=== PATIENT | male | born 1960 | race Caucasian/White ===

== ENCOUNTER 2020-05-07 10:00 | Day surgery (SDC) | payer OTHER, SELFPAY ==
[2020-05-06 12:41] VITALS: BMI 30.6
--- NOTE | 2020-05-06 13:34 | HO.ANESPROP2 ---
Documented by User: Nicole Espinoza 05/06/20 13:35 HPI - Anesthesia Eval Consult details Narrative: 60yo M for Upper Endoscopy [facility] Past Medical History Medical History (Updated 05/06/20 @ 12:35 by Moi Mike) Allergic rhinitis Anxiety BPH (benign prostatic hyperplasia) Chronic abdominal pain Chronic back pain Congenital cystic kidney disease Constipation Dyslipidemia GERD (gastroesophageal reflux disease) HTN (hypertension) Internal hemorrhoids with complication Metabolic syndrome DUNIA (obstructive sleep apnea) Overweight Surgical History Surgical History (Updated 05/06/20 @ 12:35 by Moi Mike) H/O abdominal surgery H/O colonoscopy H/O hemorrhoidectomy H/O hernia repair History of esophagogastroduodenoscopy (EGD) Social History Social History Smoking Status: Never smoker Second Hand Smoke Exposure: No Use of substances other than those prescribed or required for medical reasons: No Advance Directives: No Advance Directives Information Provided: No Advance Directives on File: No Meds Allergies Allergy/AdvReac Type Severity Reaction Status Date / Time No Known Allergies Allergy Unverified 02/21/20 16:08 Home Medications Medication Instructions Recorded Confirmed Type clonazepam 2 mg PO TID 05/06/20 05/06/20 History lisinopril 1 tab PO DAILY 05/06/20 05/06/20 History loratadine 10 mg PO DAILY 05/06/20 05/06/20 History metoprolol succinate 1 tab PO DAILY 05/06/20 05/06/20 History sildenafil [Viagra] 1 tab PO DAILY 05/06/20 05/06/20 History simethicone 125 mg PO QID 05/06/20 05/06/20 History tamsulosin 1 cap PO DAILY 05/06/20 05/06/20 History Exam Exam Date and Time: May 06, 2020 1334 Height,Weight and Vital Signs: Height 5 ft 6.75 in Weight 87.997 kg Pertinent Lab Results Pertinent Lab Results: Laboratory Tests 01/13/20 03/05/20 11:46 11:46 WBC 5.6 Hgb 17.5 Hct 51.3 Plt Count 169 Sodium 139 Potassium 3.9 Chloride 104 BUN 12 Creatinine 1.11 Assessment and Plan Assessment Anesthesia Assessment: Chart Reviewed Documented by User: Antonietta Lacey 05/07/20 10:31 PMF Past Medical History Medical History (Updated 05/06/20 @ 12:35 by Moi Mike) Allergic rhinitis Anxiety BPH (benign prostatic hyperplasia) Chronic abdominal pain Chronic back pain Congenital cystic kidney disease Constipation Dyslipidemia GERD (gastroesophageal reflux disease) HTN (hypertension) Internal hemorrhoids with complication Metabolic syndrome DUNIA (obstructive sleep apnea) Overweight Surgical History Surgical History (Updated 05/06/20 @ 12:35 by Moi Mike) H/O abdominal surgery H/O colonoscopy H/O hemorrhoidectomy H/O hernia repair History of esophagogastroduodenoscopy (EGD) Social History Social History Smoking Status: Never smoker Second Hand Smoke Exposure: No Use of substances other than those prescribed or required for medical reasons: No Advance Directives: No Advance Directives Information Provided: No Advance Directives on File: No Meds Allergies Allergy/AdvReac Type Severity Reaction Status Date / Time No Known Allergies Allergy Unverified 02/21/20 16:08 Home Medications Medication Instructions Recorded Confirmed Type clonazepam 2 mg PO TID 05/06/20 05/06/20 History lisinopril 1 tab PO DAILY 05/06/20 05/06/20 History loratadine 10 mg PO DAILY 05/06/20 05/06/20 History metoprolol succinate 1 tab PO DAILY 05/06/20 05/06/20 History sildenafil [Viagra] 1 tab PO DAILY 05/06/20 05/06/20 History simethicone 125 mg PO QID 05/06/20 05/06/20 History tamsulosin 1 cap PO DAILY 05/06/20 05/06/20 History Exam Airway Mallampati Class: III TM Dist: >3cm Neck ROM: Full Partial: Upper Heart: Rrr Lungs: CTa BL Assessment and Plan Assessment Anesthesia Assessment: Anesthesia Plan Discussed and Chart Reviewed Final Anesthetic Review NPO: Yes ASA Class: III Final Preanesthetic Review: Meds/Allgs Chart Reviewed and Consent Obtained/Reviewed Patient Risk: Intermediate Procedure Risk: Intermediate Anesthetic Plan Anesthetic Plan: MAC: Disposition: Standard PACU
[2020-05-07 10:22] VITALS: BP 152/92; PULSE 75; RESP 16; TEMP 36.2; O2SAT 96
[2020-05-07] MEDS: Lactated Ringers 1,000 ML 100 ML IVCONT (11:02)
--- NOTE | 2020-05-07 11:35 | P.HPSUR_ITS ---
Pre-Procedural Eval Section B Chief Complaint: Bloating,Upper Abdominal Pain Relevant Family History (Specify if Yes): No Relevant Social History: None Present Medications: see Short Stay Collaborative assessment Medical History: Significant History (Allergic rhinitis Anxiety BPH (benign prostatic hyperplasia) Chronic abdominal pain Chronic back pain Congenital cystic kidney disease Constipation Dyslipidemia GERD (gastroesophageal reflux disease) HTN (hypertension), Internal hemorrhoids, Metabolic syndrome, DUNIA ) History of Previous Operations: Relevant previous surgery/procedure and date(s) (H/O abdominal surgery H/O colonoscopy H/O hemorrhoidectomy H/O hernia repair) Allergies: Allergies Allergy/AdvReac Type Severity Reaction Status Date / Time No Known Allergies Allergy Unverified 02/21/20 16:08 Review of Systems Sugical H&P ROS: Negative: Constitution, Cardiovascular, Respiratory, Neurological, Psychiatric, Hem-Onc, Allergic/Immunologic, Gastrointestinal, Genitourinary, Musculoskeletal, Integumentary, Endocrine and Eyes/Ears/Nose/Throat Exam Surgical H&P Exam: Normal: HEENT, Normal: Heart, Normal: Lungs, Normal: Extre mities, Normal: Abdomen, Normal: Skin and Normal: Neurological Plan Diagnosis/Plan: Unchanged Patient has been examined and remains a candidate for the planned procedure
--- NOTE | 2020-05-07 11:37 | PM.OP ---
Brief Operative Note Date of Service: 05/07/20 Pre-op diagnosis: abdo pain Post-op diagnosis: same Procedure: see op note Surgeon: Tony Shea MD Anesthesia: MAC Estimated blood loss (mL): 0 Condition: stable Disposition: PACU
--- NOTE | 2020-05-07 11:37 | W.PM.OPN ---
Operative Note Operative Note Date of Service: 05/07/20 Narrative: Procedure Description: EGD FLEXIBLE TRANSORAL UPPER GASTROINTESTINAL ENDOSCOPY UPPER ENDOSCOPY Consent: Indications for the procedure and potential complications of bleeding, perforation, reaction to medications and missed diagnosis were discussed with the patient and informed consent was obtained. Instrument: Olympus GIF H 190 J mid size upper endoscope Monitoring: Vital signs and clinical assessment, continuous EKG monitoring, Pulse oximetry, Carbon Dioxide monitoring and blood pressure monitoring were done throughout the procedure. Procedure: The patient was placed in the left lateral decubitis position and pre-procedure medications were administered and a bite block was placed. The endoscope was inserted into the mouth and advanced under direct vision to the third part of duodenum. A careful inspection was made as the upper endoscope was withdrawn including a retroflexed examination of the proximal stomach; Findings and interventions are described below. Findings: Larynx:normal Esophagus: GE junction at 35 cm, diaphragm hiatus at 37 cm, no varices or esophagitis. Possible short segment Barretts, bx taken from GEJ Stomach: Patchy gastric erythema. Biopsies were obtained. Grade 3 flap valve on retroflexed examination of the cardia with lax LES, which would predispose to GERD Duodenum: Normal bulb and descending duodenum, bx taken Intervention: Biopsies as noted above Impression/Findings: gastritis hiatal hernia possible barretts lax LES PLAN: optimize PPI reflux precautions if sx persist then may benefit from fundoplication and hernia repair
[2020-05-07 12:05] VITALS: BP 119/92; PULSE 75; RESP 16; TEMP 36.1; O2SAT 97
[2020-05-07 12:20] VITALS: BP 128/92; PULSE 74; RESP 16; O2SAT 95
[2020-05-07 12:35] VITALS: BP 137/88; PULSE 73; RESP 16; TEMP 36.1; O2SAT 97
== END 2020-05-07 13:19 | disposition home or self-care (01) ==
PROVIDERS: PCP Family Medicine; Visit Provider Internal Medicine Gastroenterology
PROC: 0DJ08ZZ Inspection of Upper Intestinal Tract, Via Natural or Artificial Opening Endoscopic (ICD-10-PCS; CPT 43235; principal; 2020-05-07 10:10)
DX: K29.50 Unspecified chronic gastritis without bleeding (principal); K44.9 Diaphragmatic hernia without obstruction or gangrene; K21.9 Gastro-esophageal reflux disease without esophagitis; J30.9 Allergic rhinitis, unspecified; G47.33 Obstructive sleep apnea (adult) (pediatric); Z79.899 Other long term (current) drug therapy
CPT/HCPCS: 43239; 88305; 88342

== ENCOUNTER 2020-05-23 11:42 | Outpatient (REF) | payer OTHER, SELFPAY | END 2020-05-23 11:43 | disposition home or self-care (01) | LOC: HO.LAB 11:42 | PROVIDERS: PCP Family Medicine; Visit Provider Internal Medicine | DX: Z20.828 Contact with and (suspected) exposure to other viral communicable diseases (principal) | CPT/HCPCS: C9803; U0003 ==

== ENCOUNTER → 2020-07-29 11:13 | Outpatient (BNVA) | payer OTHER, SELFPAY | PROVIDERS: PCP Family Medicine; Visit Provider Internal Medicine Gastroenterology | DX: M79.18 Myalgia, other site (principal) | CPT/HCPCS: 99212 ==

== ENCOUNTER → 2020-08-18 13:33 | Outpatient (BNVA) | payer OTHER, SELFPAY | PROVIDERS: PCP Family Medicine; Visit Provider Nurse Practitioner Family | DX: R19.8 Other specified symptoms and signs involving the digestive system and abdomen (principal) | CPT/HCPCS: 99212 ==

== ENCOUNTER → 2020-09-05 07:25 | Outpatient (REF) | payer OTHER, SELFPAY ==
--- NOTE | ~2020-09-05 | NM_ITS ---
EXAMINATION: NM RADIONUCLIDE SOLID FOOD GASTRIC EMPTYING 4-HOUR STUDY CLINICAL INFORMATION: Early satiety COMPARISON: None TECHNIQUE: A standard meal consisting of 4 oz of Egg Beaters brand tagged with 0.93 microcuries Tc-99m Sulfur Colloid, 8 oz water and 1 slices of toast with jelly was administered orally to the patient. Images were obtained using a dual head gamma camera in the anterior and posterior projections over of the stomach immediately post ingestion and at hourly intervals up to 4 hours post ingestion. The anterior and posterior counts at each time interval were averaged using the geometric mean and expressed as percentage of the immediate post ingestion counts. FINDINGS: There is good visualization of activity in the stomach immediately post ingestion. As the study progresses, there is good clearance of activity from the stomach and visualization of progressively increasing small bowel activity. By the end of the study, there is almost no retention noted in the stomach. Retention in the stomach at each time interval was: 1 hour 29% (normal 37%-90%) 2 hours 2%% (normal 30%-60%) 3 hours 2%% 4 hours 0% (normal 0%-10%) NM/MN gastric emptying study IMPRESSION: Normal 4-hour solid food gastric emptying study.
== END ==
LOC: HO.NUCMED 07:25
PROVIDERS: PCP Family Medicine; Visit Provider Internal Medicine Gastroenterology
DX: R68.81 Early satiety (principal)
CPT/HCPCS: 78264; A9541

== ENCOUNTER 2020-10-10 10:40 | Emergency (ER) | payer OTHER, SELFPAY ==
--- NOTE | ~2020-10-10 | CT_ITS ---
EXAMINATION: CT ABDOMEN AND PELVIS WITH CONTRAST CLINICAL INFORMATION: Abdominal distention x5 days. COMPARISON: CT abdomen and pelvis with IV contrast 01/13/2020 TECHNIQUE: Multidetector volumetric images were obtained from the superior aspect of the liver through the pubic symphysis following administration 85 mL of Omnipaque 350 intravenous contrast. Sagittal and coronal reformatted images were obtained on the technologist's workstation. Oral contrast: No This CT examination was performed using dose optimization techniques as appropriate, variously including the following: *Automated exposure control *Adjustment of mA and/or kV according to patient size (this includes techniques or standardized protocols for targeted exams where dose is matched to indication/reason for exam; i.e. extremities or head) *Use of iterative reconstruction technique DLP: 731 mGy-cm FINDINGS: LUNG BASES: The visualized lung bases are unremarkable. LIVER, GALLBLADDER, AND BILIARY TREE: The liver is normal in size, shape, and attenuation. No focal hepatic lesion or biliary ductal dilatation is present. The gallbladder is unremarkable with no evidence of radiopaque gallstones, gallbladder wall thickening, or obvious pericholecystic inflammatory changes. PANCREAS: Unremarkable. SPLEEN: Unremarkable. ADRENAL GLANDS: Unremarkable. KIDNEYS AND URETERS: The kidneys are normal in size, shape, and attenuation. No hydronephrosis, hydroureter, or calculi seen. No perinephric stranding. There is a hypodense cyst in the upper pole measuring 3.7 x 3.5 cm. BLADDER: Bladder is nondistended. There is no bladder wall thickening. GASTROINTESTINAL TRACT: There is scattered stool and gas seen in the colon without any significant distention. The small bowel loops are normal caliber. Appendix is normal caliber. There is no free air or free fluid. ABDOMINAL WALL: No significant hernia is appreciated. LYMPH NODES: Normal. VASCULAR: Unremarkable. PELVIC VISCERA: Unremarkable. OSSEOUS STRUCTURES: There is mild ventral spondylosis lumbar spine. No fracture or lytic process seen. CT/CT abdomen pelvis w con IMPRESSION: Moderate prostate enlargement with dystrophic calcification central gland. There is no bowel obstruction, distention. There is no free fluid. Simple cyst upper pole left kidney.
[2020-10-10 10:52] VITALS: BP 131/87; PULSE 78; RESP 18; TEMP 36.9; O2SAT 96; BMI 33.3
[2020-10-10 11:32] LABS: MANUAL DIFF FLAG NO
[2020-10-10 11:39] LABS: INTERNATIONAL NORM RATIO 1.1 (0.9-1.1); Prothrombin Time 13.5 SEC (10.8-13.0)
[2020-10-10 11:45] LABS: Basophils Percent Auto 0.2 % (0-2); Eosinophils Absolute Auto 0.1 X10*3/uL (0.0-0.4); Eosinophils Percent Auto 2.4 % (0-4); Hematocrit 49.8 % (42-52); Hemoglobin 16.9 g/dl (14.0-18.0); Imm Gran Abs Auto 0.01 X10*3/uL (0.00-0.03); Imm Gran Pct Auto 0.2 % (0.0-0.4); Lymphocytes Percent Auto 34.2 % (20-40); Mean Corpuscular HGB Conc 33.9 g/dl (31.0-36.0); Mean Corpuscular Volume 91.4 fL (80-98); Mean Platelet Volume 12.2 fL (9.4-12.4); Monocytes Absolute Auto 0.6 X10*3/uL (0.1-1.2); Monocytes Percent Auto 10.3 % (2-11); Neutrophils Absolute Auto 3.1 X10*3/uL (2.0-8.3); Neutrophils Percent Auto 52.7 % (45-73); Platelet Count 154 X10*3/uL (160-400); Red Blood Count 5.45 X10*6/uL (4.60-5.80); Red Cell Distribution Width 12.2 % (11.0-16.0); White Blood Count 5.8 X10*3/uL (4.8-10.8)
[2020-10-10 11:46] VITALS: BP 116/83; PULSE 68; RESP 14; TEMP 37; O2SAT 98
[2020-10-10 12:01] LABS: Glucose Urine UA NEG (NEG); Leukocyte Esterase Urine NEG (NEG); Nitrite Urine NEG (NEG); Specific Gravity - Urine 1.025 (1.005-1.025); Urine Blood TRACE (NEG); Urine Ketones NEG (NEG); Urine Protein NEG (NEG-TRACE)
[2020-10-10 12:03] LABS: Appearance Urine CLEAR; Color Urine YELLOW; Ethanol < 10 mg/dL
[2020-10-10 12:05] LABS: Alanine Aminotransferase 30 U/L (0-40); Albumin Level 4.1 g/dL (3.5-5.0); Alkaline Phosphatase 68 U/L (39-117); Anion Gap 11 (12-20); Aspartate Amino Transferase 23 U/L (5-37); Blood Urea Nitrogen 12 mg/dL (9-16); Carbon Dioxide 26 mmol/L (22-29); Chloride 107 mmol/L (96-108); Creatinine Clr Calc Pharmacy 79.2; Estimated Glomerular Filt Rate > 60; Glucose Random 83 mg/dL (60-115); Lipase 17 U/L (8-78); Magnesium 2.3 mg/dL (1.6-2.6); Sodium 140 mmol/L (135-145); Total Protein 7.1 g/dL (6.5-8.0)
[2020-10-10 12:10] LABS: Mucus Urine 1+ /LPF; RBC Urine 0-2 /HPF (0); Squamous Epithelial Cell Urine TRACE /LPF; WBC Urine 0 /HPF (0-4)
[2020-10-10] MEDS: iohexoL 350 MG/ML 100 ML INFUS..BTL IV (13:27)
--- NOTE | 2020-10-10 13:38 | ED_ITS ---
HPI - Abdominal Pain General Chief Complaint: Abdominal Pain Stated Complaint: BLOTTING ABD PAIN Time Seen by Provider: 10/10/20 10:48 Source: patient Mode of arrival: ambulatory Limitations: language barrier ([place]-speaking) History of Present Illness HPI narrative: 60-year-old male with a past medical history of chronic abdominal pain/fullness in the right upper quadrant where he had an excision of an old lipoma, congenital cystic kidney disease, GERD, BPH, constipation, hemorrhoids, overweight, hypertension, dyslipidemia and anxiety disorder being followed by pesticide control inspector Dr. Shea upper quadrant pain/fullness recently had an endoscope by Dr. Moreau on 05/2018 with biopsy diagnosis of gastritis negative H pylori and colonoscopy on 07/2017 at [facility] by Dr. Hercules which did not show anything significant presenting to the ED with complaints of acute on chronic worsening right upper quadrant abdominal pain/fullness over the past 5 days. Denies any dizziness, headaches, fevers, neck pain/stiffness, nausea/vomiting, chest pain, shortness of breath, dyspnea on exertion, orth opnea, palpitations, radiation of the abdominal pain to the back, hematuria, dysuria, black or bloody stools or any other symptoms complaints or concerns at this time. MD elicited complaint: abdominal pain Pertinent past history: gastritis Onset (ago): day(s) (Five days worse today) Pain Consistency: constant Location: RUQ Severity: moderate Quality: aching and fullness Radiation: none Migration to: no migration Exacerbating factors: nothing Relieving factors: nothing Associated symptoms: denies other symptoms Related Data Home Medications Medication Instructions Recorded Confirmed clonazepam 2 mg PO TID 05/06/20 05/06/20 lisinopril 1 tab PO DAILY 05/06/20 05/06/20 loratadine 10 mg PO DAILY 05/06/20 05/06/20 metoprolol succinate 1 tab PO DAILY 05/06/20 05/06/20 sildenafil [Viagra] 1 tab PO DAILY 05/06/20 05/06/20 simethicone 125 mg PO QID 05/06/20 05/06/20 tamsulosin 1 cap PO DAILY 05/06/20 05/06/20 Previous Rx's Medication Instructions Recorded pantoprazole 40 mg PO BID #60 tab 05/07/20 capsaicin 0.025 % topical cream 1 appl TOPICAL BID #60 g 07/29/20 nortriptyline 10 mg capsule 10 mg PO BEDTIME #30 cap 09/11/20 Allergies Allergy/AdvReac Type Severity Reaction Status Date / Time No Known Allergies Allergy Verified 08/18/20 13:48 Review of Systems Review of Systems Constitutional : No Weight loss, No Fever, No Chills, No Night Sweats, No Fatigue, NoMalaise ENT/Mouth: No ear pain, No sore throat, No Difficulty swallowing Cardiovascular : No Chest Pain, No SOB, No Dyspnea on Exertion, No Orthopnea, NoEdema, No Palpitations Respiratory : No Cough, No Sputum, No Wheezing, No Dyspnea Gastrointestinal : Positive abdominal pain/fullness/distension sensation No Dell sea, No Vomiting, No Diarrhea, No blood streaked emesis, No coffee-ground emesis, No gross hematemesis, No blood streak stool, No gross hematochezia, No Melena Genitourinary : No irregular bleeding, No Dysuria, No Urinary Frequency, No Hematuria,No Urinary Incontinence, No Urgency, No Flank Pain Musculoskeletal : No joint pain, No Myalgias, No Joint Swelling Skin : No Skin Lesions, No rash Neuro : No Weakness, No Numbness, No Paresthesias, No Loss of Consciousness, NoDizziness, No Headache Psych : No Social Issues, Heme/Lymph: No Bruising, No Bleeding,No Lymphadenopathy Endocrine : No Polyuria, No Polydipsia, No Temperature Intolerance Yes all other systems are reviewed and are negative Physical Exam Vital Signs: Vital Signs: Last Vital Signs Temp 98.6 F 10/10/20 11:46 Pulse 68 10/10/20 11:46 Resp 14 10/10/20 11:46 BP 116/83 10/10/20 11:46 Pulse Ox 98 10/10/20 11:46 Body Mass Index 33.3 vital signs have been reviewed as normal and appeared to be correct. Blood pressure normal. Heart rate normal. Respiration rate normal. Temperature normal. Oxygen saturation normal. Appearance: Alert. Oriented X3. No acute distress. Head: Normal external exam. Normocephalic. Eyes: PERRLA. EOMI. Conjunctiva and sclera normal. Eyelids normal. ENT: Pharynx normal. Uvula midline. Moist mucous membranes. No trismus noted. No drooling noted. No muffled voice noted. Neck: Normal inspection. Neck supple. FROM. No adenopathy. No meningeal signs. CVS: Normal heart rate and rhythm. Heart sound normal. No murmurs noted. Pulses normal throughout. Respiratory: No respiratory distress. Painless inspiration. Breath sounds normal. No wheezes/rales/rhonchi noted. Chest nontender. No accessory muscle usage noted or decreased air movement noted. Abdomen: Soft and mild tenderness to palpation to right upper quadrant. Nondistended. No guarding. No rigidity. Bowel sounds normal in all 4 quadrants. No distention noted. No organomegaly noted. No visible injury noted. No r ebound tenderness. Negative Rovsing sign. Negative obturator's sign. Negative psoas sign. Negative Benton sign. Back: No CVA tenderness. Full range of motion noted. Skin: Skin warm and dry. Normal skin color. Normal skin turgor. No rashes/lesions/lacerations noted. Extremities: Extremities exhibit normal range of motion. Extremities nontender. Neuro: Oriented X 3. No motor deficit. No sensory deficit. Reflexes normal. Normal steady gait. Course Course Course Narrative: 14:30pm - labs obtained and all within normal limits. UA within normal limits no evidence of UTI. ETOH level negative. CT scan of abdomen and pelvis revealed chronic changes no acute processes noted. Therefore will DC home with symptomatic treatment instructions to follow-up with pesticide control inspector. Sharon ent understands agrees with this plan. MDM - Abdominal Pain MDM Narrative Medical decision making narrative: 11am - 60-year-old male with a past medical history of chronic abdominal pain/fullness in the right upper quadrant where he had an excision of an old lipoma, congenital cystic kidney disease, GERD, BPH, constipation, hemorrhoids, overweight, hypertension, dyslipidemia and anxiety disorder being followed by pesticide control inspector Dr. Shea upper quadrant pain/fullness recently had an endoscope by Dr. Moreau on 05/2018 with biopsy diagnosis of gastritis negative H pylori and colonoscopy on 07/2017 at [facility] by Dr. Hercules which did not show anything significant presenting to the ED with complaints of acute on chronic worsening right upper quadrant abdominal pain/fullness over the past 5 days. - Plan: Labs, CT scan of abdomen pelvis, UA. Then re-evaluate. Medical Records Attestation: I reviewed the patient's medical records. Lab Data Attestation: I reviewed the patient's lab results. Result diagrams: 10/10/20 11:25 10/10/20 11:25 Labs: Lab Results 10/10/20 10/10/20 10/10/20 Range/Units 11:25 11:25 11:25 WBC 5.8 (4.8-10.8) X10*3/uL RBC 5.45 (4.60-5.80) X10*6/uL Hgb 16.9 (14.0-18.0) g/dl Hct 49.8 (42-52) % MCV 91.4 (80-98) fL MCH 31.0 (27.0-33.0) pg MCHC 33.9 (31.0-36.0) g/dl RDW 12.2 (11.0-16.0) % Plt Count 154 L (160-400) X10*3/uL MPV 12.2 (9.4-12.4) fL Immature Gran % (Auto) 0.2 (0.0-0.4) % Neut % (Auto) 52.7 (45-73) % Lymph % (Auto) 34.2 (20-40) % Mineral % (Auto) 10.3 (2-11) % Eos % (Auto) 2.4 (0-4) % Baso % (Auto) 0.2 (0-2) % Lymph # (Auto) 2.0 (1.2-4.9) X10*3/uL Mineral # (Auto) 0.6 (0.1-1.2) X10*3/uL Eos # (Auto) 0.1 (0.0-0.4) X10*3/uL Baso # (Auto) 0.0 (0.0-0.2) X10*3/uL Abs Immat Gran (auto) 0.01 (0.00-0.03) X10*3/uL Absolute Neuts (auto) 3.1 (2.0-8.3) X10*3/uL Absolute Nucleated RBC 0.000 (0.0-0.012) X10*3/uL Nucleated RBC % (auto) 0.0 (0.0-0.2) /100WBC Hold Purple Top SEE NOTE PT 13.5 H (10.8-13.0) SEC INR 1.1 (0.9-1.1) Sodium (135-145) mmol/L Potassium (3.3-5.1) mmol/L Chloride (96-108) mmol/L Carbon Dioxide (22-29) mmol/L Anion Gap (12-20) BUN (9-16) mg/dL Creatinine (0.5-1.4) mg/dL Estim Creat Clear Calc Estimated GFR Random Glucose (60-115) mg/dL Calcium (8.4-10.2) mg/dL Magnesium (1.6-2.6) mg/dL Total Bilirubin (0.0-1.0) mg/dL AST (5-37) U/L ALT (0-40) U/L Alkaline Phosphatase (39-117) U/L Total Protein (6.5-8.0) g/dL Albumin (3.5-5.0) g/dL Lipase (8-78) U/L Urine Color Urine Appearance Urine pH (5.0-8.0) Ur Specific Sod (1.005-1.025) Urine Protein (NEG-TRACE) MG/DL Urine Glucose (UA) (NEG) MG/DL Urine Ketones (NEG) MG/DL Urine Blood (NEG) Urine Nitrite (NEG) Ur Leukocyte Esterase (NEG) Urine RBC (0) /HPF Urine WBC (0-4) /HPF Ur Squamous Epith Cells /LPF Urine Bacteria /LPF Urine Mucus /LPF Ethyl Alcohol mg/dL 10/10/20 10/10/20 10/10/20 Range/Units 11:25 11:25 11:25 WBC (4.8-10.8) X10*3/uL RBC (4.60-5.80) X10*6/uL Hgb (14.0-18.0) g/dl Hct (42-52) % MCV (80-98) fL MCH (27.0-33.0) pg MCHC (31.0-36.0) g/dl RDW (11.0-16.0) % Plt Count (160-400) X10*3/uL MPV (9.4-12.4) fL Immature Gran % (Auto) (0.0-0.4) % Neut % (Auto) (45-73) % Lymph % (Auto) (20-40) % Mineral % (Auto) (2-11) % Eos % (Auto) (0-4) % Baso % (Auto) (0-2) % Lymph # (Auto) (1.2-4.9) X10*3/uL Mineral # (Auto) (0.1-1.2) X10*3/uL Eos # (Auto) (0.0-0.4) X10*3/uL Baso # (Auto) (0.0-0.2) X10*3/uL Abs Immat Gran (auto) (0.00-0.03) X10*3/uL Absolute Neuts (auto) (2.0-8.3) X10*3/uL Absolute Nucleated RBC (0.0-0.012) X10*3/uL Nucleated RBC % (auto) (0.0-0.2) /100WBC Hold Purple Top PT (10.8-13.0) SEC INR (0.9-1.1) Sodium 140 (135-145) mmol/L Potassium 4.0 (3.3-5.1) mmol/L Chloride 107 (96-108) mmol/L Carbon Dioxide 26 (22-29) mmol/L Anion Gap 11 L (12-20) BUN 12 (9-16) mg/dL Creatinine 1.04 (0.5-1.4) mg/dL Estim Creat Clear Calc 79.2 Estimated GFR > 60 Random Glucose 83 (60-115) mg/dL Calcium 9.0 (8.4-10.2) mg/dL Magnesium 2.3 (1.6-2.6) mg/dL Total Bilirubin 1.0 (0.0-1.0) mg/dL AST 23 (5-37) U/L ALT 30 (0-40) U/L Alkaline Phosphatase 68 (39-117) U/L Total Protein 7.1 (6.5-8.0) g/dL Albumin 4.1 (3.5-5.0) g/dL Lipase 17 (8-78) U/L Urine Color YELLOW Urine Appearance CLEAR Urine pH 6.0 (5.0-8.0) Ur Specific Sod 1.025 (1.005-1.025) Urine Protein NEG (NEG-TRACE) MG/DL Urine Glucose (UA) NEG (NEG) MG/DL Urine Ketones NEG (NEG) MG/DL Urine Blood TRACE (NEG) Urine Nitrite NEG (NEG) Ur Leukocyte Esterase NEG (NEG) Urine RBC 0-2 (0) /HPF Urine WBC 0 (0-4) /HPF Ur Squamous Epith Cells TRACE /LPF Urine Bacteria NONE /LPF Urine Mucus 1+ /LPF Ethyl Alcohol < 10 mg/dL Imaging Data CT scan of abdomen and pelvis with IV contrast: Attestation: I personally reviewed and interpreted this imaging study as follows: Radiologist's impression: FINDINGS: LUNG BASES: The visualized lung bases are unremarkable. LIVER, GALLBLADDER, AND BILIARY TREE: The liver is normal in size, shape, and attenuation. No focal hepatic lesion or biliary ductal dilatation is present. The gallbladder is unremarkable with no evidence of radiopaque gallstones, gallbladder wall thickening, or obvious pericholecystic inflammatory changes. PANCREAS: Unremarkable. SPLEEN: Unremarkable. ADRENAL GLANDS: Unremarkable. KIDNEYS AND URETERS: The kidneys are normal in size, shape, and attenuation. No hydronephrosis, hydroureter, or calculi seen. No perinephric stranding. There is a hypodense cyst in the upper pole measuring 3.7 x 3.5 cm. BLADDER: Bladder is nondistended. There is no bladder wall thickening. GASTROINTESTINAL TRACT: There is scattered stool and gas seen in the colon without any significant distention. The small bowel loops are normal caliber. Appendix is normal caliber. There is no free air or free fluid. ABDOMINAL WALL: No significant hernia is appreciated. LYMPH NODES: Normal. VASCULAR: Unremarkable. PELVIC VISCERA: Unremarkable. OSSEOUS STRUCTURES: There is mild ventral spondylosis lumbar spine. No fracture or lytic process seen. CT/CT abdomen pelvis w con IMPRESSION: Moderate prostate enlargement with dystrophic calcification central gland. There is no bowel obstruction, distention. There is no free fluid. Simple cyst upper pole left kidney. Critical Care Time Critical Care Time Critical Care Time: Yes Total Critical Care Time: 60 Attestation: I personally attest to this time spent taking care of the patient Discharge Plan Discharge Clinical Impression: Abdominal pain, Abdominal distension, Enlarged prostate, Kidney cysts Patient Disposition: Home, Self-Care Instructions: Abdominal Pain (ED), Kidney Cyst (ED) Prescriptions: No Action nortriptyline 10 mg capsule 10 mg PO BEDTIME Qty: 30 RF: 1 sildenafil [Viagra] 50 mg tablet 1 tab PO DAILY RF: 0 lisinopril 20 mg tablet 1 tab PO DAILY RF: 0 metoprolol succinate 100 mg tablet extended release 24 hr 1 tab PO DAILY RF: 0 tamsulosin 0.4 mg capsule 1 cap PO DAILY RF: 0 clonazepam 2 mg Tablet 2 mg PO TID RF: 0 simethicone 125 mg tablet,chewable 125 mg PO QID RF: 0 loratadine 10 mg Tablet 10 mg PO DAILY RF: 0 pantoprazole 40 mg tablet,delayed release (DR/EC) 40 mg PO BID Qty: 60 RF: 4 capsaicin 0.025 % cream 1 appl topical BID Qty: 60 RF: 1 Referrals: Tony Shea MD [Physician] - 2 days Guerline Mckeon MD [Primary Care Provider] - 2 days Print Language: [place] [facility] Past Medical History Attestation statement: The following information was validated with the patient. Medical History Allergic rhinitis Anxiety BPH (benign prostatic hyperplasia) Chronic abdominal pain Chronic back pain Congenital cystic kidney disease Constipation Dyslipidemia GERD (gastroesophageal reflux disease) HTN (hypertension) Internal hemorrhoids with complication Metabolic syndrome DUNIA (obstructive sleep apnea) Overweight Surgical History H/O abdominal surgery H/O colonoscopy H/O hemorrhoidectomy H/O hernia repair History of esophagogastroduodenoscopy (EGD) Social History Social History Household Members: None Alcohol intake: never Smoking Status: Never smoker Second Hand Smoke Exposure: No Use of substances other than those prescribed or required for medical reasons: No Advance Directives: No Advance Directives Information Provided: No Current occupational status: unemployed
[2020-10-10 14:50] VITALS: BP 148/101; PULSE 72; RESP 16; TEMP 37.2; O2SAT 96
== END 2020-10-10 15:15 | disposition home or self-care (01) ==
PROVIDERS: Physician Assistant Medical; Emergency Provider Emergency Medicine; PCP Family Medicine
DX: R10.11 Right upper quadrant pain (principal); R14.0 Abdominal distension (gaseous); N40.0 Benign prostatic hyperplasia without lower urinary tract symptoms; N28.1 Cyst of kidney, acquired; I10 Essential (primary) hypertension; E78.5 Hyperlipidemia, unspecified
CPT/HCPCS: 36415; 74177; 80053; 80320; 81001; 81003; 83690; 83735; 85025; 85610; 99284; 99291; Q9967

== ENCOUNTER → 2020-10-17 08:50 | Outpatient (BNVA) | payer OTHER, SELFPAY | PROVIDERS: PCP Family Medicine; Visit Provider Internal Medicine Gastroenterology | DX: K59.00 Constipation, unspecified (principal) | CPT/HCPCS: 99212 ==

== ENCOUNTER → 2020-11-24 14:16 | Outpatient (BNVA) | payer OTHER, SELFPAY | PROVIDERS: PCP Family Medicine; Referring Provider Family Medicine; Visit Provider Surgery | DX: L76.82 Other postprocedural complications of skin and subcutaneous tissue (principal); K64.9 Unspecified hemorrhoids | CPT/HCPCS: 46600; 99212 ==

== ENCOUNTER 2020-12-15 12:52 | Outpatient (REF) | payer OTHER, SELFPAY ==
--- NOTE | ~2020-12-15 | US_ITS ---
EXAMINATION: US ABDOMEN LIMITED CLINICAL INFORMATION: Other postprocedural complications of skin. History of previous hernia repair. COMPARISON: CT abdomen pelvis 10/10/2020. Ultrasound abdomen 01/13/2020. TECHNIQUE: Real-time imaging of the right abdominal wall FINDINGS: No hernia is appreciated by ultrasound. No solid or cystic soft tissue mass or fluid collection is seen. US/US abdomen limited IMPRESSION: No abnormality seen by ultrasound.
== END 2020-12-15 12:53 | disposition home or self-care (01) ==
LOC: HO.US 12:52
PROVIDERS: Visit Provider Surgery
DX: L76.82 Other postprocedural complications of skin and subcutaneous tissue (principal)
CPT/HCPCS: 76705

== ENCOUNTER → 2020-12-17 11:04 | Outpatient (BNVA) | payer OTHER, SELFPAY | PROVIDERS: PCP Family Medicine; Referring Provider Family Medicine; Visit Provider Surgery | DX: L76.82 Other postprocedural complications of skin and subcutaneous tissue (principal) | CPT/HCPCS: 99212 ==

== ENCOUNTER → 2021-05-11 09:05 | Outpatient (BNVA) | payer OTHER, SELFPAY | PROVIDERS: PCP Family Medicine; Referring Provider Family Medicine; Visit Provider Internal Medicine Gastroenterology | DX: K21.9 Gastro-esophageal reflux disease without esophagitis (principal) | CPT/HCPCS: Q3014 ==

== ENCOUNTER 2021-05-11 09:54 | Outpatient (REF) | payer OTHER, SELFPAY | END 2021-05-11 09:55 | disposition home or self-care (01) | LOC: HO.LAB 09:54 | PROVIDERS: PCP Family Medicine; Visit Provider Internal Medicine | DX: Z20.822 Contact with and (suspected) exposure to COVID-19 (principal) | CPT/HCPCS: C9803; U0003; U0005 ==

== ENCOUNTER 2021-09-10 16:15 | Emergency (ER) | payer OTHER, SELFPAY ==
[2021-09-10 16:43] VITALS: BP 151/103; PULSE 125; RESP 18; TEMP 36.9; O2SAT 98; BMI 31.6
--- NOTE | 2021-09-10 19:16 | ED_ITS ---
HPI - General Adult General Chief complaint: Anxiety Stated complaint: unable to sleep Time Seen by Provider: 09/10/21 19:03 Source: patient Mode of arrival: ambulatory Limitations: no limitations History of Present Illness HPI narrative: Patient history of anxiety Klonopin 2 mg twice daily which she has been taking also supposed to be on Seroquel which she is not taking as he does not like the medicine side effects. Comes to the ER as he is not able to sleep for last 10 days very anxious unable to focus requesting to stay in the hospital as was in the past when he had similar episode here to stay in the hospital. Patient denied any hallucination or delusion patient lives alone no suicidal ideation or significant depression Related Data Home Medications Medication Instructions Recorded Confirmed clonazepam 1 mg tablet 1 tab PO BID 09/10/21 09/10/21 lisinopril 20 mg tablet 1 tab PO DAILY 09/10/21 09/10/21 metoprolol succinate 100 mg 1 tab PO DAILY 09/10/21 09/10/21 tablet,extended release 24 hr nortriptyline 10 mg capsule 1 cap PO BEDTIME 09/10/21 09/10/21 omeprazole 40 mg capsule,delayed 1 cap PO DAILY 09/10/21 09/10/21 release oxybutynin chloride 5 mg tablet 1 tab PO BEDTIME 09/10/21 09/10/21 pravastatin 40 mg tablet 1 tab PO BEDTIME 09/10/21 09/10/21 quetiapine 100 mg tablet 1 tab PO BEDTIME 09/10/21 09/10/21 Allergies Allergy/AdvReac Type Severity Reaction Status Date / Time No Known Allergies Allergy Verified 05/11/21 09:12 Review of Systems Review of Systems: Yes all other systems are reviewed and are negative [facility] Past Medical History Medical History Allergic rhinitis Anxiety BPH (benign prostatic hyperplasia) Chronic abdominal pain Chronic back pain Congenital cystic kidney disease Constipation Dyslipidemia GERD (gastroesophageal reflux disease) Hemorrhoids HTN (hypertension) Incisional pain Internal hemorrhoids with complication Metabolic syndrome DUNIA (obstructive sleep apnea) Overweight Surgical History H/O abdominal surgery H/O colonoscopy H/O hemorrhoidectomy H/O hernia repair History of esophagogastroduodenoscopy (EGD) Social History Social History Household Members: None Alcohol intake: never Patient Tobacco Use Status: Never used Tobacco Smoked in Last 30 Days: No Second Hand Smoke Exposure: No Use of substances other than those prescribed or required for medical reasons: No Advance Directives: No Advance Directives Information Provided: No Current occupational status: unemployed Physical Exam ED Vital Signs: Vital Signs - 24 hr 09/10/21 16:43 09/10/21 21:18 Temperature 98.5 F Pulse Rate 125 H 109 H Respiratory Rate 18 14 Blood Pressure 151/103 H 140/92 H Pulse Oximetry 98 97 BMI result Body Mass Index 31.6 Appearance: Alert. Oriented X3. No acute distress. Very anxious Eyes: PERRLA, No Nystagmus ENT: Pharynx normal. Oral Mucosa moist Neck: Normal inspection. Neck supple. CVS: Normal heart rate and rhythm. Pulses normal. Respiratory: No respiratory distress. Equal air entry bilateral, no wheezing/rales/rhonchi Abdomen: Soft and nontender. Bowel sounds are present, no mass palpable, no CVA tenderness Skin: Skin warm and dry. Normal skin color. Normal skin turgor. Extremities: No lower extremity edema. No calf tenderness psych: Very anxious no suicidal ideation or depression judgment fair no hallucination/ delusion Neuro: Oriented X 3. No motor deficit. No sensory deficit.No cerebellar signs , cranial nerves II-XII intact Medical Decision Making MDM Narrative Medical decision making narrative: Patient's increased anxiety lab workup stable except for mild UTI will pr escribe him Ceftin 500 mg twice daily for 7 days patient is medically cleared for crisis evaluation Lab Data Lab results reviewed: Yes I reviewed the patient's lab results. Result diagrams: 09/10/21 23:15 09/10/21 23:15 Labs: Lab Results 09/10/21 09/10/21 09/10/21 Range/Units 23:15 23:15 23:15 WBC 12.9 H (4.8-10.8) X10*3/uL RBC 5.43 (4.60-5.80) X10*6/uL Hgb 17.0 (14.0-18.0) g/dl Hct 51.1 (42.0-52.0) % MCV 94.1 (80.0-98.0) fL MCH 31.3 (27.0-33.0) pg MCHC 33.3 (31.0-36.0) g/dl RDW 12.0 (11.0-16.0) % Plt Count 202 (160-400) X10*3/uL MPV 11.7 (9.4-12.4) fL Immature Gran % (Auto) 0.3 (0.0-0.4) % Neut % (Auto) 77.9 H (45-73) % Lymph % (Auto) 14.9 L (20-40) % [place] % (Auto) 6.4 (2-11) % Eos % (Auto) 0.3 (0-4) % Baso % (Auto) 0.2 (0-2) % Lymph # (Auto) 1.9 (1.2-4.9) X10*3/uL [place] # (Auto) 0.8 (0.1-1.2) X10*3/uL Eos # (Auto) 0.0 (0.0-0.4) X10*3/uL Baso # (Auto) 0.0 (0.0-0.2) X10*3/uL Abs Immat Gran (auto) 0.04 H (0.00-0.03) X10*3/uL Absolute Neuts (auto) 10.0 H (2.0-8.3) x10*3/uL Absolute Nucleated RBC 0.000 (0.0-0.012) X10*3/uL Nucleated RBC % (auto) 0.0 (0.0-0.2) /100WBC Sodium 141 (135-145) mmol/L Potassium 3.8 (3.3-5.1) mmol/L Chloride 106 (96-108) mmol/L Carbon Dioxide 24 (22-29) mmol/L Anion Gap 15 (12-20) BUN 17 H (9-16) mg/dL Creatinine 1.07 (0.5-1.4) mg/dL Estim Creat Clear Calc 74.2 Estimated GFR > 60 Random Glucose 145 H D (60-115) mg/dL Calcium 9.3 (8.4-10.2) mg/dL Total Bilirubin 1.1 H (0.0-1.0) mg/dL AST 54 H (5-37) U/L ALT 59 H (0-40) U/L Alkaline Phosphatase 73 (39-117) U/L Total Protein 7.4 (6.5-8.0) g/dL Albumin 3.9 (3.5-5.0) g/dL TSH (0.32-4.0) uIU/mL Urine Color Urine Appearance Urine pH (5.0-8.0) Ur Specific [place] (1.005-1.025) Urine Protein (NEG-TRACE) MG/DL Urine Glucose (UA) (NEG) MG/DL Urine Ketones (NEG) MG/DL Urine Blood (NEG) Urine Nitrite (NEG) Ur Leukocyte Esterase (NEG) Urine RBC (0) /HPF Urine WBC (0-4) /HPF Ur Squamous Epith Cells /LPF Urine Bacteria /LPF Urine Opiates Screen (Not Detect) Urine Fentanyl Screen (Not Detect) Ur Barbiturates Screen (Not Detect) Ur Phencyclidine Scrn (Not Detect) Ur Amphetamines Screen (Not Detect) U Benzodiazepines Scrn (Not Detect) Urine Cocaine Screen (Not Detect) U Marijuana (THC) Screen (Not Detect) Ethyl Alcohol mg/dL COVID-19 (CEE) Negative (Negative) COVID-19 Clin Com See Note 09/10/21 09/10/21 09/10/21 Range/Units 23:15 23:15 23:15 WBC (4.8-10.8) X10*3/uL RBC (4.60-5.80) X10*6/uL Hgb (14.0-18.0) g/dl Hct (42.0-52.0) % MCV (80.0-98.0) fL MCH (27.0-33.0) pg MCHC (31.0-36.0) g/dl RDW (11.0-16.0) % Plt Count (160-400) X10*3/uL MPV (9.4-12.4) fL Immature Gran % (Auto) (0.0-0.4) % Neut % (Auto) (45-73) % Lymph % (Auto) (20-40) % [place] % (Auto) (2-11) % Eos % (Auto) (0-4) % Baso % (Auto) (0-2) % Lymph # (Auto) (1.2-4.9) X10*3/uL [place] # (Auto) (0.1-1.2) X10*3/uL Eos # (Auto) (0.0-0.4) X10*3/uL Baso # (Auto) (0.0-0.2) X10*3/uL Abs Immat Gran (auto) (0.00-0.03) X10*3/uL Absolute Neuts (auto) (2.0-8.3) x10*3/uL Absolute Nucleated RBC (0.0-0.012) X10*3/uL Nucleated RBC % (auto) (0.0-0.2) /100WBC Sodium (135-145) mmol/L Potassium (3.3-5.1) mmol/L Chloride (96-108) mmol/L Carbon Dioxide (22-29) mmol/L Anion Gap (12-20) BUN (9-16) mg/dL Creatinine (0.5-1.4) mg/dL Estim Creat Clear Calc Estimated GFR Random Glucose (60-115) mg/dL Calcium (8.4-10.2) mg/dL Total Bilirubin (0.0-1.0) mg/dL AST (5-37) U/L ALT (0-40) U/L Alkaline Phosphatase (39-117) U/L Total Protein (6.5-8.0) g/dL Albumin (3.5-5.0) g/dL TSH 3.35 (0.32-4.0) uIU/mL Urine Color YELLOW Urine Appearance CLOUDY Urine pH 5.5 (5.0-8.0) Ur Specific [place] >= 1.030 H (1.005-1.025) Urine Protein 2+ H (NEG-TRACE) MG/DL Urine Glucose (UA) NEG (NEG) MG/DL Urine Ketones 5 (NEG) MG/DL Urine Blood 3+ H (NEG) Urine Nitrite NEG (NEG) Ur Leukocyte Esterase 2+ H (NEG) Urine RBC 5-9 H (0) /HPF Urine WBC 15-29 H (0-4) /HPF Ur Squamous Epith Cells TRACE /LPF Urine Bacteria 1+ /LPF Urine Opiates Screen Not Detected (Not Detect) Urine Fentanyl Screen Not Detected (Not Detect) Ur Barbiturates Screen Not Detected (Not Detect) Ur Phencyclidine Scrn Not Detected (Not Detect) Ur Amphetamines Screen Not Detected (Not Detect) U Benzodiazepines Scrn POSITIVE H (Not Detect) Urine Cocaine Screen Not Detected (Not Detect) U Marijuana (THC) Screen Not Detected (Not Detect) Ethyl Alcohol mg/dL COVID-19 (CEE) (Negative) COVID-19 Clin Com 09/10/21 Range/Units 23:15 WBC (4.8-10.8) X10*3/uL RBC (4.60-5.80) X10*6/uL Hgb (14.0-18.0) g/dl Hct (42.0-52.0) % MCV (80.0-98.0) fL MCH (27.0-33.0) pg MCHC (31.0-36.0) g/dl RDW (11.0-16.0) % Plt Count (160-400) X10*3/uL MPV (9.4-12.4) fL Immature Gran % (Auto) (0.0-0.4) % Neut % (Auto) (45-73) % Lymph % (Auto) (20-40) % [place] % (Auto) (2-11) % Eos % (Auto) (0-4) % Baso % (Auto) (0-2) % Lymph # (Auto) (1.2-4.9) X10*3/uL [place] # (Auto) (0.1-1.2) X10*3/uL Eos # (Auto) (0.0-0.4) X10*3/uL Baso # (Auto) (0.0-0.2) X10*3/uL Abs Immat Gran (auto) (0.00-0.03) X10*3/uL Absolute Neuts (auto) (2.0-8.3) x10*3/uL Absolute Nucleated RBC (0.0-0.012) X10*3/uL Nucleated RBC % (auto) (0.0-0.2) /100WBC Sodium (135-145) mmol/L Potassium (3.3-5.1) mmol/L Chloride (96-108) mmol/L Carbon Dioxide (22-29) mmol/L Anion Gap (12-20) BUN (9-16) mg/dL Creatinine (0.5-1.4) mg/dL Estim Creat Clear Calc Estimated GFR Random Glucose (60-115) mg/dL Calcium (8.4-10.2) mg/dL Total Bilirubin (0.0-1.0) mg/dL AST (5-37) U/L ALT (0-40) U/L Alkaline Phosphatase (39-117) U/L Total Protein (6.5-8.0) g/dL Albumin (3.5-5.0) g/dL TSH (0.32-4.0) uIU/mL Urine Color Urine Appearance Urine pH (5.0-8.0) Ur Specific [place] (1.005-1.025) Urine Protein (NEG-TRACE) MG/DL Urine Glucose (UA) (NEG) MG/DL Urine Ketones (NEG) MG/DL Urine Blood (NEG) Urine Nitrite (NEG) Ur Leukocyte Esterase (NEG) Urine RBC (0) /HPF Urine WBC (0-4) /HPF Ur Squamous Epith Cells /LPF Urine Bacteria /LPF Urine Opiates Screen (Not Detect) Urine Fentanyl Screen (Not Detect) Ur Barbiturates Screen (Not Detect) Ur Phencyclidine Scrn (Not Detect) Ur Amphetamines Screen (Not Detect) U Benzodiazepines Scrn (Not Detect) Urine Cocaine Screen (Not Detect) U Marijuana (THC) Screen (Not Detect) Ethyl Alcohol < 10 mg/dL COVID-19 (CEE) (Negative) COVID-19 Clin Com Discharge Plan Discharge Clinical Impression: Anxiety, UTI (urinary tract infection) Patient Disposition: Still a Patient Prescriptions: No Action metoprolol succinate 100 mg tablet extended release 24 hr 1 tab PO DAILY 0RF lisinopril 20 mg tablet 1 tab PO DAILY 0RF quetiapine 100 mg tablet 1 tab PO BEDTIME 0RF clonazepam 1 mg tablet 1 tab PO BID 0RF pravastatin 40 mg tablet 1 tab PO BEDTIME 0RF omeprazole 40 mg capsule,delayed release(DR/EC) 1 cap PO DAILY 0RF nortriptyline 10 mg capsule 1 cap PO BEDTIME 0RF oxybutynin chloride 5 mg tablet 1 tab PO BEDTIME 0RF
[2021-09-10] MEDS: clonazePAM 1 MG TABLET PO (20:13)
[2021-09-10 21:18] VITALS: BP 140/92; PULSE 109; RESP 14; O2SAT 97
--- NOTE | 2021-09-10 22:54 | MHC.CARE ---
CARE Team meets with pt. He is profoundly anxious and states that he has had minimal sleep in the past 10 days. He reports multiple panic attacks, and decreased apatite. He reports that in 2002 he had a similar experience and was hospitalized here at [facility] [place]. He feels he needs to be admitted to psychiatry. CARE Team recommends that pt remain in the ED for full crisis assessment.
[2021-09-10 23:25] LABS: Appearance Urine CLOUDY; Color Urine YELLOW; Glucose Urine UA NEG (NEG); Leukocyte Esterase Urine 2+ (NEG); MANUAL DIFF FLAG NO; Nitrite Urine NEG (NEG); PH 5.5 (5.0-8.0); Specific Gravity - Urine >= 1.030 (1.005-1.025); Urine Blood 3+ (NEG); Urine Ketones 5 MG/DL (NEG); Urine Protein 2+ MG/DL (NEG-TRACE)
[2021-09-10 23:28] LABS: Basophils Percent Auto 0.2 % (0-2); Eosinophils Percent Auto 0.3 % (0-4); Hematocrit 51.1 % (42.0-52.0); Imm Gran Abs Auto 0.04 X10*3/uL (0.00-0.03); Imm Gran Pct Auto 0.3 % (0.0-0.4); Lymphocytes Absolute Auto 1.9 X10*3/uL (1.2-4.9); Lymphocytes Percent Auto 14.9 % (20-40); Mean Corpuscular HGB Conc 33.3 g/dl (31.0-36.0); Mean Corpuscular Hemoglobin 31.3 pg (27.0-33.0); Mean Corpuscular Volume 94.1 fL (80.0-98.0); Mean Platelet Volume 11.7 fL (9.4-12.4); Monocytes Absolute Auto 0.8 X10*3/uL (0.1-1.2); Monocytes Percent Auto 6.4 % (2-11); Neutrophils Percent Auto 77.9 % (45-73); Platelet Count 202 X10*3/uL (160-400); Red Blood Count 5.43 X10*6/uL (4.60-5.80); White Blood Count 12.9 X10*3/uL (4.8-10.8)
[2021-09-10 23:36] LABS: Bacteria Urine 1+ /LPF; Squamous Epithelial Cell Urine TRACE /LPF
[2021-09-10 23:47] LABS: Ethanol < 10 mg/dL
[2021-09-10 23:52] LABS: Amphetamine Screen Urine Not Detected (Not Detect); Barbiturates, Urine Not Detected (Not Detect); Benzodiazepines Screen Urine POSITIVE (Not Detect); COVID-19 Test Negative (Negative); Cannabinoid Screen Urine Not Detected (Not Detect); Cocaine Screen Urine Not Detected (Not Detect); Fentanyl, urine Not Detected (Not Detect); Opiate Screen Urine Not Detected (Not Detect); Phencyclidine Screen Urine Not Detected (Not Detect)
[2021-09-10 23:57] LABS: Alanine Aminotransferase 59 U/L (0-40); Albumin Level 3.9 g/dL (3.5-5.0); Alkaline Phosphatase 73 U/L (39-117); Anion Gap 15 (12-20); Aspartate Amino Transferase 54 U/L (5-37); Bilirubin Total 1.1 mg/dL (0.0-1.0); Blood Urea Nitrogen 17 mg/dL (9-16); Calcium 9.3 mg/dL (8.4-10.2); Carbon Dioxide 24 mmol/L (22-29); Chloride 106 mmol/L (96-108); Creatinine Clr Calc Pharmacy 74.2; Estimated Glomerular Filt Rate > 60; Glucose Random 145 mg/dL (60-115); Potassium 3.8 mmol/L (3.3-5.1); Sodium 141 mmol/L (135-145); Total Protein 7.4 g/dL (6.5-8.0)
[2021-09-11 00:08] LABS: TSH reflex Free T4 3.35 uIU/mL (0.32-4.0)
[2021-09-11] MEDS: clonazePAM 1 MG TABLET PO ×2 (01:22→08:22)
[2021-09-11] MEDS: HaloperidoL 5 MG TABLET PO (01:23)
[2021-09-11 04:31] VITALS: BP 130/92; PULSE 84; RESP 17; TEMP 37.2; O2SAT 96
--- NOTE | 2021-09-11 06:48 | PC.NURSE ---
Patient had hard time falling sleep, Klonopin 1 mg PO and Haldol mg PO administered with positive effect, patient slept rest of the night uninterrupted, N referral completed/confirmed/pending evaluation in the morning, behavior pleasant and non concerning, will continue to [id number].
--- NOTE | 2021-09-11 07:15 | PC.NURSE ---
patient appears to remain asleep at present respirations are even and unlabored patient appears in no distress
[2021-09-11 08:14] VITALS: BP 138/88; PULSE 85; RESP 18; O2SAT 96
[2021-09-11] MEDS: Omeprazole 40 MG CAPSULE.DR PO (08:22)
[2021-09-11] MEDS: lisinopriL 20 MG TABLET PO (08:22)
[2021-09-11] MEDS: Metoprolol Succinate ER 100 MG TAB.ER.24H PO (08:22)
== END 2021-09-11 14:38 | disposition home or self-care (01) ==
PROVIDERS: Emergency Provider Internal Medicine; PCP Family Medicine
DX: F41.9 Anxiety disorder, unspecified (principal); N39.0 Urinary tract infection, site not specified; Z20.822 Contact with and (suspected) exposure to COVID-19; I10 Essential (primary) hypertension; E78.5 Hyperlipidemia, unspecified; Z79.899 Other long term (current) drug therapy; Z79.02 Long term (current) use of antithrombotics/antiplatelets
CPT/HCPCS: 36415; 80053; 80307; 81001; 82077; 84443; 85025; 87635; 99284

== ENCOUNTER 2021-12-17 07:16 | Day surgery (SDC) | payer OTHER, SELFPAY ==
--- NOTE | 2021-12-16 09:05 | P.CONAN_ITS ---
Documented by User: Nicole Espinoza NP 12/16/21 09:06 HPI - Anesthesia Eval Consult details Narrative: 61yo M for Upper Endoscopy and Colonoscopy [facility] Active Problems Active Problems: All Active Problems (Updated 09/12/21 @ 00:02 by Wm Perez) Hemorrhoids (Acute) Incisional pain (Acute) Overweight (Acute) DUNIA (obstructive sleep apnea) (Acute) Metabolic syndrome (Acute) Internal hemorrhoids with complication (Acute) HTN (hypertension) (Acute) GERD (gastroesophageal reflux disease) (Acute) Anxiety (Acute) Constipation (Acute) Dyslipidemia (Acute) Congenital cystic kidney disease (Acute) Chronic abdominal pain (Acute) BPH (benign prostatic hyperplasia) (Acute) Abdominal fullness in right upper quadrant (Acute) Myofascial pain (Acute) Past Medical History Medical History Allergic rhinitis Anxiety BPH (benign prostatic hyperplasia) Chronic abdominal pain Chronic back pain Congenital cystic kidney disease Constipation Dyslipidemia GERD (gastroesophageal reflux disease) Hemorrhoids HTN (hypertension) Incisional pain Internal hemorrhoids with complication Metabolic syndrome DUNIA (obstructive sleep apnea) Overweight Surgical History Surgical History H/O abdominal surgery H/O colonoscopy H/O hemorrhoidectomy H/O hernia repair History of esophagogastroduodenoscopy (EGD) Social History Social History Household Members: None Alcohol intake: never Patient Tobacco Use Status: Never used Tobacco Second Hand Smoke Exposure: No Use of substances other than those prescribed or required for medical reasons: No Are you DNR?: No Advance Directives: No Advance Directives Information Provided: Yes Current occupational status: unemployed Meds Allergies Allergy/AdvReac Type Severity Reaction Status Date / Time No Known Allergies Allergy Verified 05/11/21 09:12 Home Medications Medication Instructions Recorded Confirmed Last Taken Type clonazepam 1 mg tablet 1 tab PO BID 09/10/21 09/10/21 Unknown History lisinopril 20 mg tablet 1 tab PO DAILY 09/10/21 09/10/21 12/17/21 07:00 History metoprolol succinate 100 mg 1 tab PO DAILY 09/10/21 09/10/21 Unknown History tablet,extended release 24 hr nortriptyline 10 mg capsule 1 cap PO BEDTIME 09/10/21 09/10/21 Unknown History omeprazole 40 mg capsule,delayed 1 cap PO DAILY 09/10/21 09/10/21 Unknown History release oxybutynin chloride 5 mg tablet 1 tab PO BEDTIME 09/10/21 09/10/21 Unknown History pravastatin 40 mg tablet 1 tab PO BEDTIME 09/10/21 09/10/21 Unknown History quetiapine 100 mg tablet 1 tab PO BEDTIME 09/10/21 09/10/21 Unknown History Exam Exam Date and Time: December 16, [id number] Pertinent Lab Results Pertinent Lab Results: Laboratory Tests 09/10/21 09/10/21 23:15 23:15 WBC 12.9 H Hgb 17.0 Hct 51.1 Plt Count 202 Sodium 141 Potassium 3.8 Chloride 106 Carbon Dioxide 24 BUN 17 H Creatinine 1.07 Assessment and Plan Assessment Anesthesia Assessment: Chart Reviewed Documented by User: Ivett Marrero MD 12/17/21 08:55 PMFSH Past Medical History Medical History Allergic rhinitis Anxiety BPH (benign prostatic hyperplasia) Chronic abdominal pain Chronic back pain Congenital cystic kidney disease Constipation Dyslipidemia GERD (gastroesophageal reflux disease) Hemorrhoids HTN (hypertension) Incisional pain Internal hemorrhoids with complication Metabolic syndrome DUNIA (obstructive sleep apnea) Overweight Functional capacity: independent ambulation Family History Family history of problems with anesthesia: No Surgical History Surgical History H/O abdominal surgery H/O colonoscopy H/O hemorrhoidectomy H/O hernia repair History of esophagogastroduodenoscopy (EGD) History of Problems with Anesthesia: No Social History Social History Household Members: None Alcohol intake: never Patient Tobacco Use Status: Never used Tobacco Second Hand Smoke Exposure: No Use of substances other than those prescribed or required for medical reasons: No Are you DNR?: No Advance Directives: No Advance Directives Information Provided: Yes Current occupational status: unemployed Meds Allergies Allergy/AdvReac Type Severity Reaction Status Date / Time No Known Allergies Allergy Verified 05/11/21 09:12 Home Medications Medication Instructions Recorded Confirmed Last Taken Type clonazepam 1 mg tablet 1 tab PO BID 09/10/21 09/10/21 Unknown History lisinopril 20 mg tablet 1 tab PO DAILY 09/10/21 09/10/21 12/17/21 07:00 History metoprolol succinate 100 mg 1 tab PO DAILY 09/10/21 09/10/21 Unknown History tablet,extended release 24 hr nortriptyline 10 mg capsule 1 cap PO BEDTIME 09/10/21 09/10/21 Unknown History omeprazole 40 mg capsule,delayed 1 cap PO DAILY 09/10/21 09/10/21 Unknown History release oxybutynin chloride 5 mg tablet 1 tab PO BEDTIME 09/10/21 09/10/21 Unknown History pravastatin 40 mg tablet 1 tab PO BEDTIME 09/10/21 09/10/21 Unknown History quetiapine 100 mg tablet 1 tab PO BEDTIME 09/10/21 09/10/21 Unknown History Exam Airway Mallampati Class: III TM Dist: >3cm Neck ROM: Full Heart: RRR Lungs: CTA Assessment and Plan Final Anesthetic Review Family History of Problems with Anesthesia: No History of Problems with Anesthesia: No NPO: Yes ASA Class: II Final Preanesthetic Review: No Changes in Pt Med Stat, Meds/Allgs Chart Reviewed, Consent Obtained/Reviewed and Anes Risks/Benef Reviewed Patient Risk: Low Procedure Risk: Low Anesthetic Plan Anesthetic Plan: MAC: Disposition: Standard PACU
[2021-12-17] MEDS: Lactated Ringers 1,000 ML 100 ML IVCONT (07:47)
[2021-12-17 07:52] VITALS: BMI 31.6
[2021-12-17 07:57] VITALS: BP 120/88; PULSE 74; RESP 16; TEMP 35.9; O2SAT 98
--- NOTE | 2021-12-17 08:30 | MHC.SHP ---
Pre-Procedural Eval Section A Date of Service: 12/17/21 Section B Chief Complaint: Constipation,hx of barretts and abdominal pain Relevant Family History (Specify if Yes): No Relevant Social History: None Present Medications: see Short Stay Collaborative assessment Medical History: Significant History (Allergic rhinitis Anxiety BPH (benign prostatic hyperplasia) Chronic abdominal pain Chronic back pain Congenital cystic kidney disease Constipation Dyslipidemia GERD (gastroesophageal reflux disease) Hemorrhoids HTN (hypertension) Incisional pain Internal hemorrhoids with complication Metabolic synd) History of Previous Operations: Relevant previous surgery/procedure and date(s) (H/O abdominal surgery H/O colonoscopy H/O hemorrhoidectomy H/O hernia repair History of esophagogastroduodenoscopy (EGD)) Allergies: Allergies Allergy/AdvReac Type Severity Reaction Status Date / Time No Known Allergies Allergy Verified 05/11/21 09:12 Review of Systems Sugical H&P ROS: Negative: Constitution, Cardiovascular, Respiratory, Neurological, Psychiatric, Hem-Onc, Allergic/Immunologic, Gastrointestinal, Genitourinary, Musculoskeletal, Integumentary, Endocrine and Eyes/Ears/Nose/Throat Exam Surgical H&P Exam: Normal: HEENT, Normal: Heart, Normal: Lungs, Normal: Extremities, Normal: Abdomen, Normal: Skin and Normal: Neurological Plan Diagnosis/Plan: Unchanged I have reviewed the history and physical and performed a pertinent physical examination on my patient. No changes have occurred unless specified. EGD also being done due to hx of abdominal pain and barretts
--- NOTE | 2021-12-17 09:00 | W.PM.OPN ---
Operative Note Operative Note Date of Service: 12/17/21 Narrative: Operative Information Procedure Description: EGD, Colonoscopy Indication: abdominal pain, constipation, hx of barretts Anesthesia: MAC FLEXIBLE TRANSORAL UPPER GASTROINTESTINAL ENDOSCOPY AND COLONOSCOPY PROCEDURE NOTE UPPER ENDOSCOPY Consent: Indications for the procedure and potential complications of bleeding, perforation, reaction to medications and missed diagnosis were discussed with the patient and informed consent was obtained. Instrument: Olympus GIF H 190 J mid size upper endoscope Monitoring: Vital signs and clinical assessment, continuous EKG monitoring, Pulse oximetry, Carbon Dioxide monitoring and blood pressure monitoring were done throughout the procedure. Procedure: The patient was placed in the left lateral decubitis position and pre-procedure medications were administered and a bite block was placed. The endoscope was inserted into the mouth and advanced under direct vision to the third part of duodenum. A careful inspection was made as the upper endoscope was withdrawn including a retroflexed examination of the proximal stomach; Findings and interventions are described below. Findings: Larynx:normal Esophagus: GE junction at 35 cm, diaphragm hiatus at 37 cm, consistent with 2 xm sliding hiatal hernia, irregular Z line, bx taken Stomach: Streaky erythematous mucosa. Biopsies were obtained. Grade 3 flap valve on retroflexed examination of the cardia. The pyloric outlet was tight and scope was gently nudged into the duodenum. This was dilated to 20 mm with no tears seen. There was small mount of retained food noted consistent with gastroparesis. Duodenum: Normal bulb and descending duodenum, bx taken Intervention: Biopsies as noted above COLONOSCOPY Instrument: Olympus variable stiffness adult scope 190L Colonoscopy Monitoring: Vital signs and clinical assessment, continuous EKG monitoring, Pulse oximetry, Carbon Dioxide monitoring and blood pressure monitoring were done throughout the procedure. Colon withdrawal time was 10 minutes. Procedure: The patient was placed in the left lateral decubitis position and pre-procedure medications were administered. After a digital rectal examination of the ano-rectum, the video colonoscope was inserted into the rectum and advanced through the colon to the cecum/TI. The colonoscope was slowly withdrawn in a retrograde panoramic fashion and the colon mucosa was carefully examined including a retroflexed view of the rectum. Findings and interventions are described below. Procedure Difficulty:moderate Findings: Terminal Ileum-normal, bx taken Random colon bx taken Cecum: nodular appearance to mucosa Ascending Colon: nodularity, 4-5 mm sessile polyp removed with forceps Transverse Colon -normal Descending Colon:normal Sigmoid Colon: mild to mdoerate sized diverticulosis Rectum: Retroflexion with medium sized internal hemorrhoids, grade I Anorectum - normal Colon preparation: [place] Bowel Preparation Scale Right colon; 2 Transverse colon: 3 Left colon; 3 (0 = Unprepared colon segment with mucosa not seen due to solid stool that cannot be cleared. 1 = Portion of mucosa of the colon segment seen, but other areas of the colon segment not well seen due to staining, residual stool and/or opaque liquid. 2 = Minor amount of residual staining, small fragments of stool and/or opaque liquid, but mucosa of colon segment seen well. 3 = Entire mucosa of colon segment seen well with no residual staining, small fragments of stool or opaque liquid) Impression and Post Procedure Diagnosis: Endoscopy Findings: hiatal hernia lax LES gastritis tight pyloric outlet irregular z line Colonoscopy Findings: polyp internal hemorrhoids diverticular disease Plan: Await Pathology results Repeat Colonoscopy in 5 years if adenomatous polyp, 10 yrs if benign or earlier if clinically indicated High fiber diet leaflet avoid straining at stool, epsom salts and sitz bath, anusol supps or cream confirm PPI and nsaid hx gastroparesis diet Above findings were reviewed with the patient and relevant handouts were provided if indicated.
[2021-12-17 09:27] VITALS: BP 86/58; PULSE 69; RESP 18; TEMP 36.2; O2SAT 94
[2021-12-17 09:42] VITALS: BP 104/71; PULSE 74; RESP 20; TEMP 36.7; O2SAT 94
--- NOTE | 2021-12-17 09:51 | HO.POSTANES ---
Post Anesthesia Evaluation Post Anesthesia Evaluation Vital Signs: Vital Signs Temp Pulse Resp BP Pulse Ox O2 Del Method 12/17/21 09:42 98.1 F 74 20 104/71 94 Room Air 12/17/21 09:27 97.1 F 69 18 86/58 L 94 Room Air 12/17/21 07:57 96.7 F L 74 16 120/88 98 Room Air Anesthesia: Monitored Mental Status: Awake Pain Control: Satisfactory Nausea/Vomiting: None Hydration: Adequate Anesthesia-Related Issues: No Anes. Related Issues
[2021-12-17 09:56] VITALS: BP 105/60; PULSE 70; RESP 18; TEMP 36.6; O2SAT 95
== END 2021-12-17 10:16 ==
PROVIDERS: PCP Family Medicine; Visit Provider Internal Medicine Gastroenterology
PROC: (CPT 45380; principal; 2021-12-17 08:30)
DX: K59.00 Constipation, unspecified (principal); R10.9 Unspecified abdominal pain; G89.29 Other chronic pain; K63.5 Polyp of colon; K63.89 Other specified diseases of intestine; K57.30 Diverticulosis of large intestine without perforation or abscess without bleeding; K64.0 First degree hemorrhoids; K22.70 Barrett's esophagus without dysplasia; K31.84 Gastroparesis; K29.70 Gastritis, unspecified, without bleeding; K31.1 Adult hypertrophic pyloric stenosis; K44.9 Diaphragmatic hernia without obstruction or gangrene; K21.9 Gastro-esophageal reflux disease without esophagitis; I10 Essential (primary) hypertension; E78.5 Hyperlipidemia, unspecified; E88.81 Metabolic syndrome and other insulin resistance; M54.9 Dorsalgia, unspecified; G47.33 Obstructive sleep apnea (adult) (pediatric); Q61.9 Cystic kidney disease, unspecified; E66.3 Overweight; Z68.31 Body mass index [BMI] 31.0-31.9, adult; Z79.899 Other long term (current) drug therapy; Z98.890 Other specified postprocedural states
CPT/HCPCS: 45380; 43239; 88305; 88342; C1726

== ENCOUNTER → 2021-12-28 09:00 | Outpatient (BNVA) | payer OTHER, SELFPAY | PROVIDERS: PCP Family Medicine; Visit Provider Internal Medicine Gastroenterology | DX: K63.5 Polyp of colon (principal); K57.30 Diverticulosis of large intestine without perforation or abscess without bleeding; K64.8 Other hemorrhoids; K44.9 Diaphragmatic hernia without obstruction or gangrene; K29.70 Gastritis, unspecified, without bleeding; Z98.890 Other specified postprocedural states | CPT/HCPCS: 99212 ==

== ENCOUNTER → 2022-04-09 09:08 | Outpatient (BNVA) | payer OTHER, SELFPAY | PROVIDERS: PCP Family Medicine; Referring Provider Family Medicine; Visit Provider Internal Medicine Gastroenterology | DX: K21.9 Gastro-esophageal reflux disease without esophagitis (principal); R14.0 Abdominal distension (gaseous) | CPT/HCPCS: 99212 ==

== ENCOUNTER → 2022-08-06 08:40 | Outpatient (BNVA) | payer OTHER, SELFPAY | PROVIDERS: PCP Family Medicine; Referring Provider Family Medicine; Visit Provider Internal Medicine Gastroenterology | DX: K21.9 Gastro-esophageal reflux disease without esophagitis (principal); K59.01 Slow transit constipation; K31.89 Other diseases of stomach and duodenum | CPT/HCPCS: 99212 ==

== ENCOUNTER 2022-11-10 12:07 | Emergency (ER) | payer OTHER, SELFPAY ==
--- NOTE | ~2022-11-10 | CT_ITS ---
EXAMINATION: CT ABDOMEN AND PELVIS WITHOUT CONTRAST CLINICAL INFORMATION: Abdominal pain with flank pain/stone protocol COMPARISON: Ultrasound abdomen 12/15/[address] abdomen pelvis 10/10/2020 TECHNIQUE: Multidetector volumetric imaging was performed from the superior aspect of the liver through the pubic symphysis. Sagittal and coronal reformatted images were obtained on the technologist's workstation. This CT examination was performed using dose optimization techniques as appropriate, variously including the following: *Automated exposure control *Adjustment of mA and/or kV according to patient size (this includes techniques or standardized protocols for targeted exams where dose is matched to indication/reason for exam; i.e. extremities or head) *Use of iterative reconstruction technique DLP: 586 mGy-cm FINDINGS: LUNG BASES: The visualized lung bases are unremarkable. LIVER, GALLBLADDER, AND BILIARY TREE: The liver is normal in size, shape, and attenuation. No focal hepatic lesion or biliary ductal dilatation is present. The gallbladder is unremarkable with no evidence of radiopaque gallstones, gallbladder wall thickening, or obvious pericholecystic inflammatory changes. PANCREAS: Unremarkable. SPLEEN: Unremarkable. ADRENAL GLANDS: Unremarkable. KIDNEYS AND URETERS: The kidneys are normal in size, shape, and attenuation. An upper pole benign 3.7 cm Bosniak class I left renal cyst is present which needs no additional imaging or follow-up. No solid renal masses. No hydronephrosis, hydroureter, or calculi seen. No perinephric stranding. BLADDER: Unremarkable. GASTROINTESTINAL TRACT: The small and large bowel are unremarkable. The appendix is unremarkable. ABDOMINAL WALL: No significant hernia is appreciated. LYMPH NODES: Normal. VASCULAR: Unremarkable. PELVIC VISCERA: There is moderate BPH. Seminal vesicles appear normal OSSEOUS STRUCTURES: Mild degenerative changes are seen in the spine with osteophytes. CT/CT abdomen pelvis wo IV con IMPRESSION: 1. A cause for the patient's flank pain has not been found. There is no nephrolithiasis. 2. Incidental note made of BPH and benign Bosniak class I left renal cyst which needs no additional imaging or follow-up. Fleischner guidelines were followed.
[2022-11-10 12:32] VITALS: BP 132/76; PULSE 66; RESP 19; TEMP 36.6; O2SAT 98
--- NOTE | 2022-11-10 12:32 | ED_ITS ---
HPI - General Adult General Chief complaint: Abdominal Pain Stated complaint: abd pain Time Seen by Provider: 11/10/22 15:26 Source: patient Mode of arrival: ambulatory Limitations: no limitations History of Present Illness HPI narrative: 62 year old male presents to the ER with multiple complaints. He states he has acute on chronic abdominal pain and is urinating more than usual. He denies any injuries falls or lifting to lead to the pain. Patient denies fever chills cough. But states he is urinating more than usual. Related Data Home Medications Medication Instructions Recorded Confirmed clonazepam 1 mg tablet 1 tab PO BID 09/10/21 09/10/21 lisinopril 20 mg tablet 1 tab PO DAILY 09/10/21 09/10/21 metoprolol succinate 100 mg 1 tab PO DAILY 09/10/21 09/10/21 tablet,extended release 24 hr oxybutynin chloride 5 mg tablet 1 tab PO BEDTIME 09/10/21 09/10/21 pravastatin 40 mg tablet 1 tab PO BEDTIME 09/10/21 09/10/21 quetiapine 100 mg tablet 1 tab PO BEDTIME 09/10/21 09/10/21 lisinopril 30 mg tablet 30 mg PO DAILY 12/28/21 cholecalciferol (vitamin D3) 25 25 mcg PO DAILY 04/09/22 mcg (1,000 unit) capsule (Vitamin D3) hydroxyzine HCl 25 mg tablet 25 - 50 mg PO BEDTIME PRN insomnia 04/09/22 omeprazole 40 mg capsule,delayed 40 mg PO DAILY 04/09/22 release tamsulosin 0.4 mg capsule 0.4 mg PO DAILY 04/09/22 ramelteon 8 mg tablet 8 mg PO BEDTIME PRN insomnia 08/06/22 sildenafil 50 mg tablet (Viagra) 50 mg PO DAILY PRN 08/06/22 Previous Rx's Medication Instructions Recorded esomeprazole magnesium 40 mg 40 mg PO DAILY #60 caps 12/17/21 capsule,delayed release nortriptyline 10 mg capsule 10 mg PO BEDTIME #30 caps 03/17/22 Bacillus coagulans 400 million 400 cell PO DAILY #60 tabs 04/09/22 cell chewable tablet (Digestive Advantage Probiotics-Prebiotic) bisacodyl 5 mg tablet,delayed 20 mg PO ONCE 1 day #4 tabs 05/25/22 release (Dulcolax (bisacodyl)) polyethylene glycol 3350 17 gram 17 g PO BID #100 ea 05/25/22 oral powder packet (Miralax) bisacodyl 10 mg rectal suppository 10 mg [place] DAILY 3 days #3 ea 06/29/22 sennosides 8.6 mg tablet (Natural 17.2 mg PO DAILY 3 days #6 tabs 06/29/22 Senna Laxative) amoxicillin 500 mg-potassium 1 tab PO Q8H 2 weeks #42 tabs 10/25/22 clavulanate 125 mg tablet (Augmentin) Allergies Allergy/AdvReac Type Severity Reaction Status Date / Time No Known Allergies Allergy Verified 11/10/22 12:32 Review of Systems Review of Systems: Review of systems: General: Patient denies any fever chills recent illness or falls Musculoskeletal: back pain denies or body aches or other injuries HEENT: denies headache, runny nose, ear pain Respiratory: denies shortness of breath, cough Cardiovascular: no chest pain or palpitations : denies dysuria, frequency Abdomen: no nausea vomiting acute on chronic abdominal pain Extremities: no swelling, no pain Skin: no diaphoresis Yes all other systems are reviewed and are negative PMFSH Past Medical History Medical History Allergic rhinitis Anxiety BPH (benign prostatic hyperplasia) Chronic abdominal pain Chronic back pain Congenital cystic kidney disease Constipation Dyslipidemia GERD (gastroesophageal reflux disease) Hemorrhoids HTN (hypertension) Incisional pain Internal hemorrhoids with complication Metabolic syndrome DUNIA (obstructive sleep apnea) Overweight Surgical History H/O abdominal surgery H/O colonoscopy H/O hemorrhoidectomy H/O hernia repair History of esophagogastroduodenoscopy (EGD) Social History Social History Household Members: None Alcohol intake: never Patient Tobacco Use Status: Never used Tobacco Second Hand Smoke Exposure: No Advance Directives: No Advance Directives Information Provided: No Current occupational status: unemployed Physical Exam ED Vital Signs: Vital Signs - 24 hr 11/10/22 12:32 11/10/22 15:35 Temperature 98 F 98.1 F Pulse Rate 66 59 Respiratory Rate 19 16 Blood Pressure 132/76 130/86 Pulse Oximetry 98 98 Oxygen Delivery Method Room Air BMI result Body Mass Index 30.0 General: Well-appearing well-nourished in no signs of distress HEENT: Normocephalic atraumatic Neck: No signs of JVD, no masses no tenderness or lymphadenopathy Cardiovascular: Regular rate and rhythm Respiratory: Clear to auscultation bilaterally Abdomen: Soft nontender no masses No CVA tenderness Extremities: Normal pedal pulses no signs of edema Skin: Dry warm no rashes Back: No tenderness full ROM normal straight leg, normal reflexes good pedal pulses, femoral pulses. Course Course Course Narrative: RME- 62-year-old male past medical history schizophrenia sore hypertension, GERD, BPH, chronic abdominal pain presents for evaluation of right flank pain and frequent urination. Plan for labs, UA, imaging deferred to primary provider Reevaluation(s) Reevaluation #1: [id number] I explained the labs and CT. He is now feeling better with toradol. I will send home. Medications Administered Discontinued Medications Generic Name Dose Route Start Last Admin Trade Name Kevyn PRN Reason Stop Dose Admin Acetaminophen 650 mg 11/10/22 15:34 11/10/22 15:51 Acetaminophen 325 Mg Tablet PO 11/10/22 15:35 650 mg ONCE ONE Administration Ketorolac Tromethamine 15 mg 11/10/22 15:34 11/10/22 15:50 Ketorolac Tromethamine 30 Mg/Ml Vial IM 11/10/22 15:35 15 mg ONCE ONE Administration Medical Decision Making Medical Decision Making [facility] Narrative: Patient with no signs of UTI urine does not show any signs related to diabetes, this could be diverticulitis or his chronic pain. Very unlikely a kidney stone but I will send for CT non contrast. Differential Diagnosis Differential Diagnoses: The differential diagnosis associated with the presentation includes Diverticulitis, kidney stone, back strain, diabetes, UTI Admission/Observation Consideration of admission/observation: Escalation of care including admission/observation considered Lab Data [facility] Lab Attestation statement: I reviewed the patient's lab results. 11/10/22 13:47 11/10/22 13:47 Labs: Lab Results 11/10/22 11/10/22 11/10/22 Range/Units 13:47 13:47 13:47 WBC 7.9 (4.8-10.8) X10*3/uL RBC 5.44 (4.60-5.80) X10*6/uL Hgb 17.1 (14.0-18.0) g/dl Hct 50.5 (42.0-52.0) % MCV 92.8 (80.0-98.0) fL MCH 31.4 (27.0-33.0) pg MCHC 33.9 (31.0-36.0) g/dl RDW 12.1 (11.0-16.0) % Plt Count 183 (160-400) X10*3/uL MPV 11.8 (9.4-12.4) fL Immature Gran % (Auto) 0.4 (0.0-0.4) % Neut % (Auto) 50.4 (45-73) % Lymph % (Auto) 37.9 (20-40) % [place] % (Auto) 8.5 (2-11) % Eos % (Auto) 2.4 (0-4) % Baso % (Auto) 0.4 (0-2) % Lymph # (Auto) 3.0 (1.2-4.9) X10*3/uL [place] # (Auto) 0.7 (0.1-1.2) X10*3/uL Eos # (Auto) 0.2 (0.0-0.4) X10*3/uL Baso # (Auto) 0.0 (0.0-0.2) X10*3/uL Abs Immat Gran (auto) 0.03 (0.00-0.03) X10*3/uL Absolute Neuts (auto) 4.0 (2.0-8.3) x10*3/uL Absolute Nucleated RBC 0.000 (0.0-0.012) X10*3/uL Nucleated RBC % (auto) 0.0 (0.0-0.2) /100WBC Sodium 141 (135-145) mmol/L Potassium 4.3 (3.3-5.1) mmol/L Chloride 106 (96-108) mmol/L Carbon Dioxide 28 (22-29) mmol/L Anion Gap 11 L (12-20) BUN 9 (9-16) mg/dL Creatinine 0.94 (0.5-1.4) mg/dL Estim Creat Clear Calc 81.1 Estimated GFR > 60 Random Glucose 77 (60-115) mg/dL Calcium 9.4 (8.4-10.2) mg/dL Total Bilirubin 0.9 (0.0-1.0) mg/dL AST 24 (5-37) U/L ALT 32 (0-40) U/L Alkaline Phosphatase 61 (39-117) U/L Total Protein 7.2 (6.5-8.0) g/dL Albumin 4.0 (3.5-5.0) g/dL Lipase 19 (8-78) U/L Urine Color Yellow Urine Appearance Clear Urine pH 5.5 (5.0-9.0) Ur Specific [place] 1.015 (1.005-1.025) Urine Protein Negative (Neg-Trace) mg/dL Urine Glucose (UA) Negative (Negative) mg/dL Urine Ketones Negative (Negative) mg/dL Urine Blood Negative (Negative) Urine Nitrite Negative (Negative) Ur Leukocyte Esterase Small (1+) H (Negative) Urine RBC 0-2 (0-2) /HPF Urine WBC 0-5 (0-5) /HPF Ur Squamous Epith Cells 0-2 (0-2) /HPF Urine Bacteria None Seen (None Seen) Hyaline Casts 0-2 (0-2) /LPF Independent Interpretation I performed an independent interpretation of an: CT Scan External Record Review External record reviewed: Inpatient record Similiar presentation one year ago with negative workup. Discharge Plan Discharge Clinical Impression: Back pain, Abdominal pain Patient Disposition: Home, Self-Care Instructions: Abdominal Pain (ED), Back Pain (ED) Additional Instructions: You were seen today in the emergency department for back pain and abdominal pain You had a CT and labs which were all normal Please call to follow up with your doctor. Prescriptions: No Action nortriptyline 10 mg capsule 10 mg PO BEDTIME Qty: 30 3RF polyethylene glycol 3350 [Miralax] 17 gram powder in packet 17 g PO BID Qty: 100 0RF bisacodyl [Dulcolax (bisacodyl)] 5 mg tablet,delayed release (DR/EC) 20 mg PO ONCE 1 Days Qty: 4 0RF Rx Instructions: take at 6 pm day before colonoscopy sennosides [Natural Senna Laxative] 8.6 mg tablet 17.2 mg PO DAILY 3 Days Qty: 6 1RF bisacodyl 10 mg suppository 10 mg [place] DAILY 3 Days Qty: 3 0RF amoxicillin-pot clavulanate [Augmentin] 500-125 mg tablet 1 tab PO Q8H 14 Days Qty: 42 0RF esomeprazole magnesium 40 mg capsule,delayed release(DR/EC) 40 mg PO DAILY Qty: 60 2RF metoprolol succinate 100 mg tablet extended release 24 hr 1 tab PO DAILY lisinopril 20 mg tablet 1 tab PO DAILY quetiapine 100 mg tablet 1 tab PO BEDTIME clonazepam 1 mg tablet 1 tab PO BID pravastatin 40 mg tablet 1 tab PO BEDTIME oxybutynin chloride 5 mg tablet 1 tab PO BEDTIME tamsulosin 0.4 mg capsule 0.4 mg PO DAILY cholecalciferol (vitamin D3) [Vitamin D3] 25 mcg (1,000 unit) capsule 25 mcg PO DAILY hydroxyzine HCl 25 mg tablet 25 - 50 mg PO BEDTIME PRN (Reason: insomnia) omeprazole 40 mg capsule,delayed release(DR/EC) 40 mg PO DAILY Digestive Advantage Probio-Pre 400 million cell tablet,chewable 400 cell PO DAILY Qty: 60 2RF sildenafil [Viagra] 50 mg tablet 50 mg PO DAILY PRN ramelteon 8 mg tablet 8 mg PO BEDTIME PRN (Reason: insomnia) lisinopril 30 mg tablet 30 mg PO DAILY
[2022-11-10 14:12] LABS: MANUAL DIFF FLAG NO
[2022-11-10 14:14] LABS: Appearance Urine Clear; Basophils Percent Auto 0.4 % (0-2); Color Urine Yellow; Eosinophils Absolute Auto 0.2 X10*3/uL (0.0-0.4); Eosinophils Percent Auto 2.4 % (0-4); Glucose Urine UA Negative (Negative); Hematocrit 50.5 % (42.0-52.0); Hemoglobin 17.1 g/dl (14.0-18.0); Imm Gran Abs Auto 0.03 X10*3/uL (0.00-0.03); Imm Gran Pct Auto 0.4 % (0.0-0.4); Leukocyte Esterase Urine Small (1+) (Negative); Lymphocytes Percent Auto 37.9 % (20-40); Mean Corpuscular HGB Conc 33.9 g/dl (31.0-36.0); Mean Corpuscular Hemoglobin 31.4 pg (27.0-33.0); Mean Corpuscular Volume 92.8 fL (80.0-98.0); Mean Platelet Volume 11.8 fL (9.4-12.4); Monocytes Absolute Auto 0.7 X10*3/uL (0.1-1.2); Monocytes Percent Auto 8.5 % (2-11); Neutrophils Percent Auto 50.4 % (45-73); Nitrite Urine Negative (Negative); PH 5.5 (5.0-9.0); Platelet Count 183 X10*3/uL (160-400); Red Blood Count 5.44 X10*6/uL (4.60-5.80); Red Cell Distribution Width 12.1 % (11.0-16.0); Specific Gravity - Urine 1.015 (1.005-1.025); UMIC TRIGGER UACC YES; Urine Blood Negative (Negative); Urine Ketones Negative (Negative); Urine Protein Negative (Neg-Trace); White Blood Count 7.9 X10*3/uL (4.8-10.8)
[2022-11-10 14:24] LABS: Bacteria Urine None Seen (None Seen); Hyaline Casts Urine 0-2 /LPF (0-2); RBC Urine 0-2 /HPF (0-2); Squamous Epithelial Cell Urine 0-2 /HPF (0-2); UACC Culture Trigger YES; WBC Urine 0-5 /HPF (0-5)
[2022-11-10 14:28] LABS: Alanine Aminotransferase 32 U/L (0-40); Alkaline Phosphatase 61 U/L (39-117); Anion Gap 11 (12-20); Aspartate Amino Transferase 24 U/L (5-37); Bilirubin Total 0.9 mg/dL (0.0-1.0); Blood Urea Nitrogen 9 mg/dL (9-16); Calcium 9.4 mg/dL (8.4-10.2); Carbon Dioxide 28 mmol/L (22-29); Chloride 106 mmol/L (96-108); Creatinine Clr Calc Pharmacy 81.1; Estimated Glomerular Filt Rate > 60; Glucose Random 77 mg/dL (60-115); Lipase 19 U/L (8-78); Potassium 4.3 mmol/L (3.3-5.1); Sodium 141 mmol/L (135-145); Total Protein 7.2 g/dL (6.5-8.0)
[2022-11-10 15:35] VITALS: BP 130/86; PULSE 59; RESP 16; TEMP 36.7; O2SAT 98
[2022-11-10] MEDS: Ketorolac Tromethamine 30 MG/ML VIAL 15 MG IM (15:50)
[2022-11-10] MEDS: Acetaminophen 325 MG TABLET 650 MG PO (15:51)
[2022-11-10 17:32] VITALS: BP 131/87; PULSE 57; RESP 14; TEMP 36.7; O2SAT 97
== END 2022-11-10 18:27 | disposition home or self-care (01) ==
PROVIDERS: Physician Assistant; Emergency Provider Student in an Organized Health Care Education/Training Program; PCP Family Medicine
DX: R10.9 Unspecified abdominal pain (principal); I10 Essential (primary) hypertension; E78.5 Hyperlipidemia, unspecified; Z79.899 Other long term (current) drug therapy; Z79.02 Long term (current) use of antithrombotics/antiplatelets
CPT/HCPCS: 36415; 74176; 80053; 81001; 83690; 85025; 87086; 96372; 99283; 99284; J1885

== ENCOUNTER → 2022-12-23 14:28 | Outpatient (BNVA) | payer OTHER, SELFPAY | PROVIDERS: PCP Family Medicine; Referring Provider Family Medicine; Visit Provider Surgery | DX: R10.9 Unspecified abdominal pain (principal) | CPT/HCPCS: 99212 ==

== ENCOUNTER 2022-12-23 14:29 | Outpatient (AMB) | payer OTHER, SELFPAY ==
[2022-12-23 14:50] VITALS: BP 123/78; PULSE 68; BMI 32.6
--- NOTE | 2022-12-23 14:50 | MHC.OFFVIS ---
Intake Vital Signs 12/23/22 14:50 Height 5 ft 5 in Weight 196 lb BMI 32.6 BP 123/78 Blood Pressure Location Rt brachial Position Sitting Pulse 68 Intake Visit Reasons: Hernia Intake Note: This patient presents for an assessment for a possible hernia. Patient c/o; I feel something there and it is bothering me , describes burning sensation, bulge. 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 Name: Nataly Accompanied by: Other Relationship Allergies No Known Allergies Allergy (Verified 12/23/22 15:01) Medication List - Last Reconciled 12/23/22 by Ryan Davenport MD amoxicillin-pot clavulanate 500-125 mg (Augmentin) 1 tab PO Q8H 2 weeks Bacillus coagulans (Digestive Advantage Probiotics-Prebiotic) 400 cells (0 x 400 million cell) PO DAILY bisacodyl 10 mg DC DAILY 3 days bisacodyl (Dulcolax (bisacodyl)) 20 mg (4 x 5 mg) PO ONCE 1 day cholecalciferol (vitamin D3) (Vitamin D3) 25 mcg PO DAILY clonazepam 1 tab PO BID esomeprazole magnesium 40 mg PO DAILY hydroxyzine HCl 25 - 50 mg PO BEDTIME PRN lisinopril 1 tab PO DAILY lisinopril 30 mg PO DAILY metoprolol succinate ER 1 tab PO DAILY nortriptyline 10 mg PO BEDTIME omeprazole 40 mg PO DAILY oxybutynin chloride 1 tab PO BEDTIME polyethylene glycol 3350 (Miralax) 17 grams PO BID pravastatin 1 tab PO BEDTIME quetiapine 1 tab PO BEDTIME ramelteon 8 mg PO BEDTIME PRN sennosides (Natural Senna Laxative) 17.2 mg (2 x 8.6 mg) PO DAILY 3 days sildenafil (Viagra) 50 mg PO DAILY PRN tamsulosin 0.4 mg PO DAILY HPI Hernia HPI Details He is here because of persistent pain on the was excision site on a lipoma on the right upper outer quadrant in the past. He says that he continues to have this burning sensation on the area. He is worried that he has a hernia on the area. I had seen him in 2020 for the same problem. I had done a CAT scan and this did not reveal any hernia or any pathology. He is frustrated because he says that this burning pain causes him to be dizzy often times. He otherwise has good oral intake. He really denies a palpable mass on the previous excision site although he says that this feels like this is ?swollen? frequently. [facility] Medical History Abdominal wall pain Allergic rhinitis Anxiety BPH (benign prostatic hyperplasia) Chronic abdominal pain Chronic back pain Congenital cystic kidney disease Constipation Dyslipidemia GERD (gastroesophageal reflux disease) Hemorrhoids HTN (hypertension) Incisional pain Internal hemorrhoids with complication Metabolic syndrome DUNIA (obstructive sleep apnea) Overweight Surgical History H/O abdominal surgery H/O colonoscopy H/O hemorrhoidectomy H/O hernia repair History of esophagogastroduodenoscopy (EGD) Social History Household Members: None Alcohol intake: never Patient Tobacco Use Status: Never used Tobacco Second Hand Smoke Exposure: No Current occupational status: unemployed Review of Systems Const Denies chills and Denies fever(s) Card Denies chest pain, Denies dyspnea and Denies dyspnea on exertion Resp Denies cough, Denies dyspnea and Denies dyspnea on exertion GI Denies hematochezia and Denies change in bowel habits Denies hematuria and Denies difficulty urinating Musc Denies back pain and Denies limited range of motion Neuro Denies focal weakness and Denies convulsions Psych Denies depression and Denies mood swings Physical Exam Vital Signs: Last Vital Signs Pulse 68 12/23/22 14:50 BP 123/78 12/23/22 14:50 BMI result Body Mass Index 32.6 Const Other: Anxious looking General: comfortable and no acute distress Resp Effort & Inspection: normal respiratory effort Cardio Rate: regular rate GI Other: Large transverse scar on the right upper quadrant, no palpable mass, no palpable hernia even with Valsalva maneuvers Palpation (GI): Soft to palpation, not firm, nontender and no guarding Assessment & Plan Assessment & Plan (1) Abdominal wall pain: Code(s): R10.9 - Unspecified abdominal pain Plan: He describes pain on the previous incision site from his lipoma on the right upper quadrant. He is very frustrated about this because of the persistent pain. I am going to reorder for a follow-up CT scan. I am going to see him in the office thereafter. I did tell him that at this time, a\I do not feel any hernia even with Valsalva maneuvers. There are no palpable masses on the area. Orders: Orders CT abdomen pelvis wo IV con Today R10.9 - Unspecified abdominal pain Coding Level of Care Code Est Pt Level 3 (63911) Diagnoses Abdominal wall pain R10.9
== END 2022-12-23 15:17 | disposition home or self-care (01) ==
PROVIDERS: PCP Family Medicine; Referring Provider Family Medicine; Visit Provider Surgery
DX: R10.9 Unspecified abdominal pain (principal)
CPT/HCPCS: 99213

== ENCOUNTER 2023-01-28 09:53 | Outpatient (REF) | payer OTHER, SELFPAY ==
--- NOTE | ~2023-01-28 | CT_ITS ---
EXAMINATION: CT ABDOMEN AND PELVIS WITHOUT CONTRAST CLINICAL INFORMATION: Abdominal pain. COMPARISON: None available. TECHNIQUE: Multidetector volumetric imaging was performed from the superior aspect of the liver through the pubic symphysis. Sagittal and coronal reformatted images were obtained on the technologist's workstation. This CT examination was performed using dose optimization techniques as appropriate, variously including the following: *Automated exposure control *Adjustment of mA and/or kV according to patient size (this includes techniques or standardized protocols for targeted exams where dose is matched to indication/reason for exam; i.e. extremities or head) *Use of iterative reconstruction technique DLP: 493 mGy-cm FINDINGS: LUNG BASES: The visualized lung bases are unremarkable. LIVER, GALLBLADDER, AND BILIARY TREE: The liver is normal in size, shape, and attenuation. No focal hepatic lesion or biliary ductal dilatation is present. The gallbladder is unremarkable with no evidence of radiopaque gallstones, gallbladder wall thickening, or obvious pericholecystic inflammatory changes. PANCREAS: Unremarkable. SPLEEN: Unremarkable. ADRENAL GLANDS: Unremarkable. KIDNEYS AND URETERS: The kidneys are normal in size, shape, and attenuation. No hydronephrosis, hydroureter, or calculi seen. No perinephric stranding. There is a 3.7 cm cyst upper pole left kidney. BLADDER: Unremarkable. GASTROINTESTINAL TRACT: The small and large bowel are unremarkable. There is retained stool throughout. The appendix is unremarkable. ABDOMINAL WALL: No significant hernia is appreciated. LYMPH NODES: Normal. VASCULAR: Unremarkable. PELVIC VISCERA: The prostate gland measures 6 x 5.5 x 6.5 cm. OSSEOUS STRUCTURES: Unremarkable. CT/CT abdomen pelvis wo IV con IMPRESSION: No acute intra-abdominal process. Prostate gland hypertrophy. Retained stool. Fleischner guidelines were followed.
== END 2023-01-28 09:54 | disposition home or self-care (01) ==
LOC: HO.CT 09:53
PROVIDERS: PCP Family Medicine; Visit Provider Surgery
DX: R10.9 Unspecified abdominal pain (principal)
CPT/HCPCS: 74176

== ENCOUNTER 2023-02-09 09:31 | Outpatient (AMB) | payer OTHER, SELFPAY ==
[2023-02-09 09:32] VITALS: BP 129/83; PULSE 64; BMI 32.3
--- NOTE | 2023-02-09 09:32 | MHC.OFFVIS ---
Intake Vital Signs 02/09/23 09:32 Height 5 ft 5 in Weight 194 lb BMI 32.3 BP 129/83 Blood Pressure Location Rt brachial Position Sitting Pulse 64 Intake Visit Reasons: Abdominal pain, CT results Intake Note: This patient presents for a follow-up assessment for Ct-Scan results for abdominal pain. Patient c/o; reports no changes at this time. Electric Meter Inspector Required: Yes Electric Meter Inspector Language: Printed Circuit Board Reworker Name: Veronica Information Interpreted: non-clinical & clinical Accompanied by: Self / Same As Patient Allergies No Known Allergies Allergy (Verified 02/09/23 09:33) Medication List - Last Reconciled 02/09/23 by Ryan Davenport MD amoxicillin-pot clavulanate 500-125 mg (Augmentin) 1 tab PO Q8H 2 weeks Bacillus coagulans (Digestive Advantage Probiotics-Prebiotic) 400 cells (0 x 400 million cell) PO DAILY bisacodyl 10 mg ND DAILY 3 days bisacodyl (Dulcolax (bisacodyl)) 20 mg (4 x 5 mg) PO ONCE 1 day cholecalciferol (vitamin D3) (Vitamin D3) 25 mcg PO DAILY clonazepam 1 tab PO BID esomeprazole magnesium 40 mg PO DAILY hydroxyzine HCl 25 - 50 mg PO BEDTIME PRN lisinopril 1 tab PO DAILY lisinopril 30 mg PO DAILY metoprolol succinate ER 1 tab PO DAILY nortriptyline 10 mg PO BEDTIME omeprazole 40 mg PO DAILY oxybutynin chloride 1 tab PO BEDTIME polyethylene glycol 3350 (Miralax) 17 grams PO BID pravastatin 1 tab PO BEDTIME quetiapine 1 tab PO BEDTIME ramelteon 8 mg PO BEDTIME PRN sennosides (Natural Senna Laxative) 17.2 mg (2 x 8.6 mg) PO DAILY 3 days sildenafil (Viagra) 50 mg PO DAILY PRN tamsulosin 0.4 mg PO DAILY HPI Abdominal pain, CT results HPI Details He is here for follow-up because of his complaints of pain on an old excision site for a lipoma on the right side of his abdomen. I had sent him for a CT scan because of his persistent complaints of pain and his worries of a hernia on the area. He is here to discuss the CT scan report. [facility] Medical History Abdominal wall pain Allergic rhinitis Anxiety BPH (benign prostatic hyperplasia) Chronic abdominal pain Chronic back pain Congenital cystic kidney disease Constipation Dyslipidemia GERD (gastroesophageal reflux disease) Hemorrhoids HTN (hypertension) Incisional pain Internal hemorrhoids with complication Metabolic syndrome DUNIA (obstructive sleep apnea) Overweight Surgical History H/O abdominal surgery H/O colonoscopy H/O hemorrhoidectomy H/O hernia repair History of esophagogastroduodenoscopy (EGD) Social History Household Members: None Alcohol intake: never Patient Tobacco Use Status: Never used Tobacco Second Hand Smoke Exposure: No Current occupational status: unemployed Review of Systems Const Denies chills and Denies fever(s) Card Denies chest pain, Denies dyspnea and Denies dyspnea on exertion Resp Denies cough, Denies dyspnea and Denies dyspnea on exertion GI Denies hematochezia and Denies change in bowel habits Denies hematuria and Denies difficulty urinating Musc Denies back pain and Denies limited range of motion Neuro Denies focal weakness and Denies convulsions Psych Denies depression and Denies mood swings Physical Exam Const General: comfortable and no acute distress Orientation/consciousness: patient oriented x3 Neck Neck: Yes no lymphadenopathy Resp Auscultation: clear to auscultation bilaterally Cardio Rhythm: regular rhythm GI Other: No palpable hernia on the old excision site on the right side of the abdomen, no masses Palpation (GI): Soft to palpation, nontender and no guarding Neuro General: patient oriented x3 Assessment & Plan Assessment & Plan (1) Incisional pain: Code(s): L76.82 - Other postprocedural complications of skin and subcutaneous tissue Plan: I have reviewed his CAT scan and this does not suggest any hernia on the old excision site on the right side of the abdomen. There is no signs of any recurrent lipoma either I explained the findings to him. There is no intra-abdominal pathology identified either. I assured him about the CT scan findings He feels much better and he will follow up with me on a p.r.n. basis. Coding Level of Care Code Est Pt Level 2 (58035) Diagnoses Incisional pain L76.82
== END 2023-02-09 09:46 | disposition home or self-care (01) ==
PROVIDERS: PCP Family Medicine; Visit Provider Surgery
DX: L76.82 Other postprocedural complications of skin and subcutaneous tissue (principal)
CPT/HCPCS: 99212

== ENCOUNTER → 2023-02-09 09:31 | Outpatient (BNVA) | payer OTHER, SELFPAY | PROVIDERS: PCP Family Medicine; Visit Provider Surgery | DX: L76.82 Other postprocedural complications of skin and subcutaneous tissue (principal) | CPT/HCPCS: 99212 ==

== ENCOUNTER 2023-06-17 10:25 | Outpatient (REF) | payer OTHER, SELFPAY ==
[2023-06-17 11:51] LABS: MANUAL DIFF FLAG NO
[2023-06-17 11:59] LABS: Basophils Percent Auto 0.3 % (0-2); Eosinophils Absolute Auto 0.2 X10*3/uL (0.0-0.4); Eosinophils Percent Auto 2.4 % (0-4); Hematocrit 54.7 % (42.0-52.0); Hemoglobin 17.8 g/dl (14.0-18.0); Imm Gran Abs Auto 0.02 X10*3/uL (0.00-0.03); Imm Gran Pct Auto 0.3 % (0.0-0.4); Lymphocytes Absolute Auto 2.6 X10*3/uL (1.2-4.9); Lymphocytes Percent Auto 35.2 % (20-40); Mean Corpuscular HGB Conc 32.5 g/dl (31.0-36.0); Mean Corpuscular Hemoglobin 30.5 pg (27.0-33.0); Mean Corpuscular Volume 93.8 fL (80.0-98.0); Mean Platelet Volume 12.5 fL (9.4-12.4); Monocytes Absolute Auto 0.6 X10*3/uL (0.1-1.2); Monocytes Percent Auto 8.2 % (2-11); Neutrophils Percent Auto 53.6 % (45-73); Platelet Count 180 X10*3/uL (160-400); Red Blood Count 5.83 X10*6/uL (4.60-5.80); Red Cell Distribution Width 12.4 % (11.0-16.0); White Blood Count 7.4 X10*3/uL (4.8-10.8)
[2023-06-17 12:42] LABS: Alanine Aminotransferase 28 U/L (0-40); Albumin Level 4.2 g/dL (3.5-5.0); Alkaline Phosphatase 57 U/L (39-117); Anion Gap 11 (12-20); Aspartate Amino Transferase 23 U/L (5-37); Blood Urea Nitrogen 15 mg/dL (9-16); Calcium 9.4 mg/dL (8.4-10.2); Carbon Dioxide 30 mmol/L (22-29); Chloride 105 mmol/L (96-108); Estimated Glomerular Filt Rate > 60; Glucose Random 88 mg/dL (60-115); Potassium 4.3 mmol/L (3.3-5.1); Sodium 142 mmol/L (135-145); Total Protein 7.8 g/dL (6.5-8.0)
[2023-06-17 13:01] LABS: TSH reflex Free T4 1.52 uIU/mL (0.32-4.0)
== END 2023-06-17 10:26 | disposition home or self-care (01) ==
LOC: HO.HHCL 10:25
PROVIDERS: Visit Provider Student in an Organized Health Care Education/Training Program
DX: R42 Dizziness and giddiness (principal)
CPT/HCPCS: 36415; 80053; 84443; 85025

== ENCOUNTER 2023-07-14 09:21 | Outpatient (REF) | payer OTHER, SELFPAY ==
[2023-07-14 12:03] LABS: Estimated Average Glucose 103 mg/dL; Hemoglobin A1c % 5.2 % (<6.0)
[2023-07-14 12:27] LABS: Alanine Aminotransferase 20 U/L (0-40); Albumin Level 3.8 g/dL (3.5-5.0); Alkaline Phosphatase 51 U/L (39-117); Anion Gap 9 (12-20); Aspartate Amino Transferase 20 U/L (5-37); Blood Urea Nitrogen 13 mg/dL (9-16); Calcium 9.2 mg/dL (8.4-10.2); Carbon Dioxide 28 mmol/L (22-29); Chloride 105 mmol/L (96-108); Cholesterol 183 mg/dL (<200); Estimated Glomerular Filt Rate > 60; Glucose Random 103 mg/dL (60-115); HDL Cholesterol 37 mg/dL (>40); LDL Cholesterol Calculated 129 mg/dL (<100); Potassium 4.4 mmol/L (3.3-5.1); Sodium 138 mmol/L (135-145); Total Protein 7.2 g/dL (6.5-8.0); Triglycerides 85 mg/dL (<150)
[2023-07-14 13:35] LABS: Reflex LDLD? No
== END 2023-07-14 09:22 | disposition home or self-care (01) ==
LOC: HO.HHCL 09:21
PROVIDERS: Visit Provider Family Medicine
DX: I10 Essential (primary) hypertension (principal)
CPT/HCPCS: 36415; 80053; 80061; 83036

== ENCOUNTER 2023-10-18 09:37 | Outpatient (REF) | payer OTHER, SELFPAY ==
[2023-10-18 11:37] LABS: MANUAL DIFF FLAG NO
[2023-10-18 11:45] LABS: Basophils Percent Auto 0.2 % (0-2); Eosinophils Absolute Auto 0.3 X10*3/uL (0.0-0.4); Eosinophils Percent Auto 3.9 % (0-4); Hematocrit 52.6 % (42.0-52.0); Hemoglobin 17.4 g/dl (14.0-18.0); Imm Gran Abs Auto 0.02 X10*3/uL (0.00-0.03); Imm Gran Pct Auto 0.3 % (0.0-0.4); Lymphocytes Absolute Auto 2.1 X10*3/uL (1.2-4.9); Mean Corpuscular HGB Conc 33.1 g/dl (31.0-36.0); Mean Corpuscular Hemoglobin 30.7 pg (27.0-33.0); Mean Corpuscular Volume 92.8 fL (80.0-98.0); Mean Platelet Volume 13.3 fL (9.4-12.4); Monocytes Absolute Auto 0.5 X10*3/uL (0.1-1.2); Monocytes Percent Auto 8.2 % (2-11); Neutrophils Absolute Auto 3.7 x10*3/uL (2.0-8.3); Neutrophils Percent Auto 55.4 % (45-73); Platelet Count 154 X10*3/uL (160-400); Red Blood Count 5.67 X10*6/uL (4.60-5.80); Red Cell Distribution Width 12.3 % (11.0-16.0); White Blood Count 6.6 X10*3/uL (4.8-10.8)
== END 2023-10-18 09:38 | disposition home or self-care (01) ==
LOC: HO.HHCL 09:37
PROVIDERS: Visit Provider Family Medicine
DX: D75.1 Secondary polycythemia (principal)
CPT/HCPCS: 36415; 85025

== ENCOUNTER 2024-02-22 11:34 | Outpatient (REF) | payer OTHER, SELFPAY | END 2024-02-22 11:35 | disposition home or self-care (01) | LOC: HO.HHCLNP 11:34 | PROVIDERS: Visit Provider Internal Medicine | DX: R39.9 Unspecified symptoms and signs involving the genitourinary system (principal) | CPT/HCPCS: 87086 ==

== ENCOUNTER 2024-07-06 08:45 | Outpatient (AMB) | payer OTHER, SELFPAY ==
[2024-07-06 08:52] VITALS: BP 136/60; PULSE 74; BMI 31.6
--- NOTE | 2024-07-06 08:52 | A.OFFVIS_ITS ---
Vital Signs 07/06/24 08:52 Height 5 ft 5 in Weight 190 lb BMI 31.6 BP 136/60 Blood Pressure Location Lt brachial Position Sitting Pulse 74 Intake Visit Reasons: Med follow up Intake Note: Luis Fernando presents in the office as a follow up to his medications. CC: States he has lots of bloating in his abdomen and he states when he eats his eyes become red. He is having constipation at times. Sneller Hand Required: Yes Sneller Hand Name: Carol Allergies No Known Allergies Allergy (Verified 07/06/24 08:53) HPI HPI Med follow up: Details: Electrician Sound used 64-year-old male being seen for f/u RECAP-[place] [facility] [place]/o RUQ pain- when he presses - saw Dr diamond for this, 2/2 excision of old lipoma, had imaging with seroma, no further action planned Constipation,he does not take anything on a regular basis- sees blood when he wipes-- He had a colonoscopy done in [facility] as below He felt inflammation in his stomach-and wanted medication to take away the inflammation. He is requesting pain medications so that he can not eat for a full week- Previously seen by Ms. Hunter-09/2018 Seen in ED for abdominal pain- 07/31/2019 and 01/2020 came back to ED 10/2020--for RUq pain, had w/u which was negative incl CT--only revealed enlarged prostate with calcification I gave him flagyl due to ongoing issues with bloating TESTS: Labs show a normal white count, slight decline in platelets, normal liver enzymes CT-07/31/2019--enlarged prstate, no masses CT 01/2020-- no acute findings US 01/2020--kidney cyst, nml liver, no masses GES 09/2020--rapid gastric emptying (report calls it as normal) endoscopies: Colonoscopy- 2011- Dr. Moreau Recommended 5 year follow-up due to inadequate prep. Colonoscopy 07/2017-[facility] Dr. Hercules Stool in the whole colon. Recommended stool softeners. Recommended a repeat colonoscopy in 1 year. 05/2018- EGD-with bx- Dr. Moreau--gastritis, mild to moderate, h pylori neg EGD 05/25--gastritis hiatal hernia possible barretts lax LES EGD/colonoscopy 12/2021- Endoscopy Findings: hiatal hernia lax LES gastritis tight pyloric outlet irregular z line Colonoscopy Findings: polyp internal hemorrhoids diverticular disease path: lymphoid aggregate other bx nml INTERIM: he was given augmentin for bloating in case of SIBO and it helped he feesl recently symptoms came back and he has blaoting again he takes miralax and home remedies for constipation and they help no blood in stool no nausea or vomiting appetite is good EXAM: GENERAL: The patient is well developed and nontoxic. VITAL SIGNS:see workflow HEENT: Nonicteric sclerae, PERRLA, EOMI. Oropharynx clear. Moist mucous membranes. Conjunctivae appear well perfused. No thyroid mass. CHEST: Chest wall is nontender. HEART: Regular rate and rhythm without murmurs. LUNGS: Clear to auscultation bilaterally. ABDOMEN: Soft, positive bowel sounds, nontender, no organomegaly.no flank tenderness SKIN: No rash, no excessive bruising, petechiae, or purpura. NEUROLOGIC: Cranial nerves II-XII intact without motor/sensory deficit. Psych-- normal Assessments 1. rapid gastric emptying--better 2. constipation, slow transit, maybe related to meds--controlled 3. GERD with lax LES--not an issue 4. bloating -2/2 sibo PLAN: 1/ cont with PPI 2/ cont with miralax 3/ trial of cephalexin and try probiotic after ABX course PFSH Medical History Abdominal wall pain Hemorrhoids Incisional pain Internal hemorrhoids with complication Dyslipidemia Congenital cystic kidney disease Chronic abdominal pain Allergic rhinitis Chronic back pain Constipation GERD (gastroesophageal reflux disease) Anxiety BPH (benign prostatic hyperplasia) HTN (hypertension) Metabolic syndrome Overweight DUNIA (obstructive sleep apnea) Surgical History H/O abdominal surgery History of esophagogastroduodenoscopy (EGD) H/O colonoscopy H/O hemorrhoidectomy H/O hernia repair Social History Household Members: None Alcohol intake: never Patient Tobacco Use Status: Never used Tobacco Second Hand Smoke Exposure: No Current occupational status: unemployed Physical Exam Vital Signs: Last Vital Signs Pulse 74 07/06/24 08:52 BP 136/60 07/06/24 08:52 BMI result Body Mass Index 31.6 Assessment & Plan Assessment & Plan (1) Small intestinal bacterial overgrowth (SIBO): Code(s): K63.8219 - Small intestinal bacterial overgrowth, unspecified Category: Medical Plan: as above Medications: New cephalexin 500 mg PO Q8H 42 caps 0RF Discontinued amoxicillin-pot clavulanate 500-125 mg (Augmentin) Discontinued Reason: Doctor's Order 1 tab PO Q8H 2 weeks 42 tabs 0RF Coding Level of Care Code Est Pt Level 3 (99024) Diagnoses Small intestinal bacterial overgrowth (SIBO) K63.8219
--- OUTSIDE RECORDS SUMMARY | 2024-07-06 09:02 | XMS_ITS | Encounter Summary ---
Author Organization [employer] Address [address] [facility] [address] [place] [address] Care Team Providers Care Rodbuster Name Role Phone Guerline Mckeon MD Primary Care Provider [phone] Reason for Visit * Reason Comments Med Refill Encounter Details Date Type Department Care Team ([facility] st Contact Info) Description 02/07/2024 Refill [facility] MEDICINE [address] [place], [place] [phone] Guerline Mckeon MD [address] [place], [place] [phone] Generalized anxiety disorder Social History Tobacco Use Types Packs/Day Years Used Date Smoking Tobacco: Never Passive Smoke Exposure: Never Smokeless Tobacco: Never Depression Answer Date Recorded Patient Health Questionnaire-9 Score 2 12/06/2022 Housing Stability Answer Date Recorded What is your housing situation today? I have dennys chavez 03/21/[address] you li ve. Do you have problems with any of the following? None of the above 03/21/2023 Food Insecurity Answer Date Recorded Within the past 12 months, y ou worried that your food would run out before you got money to buy more: Never True 03/21/2023 Within the past 12 months,th e food you bought just didn't last and you didn't have enough money to get more: Never True Transportation Answer Date Recorded In the past 12 months, has l ack of transportation kept you from medical appts, meetings, work or from getting things needed for daily living? No 03/21/2023 Utilities Answer Date Recorded In the past 12 months, has t he electric, gas, oil or water company threatened to shut off services in your home? No 03/21/2023 Depression Answer Date Recorded Patient Health Questionnaire-2 Score 1 12/06/2022 Sex and Gender Information Value Date Recorded Sex Assigned at Male 04/05/2022 10:15 AM EDT Legal Sex Male 10:15 AM EDT Gender Identity Male 04/05/2022 10:15 AM EDT Sexual Orientation Straight 04/05/2022 10 :15 AM EDT documented as of this encounter Plan of Treatment Not on file documented as of this encounter Visit Diagnoses Diagnosis Generalized anxiety disorder documented in this encounter Additional Health Concerns Assessment Noted Time PHQ-9 Depression Total Score: 2 12/07/19 23 9:58 AM EDT documented as of this encounter Care Teams Rodbuster Relationship Specialty Start Date End Date Guerline Mckeon MD [address] [place] [id number] PCP - General Family Medicine 06/06/18 documented as of this encounter
--- OUTSIDE RECORDS SUMMARY | 2024-07-06 09:02 | XMS_ITS | Encounter Summary ---
Author Organization [employer] Address [address] [facility] 7[address] [place] [address] Care Team Providers Care School Bus Driver/Mechanic Name Role Phone Guerline Mckeon MD Primary Care Provider [phone] Encounter Details Date Type Department Care Team (Late st Contact Info) Description 05/10/2022 Orders Only [facility] MEDICINE [address] [place], [place] [phone] Guerline Mckeon MD [address] [place], [place] [phone] Generalized anxiety disorder (Primary Dx) Social History Tobacco Use Types Packs/Day Years Used Date Smoking Tobacco: Never Assessed Sex and Gender Information Value Date Recorded Sex Assigned at Male 04/05/2022 10:15 AM EDT Legal Sex Male 10:15 AM EDT Gender Identity Male 04/05/2022 10:15 AM EDT Sexual Orientation Straight 04/05/2022 10 :15 AM EDT documented as of this encounter Plan of Treatment Not on file documented as of this encounter Visit Diagnoses Diagnosis Generalized anxiety disorder- Primary documented in this encounter Care Teams School Bus Driver/Mechanic Relationship Specialty Start Date End Date Guerline Mckeon MD [address] [place] [phone] PCP - General Family Medicine 06/06/18 documented as of this encounter
--- OUTSIDE RECORDS SUMMARY | 2024-07-06 09:02 | XMS_ITS | Encounter Summary ---
Author Organization [employer] Address [address] [facility] [address] [place] [address] Care Team Providers Care End Frazer Name Role Phone Guerline Mckeon MD Primary Care Provider [phone] Reason for Visit * Reason Comments Med Refill Encounter Details Date Type Department Care Team ([facility] st Contact Info) Description 07/29/2023 Refill [facility] MED & PEDS [address] [place], [place] [phone] Guerline Mckeon MD [address] [facility] [place], [place] [phone] Generalized anxiety disorder Social History Tobacco Use [...] documented as of this encounter Care Teams End Frazer Relationship Specialty Start Date End Date Guerline Mckeon MD [address] [place] [address] PCP - General Family Medicine 06/06/18 documented as of this encounter
--- OUTSIDE RECORDS SUMMARY | 2024-07-06 09:02 | XMS_ITS | Encounter Summary ---
Author Organization [employer] Address [address] [facility] [address] [place] [address] Care Team Providers Care Production Team Manager Name Role Phone Guerline Mckeon MD Primary Care Provider [phone] Reason for Visit * Reason Comments Med Refill Encounter Details Date Type Department Care Team ([facility] st Contact Info) Description 09/24/2022 Refill [facility] MEDICINE [address] [place] [address] Guerline Mckeon MD [address] [place] [address] Social History Tobacco Use Types Packs/Day Years Used Date Smoking Tobacco: Never Passive Smoke Exposure: Never Smokeless Tobacco: Never PHQ-2 Answer Date Recorded Patient Health Questionnaire-2 Score 1 09/08/2022 Sex and Gender Information Value Date Recorded Sex Assigned at Male 04/05/2022 10:15 AM EDT Legal Sex Male 10:15 AM EDT Gender Identity Male 04/05/2022 10:15 AM EDT Sexual Orientation Straight 04/05/2022 10 :15 AM EDT COVID-19 Exposure Response Date Recorded In the last 10 days, have yo u been in contact with someone who was confirmed or suspected to have Coronavirus/COVID-19? No / Unsure 09/08/2022 9:20 AM EDT documented as of this encounter Plan of Treatment Not on file documented as of this encounter Visit Diagnoses Not on filedocumented in this encounter Additional Health Concerns Assessment Noted Time PHQ-9 Depression Total Score: 5 09/09/19 9:50 AM EDT documented as of this encounter Care Teams Production Team Manager Relationship Specialty Start Date End Date Guerline Mckeon MD [address] [place] [address] PCP - General Family Medicine 06/06/18 documented as of this encounter
--- OUTSIDE RECORDS SUMMARY | 2024-07-06 09:02 | XMS_ITS | Encounter Summary ---
Author Organization [employer] Address [address] [facility] [address] [place] [address] Care Team Providers Care Ballet Soloist Name Role Phone Guerline Mckeon MD Primary Care Provider [phone] Reason for Visit * Reason Comments Med Refill Encounter Details Date Type Department Care Team ([facility] st Contact Info) Description 04/10/2023 Refill [facility] MEDICINE [address] [place], [place] [phone] Guerline Mckeon MD [address] [place], [place] [phone] Social History Tobacco Use Types Packs/Day Years [...] documented as of this encounter Care Teams Ballet Soloist Relationship Specialty Start Date End Date Guerline Mckeon MD [address] [place] [phone] PCP - General Family Medicine 06/06/18 documented as of this encounter
--- OUTSIDE RECORDS SUMMARY | 2024-07-06 09:02 | XMS_ITS | Encounter Summary ---
Author Organization [employer] Address [address] [facility] [address] [place] [address] Care Team Providers Care Swahili Teacher Name Role Phone Guerline Mckeon MD Primary Care Provider [phone] Reason for Visit * Reason Comments Med Refill Encounter Details Date Type Department Care Team ([facility] st Contact Info) Description 04/10/2023 Refill [facility] MEDICINE [address] [place], [place] [phone] Juju Flood MD [address] [place], [place] [phone] Social History Tobacco Use Types Packs/Day Years [...] documented as of this encounter Care Teams Swahili Teacher Relationship Specialty Start Date End Date Guerline Mckeon MD [address] [place] [id number] PCP - General Family Medicine 06/06/18 documented as of this encounter
--- OUTSIDE RECORDS SUMMARY | 2024-07-06 09:02 | XMS_ITS | Clinical Summary ---
Author Organization [employer] Address [address] [place] [address] Care Team Providers Care [employer] Name Role Phone Guerline Mckeon MD Primary Care Provider [phone] Allergies No known active allergies Medications * This document contains information received from the source organization and may not represent a complete record from that organization. ipratropium (Atrovent) 0.03 % nasal spray Administer 1 spray into affected nostril(s) every 12 (twelve) hours. 02/28/20 18 Active nortriptyline (Pamelor) 10 MG capsule Take 1 capsule by mouth at bedtime. Active omeprazole (PriLOSEC) [address] capsule Take 1 capsule by mouth before breakfast. Active polyvinyl alcohol (Liquifilm Tears) 1.4 % ophthalmic solution one drop in each eye 3 times a day for dryness 01/07/20 21 Active oxybutynin XL (Ditropan-XL) 5 MG 24 hr tablet Take 5 mg by mouth in the morning. 05/03/20 23 Active hydrOXYzine HCl (Atarax) 25 MG tablet Take 25 mg by mouth. 1-2 tablets by mouth at bedtime 09/05/19 24 Active Vitamin D High Potency 25 MCG (1000 UT) capsule TAKE 1 CAPSULE BY MOUTH EVERY DAY 90 capsule 3 11/01/19 24 Active metoprolol succinate XL (Toprol-XL) 100 MG 24 hr tablet TAKE 1 TABLET BY MOUTH EVERY DAY 90 tablet 3 11/01/19 24 Active pravastatin (Pravachol) 40 MG tablet TAKE 1 TABLET BY MOUTH AT BEDTIME 90 tablet 04/30/20 24 Active sildenafil (Viagra) 50 MG tabletIndicat ions:Generali zed anxiety disorder TAKE 1 TABLET 1 HOUR BEFORE SEXUAL RELATIONS ONCE DAILY NEEDED. 10 tablet 3 05/11/20 24 Active clonazePAM (KlonoPIN) 1 MG tabletIndicat ions:Generali zed anxiety disorder TAKE 1 TABLET BY MOUTH TWICE DAILY 56 tablet 4 05/29/20 24 Active lisinopril 30 MG tablet Take 1 tablet (30 mg) by mouth at bedtime. 90 tablet 3 06/05/20 24 Active psyllium (Reguloid) 28.3 % powder MIX 1 TABLESPOONFUL IN 8 OUNCES OF WATER OR JUICE AND DRINK BY MOUTH TWICE DAILY NEEDED FOR CONSTIPATION 369 g 3 06/14/19 25 Active tamsulosin (Flomax) 0.4 MG 24 hr capsule TAKE 1 CAPSULE EVERY MORNING 30 capsule 3 07/02/19 25 Active psyllium (Reguloid) 28.3 % powder MIX 1 TABLESPOONFUL IN 8 OUNCES OF WATER OR JUICE AND DRINK TWICE DAILY NEEDED FOR CONSTIPATION 369 g 3 10/04/19 24 025 Discontinued tamsulosin (Flomax) 0.4 MG 24 hr capsule TAKE 1 CAPSULE BY MOUTH EVERY MORNING 30 capsule 3 03/01/20 24 025 Discontinued Active Problems Problem Noted Date Diagnosed Date COVID-19 02/22/2024 Assessment & Plan (02/22/2024 1:14 PM EDT): Drink plenty of fluids and rest Acetaminophen PRN Patient declines paxlovid UTI symptoms 02/22/2024 Assessment & Plan (02/22/2024 1:15 PM EDT): UA and culture ordered, waiting for culture Frequency could be due to BPH I advise to f/u with urology No antibiotics for now until culture is back Erythrocytosis 10/17/2023 Vertigo 06/18/2023 Assessment & Plan (07/13/2023 9:58 AM EST): Symptoms described seems vertigo from description Adrian -Hallpike maneuver is neg for nystagmus but did caused some mild symptoms -meclizine prn -head postion exercises explained to pt -cbc,chem,TSH today -apt w PCP 07/13/2023 -has apt schedule already---if symptoms perisist may need to consdier further testing image testing -alarm signs ns symptoms discussed w pt Assessment & Plan (06/18/2023 4:59 PM EST): Symptoms described seems vertigo from description Adrian -Hallpike maneuver is neg for nystagmus but did caused some mild symptoms -meclizine prn -head postion exercises explained to pt -cbc,chem,TSH today -apt w PCP 07/13/2023 -has apt schedule already---if symptoms perisist may need to consdier further testing image testing -alarm signs ns symptoms discussed w pt Neurogenic bladder 03/13/2023 Assessment & Plan (10/17/2023 8:55 PM EDT): - following with [facility] urology - continue oxybutynin and nortriptyline Assessment & Plan (03/13/2023 6:08 AM EDT): - following with [facility] urology - continue oxybutynin and nortriptyline JONATHAN (generalized anxiety disorder) 12/06/2022 Assessment & Plan (10/18/2023 9:11 AM EDT): - continue judicious use of clonazepam - continue judicious use of hydroxyzine Assessment & Plan (03/13/2023 6:09 AM EDT): - continue judicious use of clonazepam - continue judicious use of hydroxyzine Assessment & Plan (12/06/2022 10:34 AM EDT): Patient has lifetime history of anxiety, previously managed by psychiatrist Dr. Vaughn who has retired. No red flags for BPD, no psychotic features. Has been stable on Clonazepam 1 mg BID plus Hydroxyzine 25 mg at bedtime without misuse. No contraindications to continuing current regimen. If PCP is agreeable to continuing to manage will defer to her. Otherwise F/U with me in 3 months. He agrees with the plan. Abdominal discomfort 09/08/2022 Assessment & Plan (06/15/2024 12:10 PM EST): -Since 1999, pt had lipoma removal which was complicated w/ seroma -S/P EGD on 05/06/2018: Small hiatal hernia w/ superificial gastritis; Neg H. Pylori -S/P EGD on 05/07/2020: hiatal hernia; gastritis -S/P umbilical hernia repair on 04/11/2018 -Abdominal CT in October 2020 showed enlarged prostate -Normal US in November 2020 -s/p EGD/Colonoscopy on 12/17/21; benign pathology and cont current treatement plan. -Pt was seen by [facility] for second opinion previously and was given reassurance that there is no surgical indication at this time. Recently started seeing [facility], last seen in Feb 2024. Scheduled for EGD in September 2024 -extensive evaluation and treatment provided by [facility], last seen in August 2022 -seen by Dr. Davenport in December 2020 and Feb 2023, evaluated for possible hernia by CT. No surgical issue. Given reassurance. -We discussed about his condition is chronic and will need to learn to live with this condition. -Informed that his recent CT did not suggest diverticulitis or any other reason for him to take antibiotic. Advised GI for further instruction. Assessment & Plan (10/17/2023 8:54 PM EDT): -Since 1999, pt had lipoma removal which was complicated w/ seroma -S/P EGD on 05/06/2018: Small hiatal hernia w/ superificial gastritis; Neg H. Pylori -S/P EGD on 05/07/2020: hiatal hernia; gastritis -S/P umbilical hernia repair on 04/11/2018 -Abdominal CT in October 2020 showed enlarged prostate -Normal US in November 2020 -s/p EGD/Colonoscopy on 12/17/21; benign pathology and cont current treatement plan. -Pt was seen by [facility] for second opinion previously and was given reassurance that there is no surgical indication at this time -extensive evaluation and treatment provided by [facility], last seen in August 2022 -seen by Dr. Davenport in December 2020 and Feb 2023, evaluated for possible hernia by CT. No surgical issue. Given reassurance. -We discussed about his condition is chronic and will need to learn to live with this condition. We informed him that we will continue to working towards improvement of his symptoms. Assessment & Plan (03/13/2023 6:02 AM EDT): -Since 1999, pt had lipoma removal which was complicated w/ seroma -S/P EGD on 05/06/2018: Small hiatal hernia w/ superificial gastritis; Neg H. Pylori -S/P EGD on 05/07/2020: hiatal hernia; gastritis -S/P umbilical hernia repair on 04/11/2018 -Abdominal CT in October 2020 showed enlarged prostate -Normal US in November 2020 -s/p EGD/Colonoscopy on 12/17/21; benign pathology and cont current treatement plan. -Pt was seen by [facility] for second opinion previously and was given reassurance that there is no surgical indication at this time -extensive evaluation and treatment provided by [facility], last seen in August 2022 -seen by Dr. Davenport in December 2020 and Feb 2023, evaluated for possible hernia by CT. No surgical issue. Given reassurance. -We discussed about his condition is chronic and will need to learn to live with this condition. We informed him that we will continue to working towards improvement of his symptoms. Assessment & Plan (09/20/2022 12:28 PM EDT): -Since 1999, pt had lipoma removal which was complicated w/ seroma -S/P EGD on 05/06/2018: Small hiatal hernia w/ superificial gastritis; Neg H. Pylori -S/P EGD on 05/07/2020: hiatal hernia; gastritis -S/P umbilical hernia repair on 04/11/2018 -Abdominal CT in October 2020 showed enlarged prostate -Normal US in November 2020 -s/p EGD/Colonoscopy on 12/17/21; benign pathology and cont current treatement plan. -Pt was seen by [facility] for second opinion previously and was given reassurance that there is no surgical indication at this time -seen by Dr. Davenport in December 2020 and given reassurance. -We discussed about his condition is chronic and will need to learn to live with this condition. We informed him that we will continue to working towards improvement of his symptoms. -f/u w/ GI as scheduled History of bladder stone 09/08/2022 Assessment & Plan (03/13/2023 6:05 AM EDT): - adequate hydration Panic disorder 09/08/2022 Assessment & Plan (10/18/2023 9:11 AM EDT): - continue judicious use of clonazepam Assessment & Plan (03/13/2023 6:07 AM EDT): - continue judicious use of clonazepam Other male erectile dysfunction 09/08/2022 Assessment & Plan (03/13/2023 6:05 AM EDT): - continue sildenafil; consider tadalafil - continue following with urolgoist Simple renal cyst 05/08/2015 Assessment & Plan (03/13/2023 6:04 AM EDT): - no follow-up imaging indicated Dyslipidemia 10/15/2014 Assessment & Plan (06/05/2024 12:35 PM EST): - current medication: Pravastatin 40 mg at bedtime - last lipid profile: 07/14/23, ASCVD risk 14.7%, moderate intensity statin therapy is recommended - continue working on lifestyle modifications Assessment & Plan (10/22/2023 6:18 AM EDT): - current medication: Pravastatin 40 mg at bedtime - last lipid profile: 07/14/23, ASCVD risk 14.7%, moderate intensity statin therapy is recommended - continue working on lifestyle modifications Assessment & Plan (03/13/2023 6:11 AM EDT): - current medication: Pravastatin 40 mg at bedtime - last lipid profile: 09/08/22 TC 193; TG 157; HDL 41; LDL 125 - continue working on lifestyle modifications 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 No medication for IBS at this time - his pain is mostly related to his past surgery Assessment & Plan (10/18/2023 9:29 AM EDT): - laxative for constipation - evaluated by GI and has tried several medications. No medication for IBS at this time - his pain is mostly related to his past surgery Assessment & Plan (03/13/2023 6:03 AM EDT): - laxative for constipation - evaluated by GI and has tried several medications. No medication for IBS at this time - his pain is mostly related to his past surgery Obstructive sleep apnea syndrome 04/03/2013 Assessment & Plan (06/05/2024 12:34 PM EST): -Sleep study: Initial study in Feb 2012 and CPAP titration in November 2012 -Continue CPAP, improve adherence Assessment & Plan (10/18/2023 9:10 AM EDT): -Sleep study: Initial study in Feb 2012 and CPAP titration in November 2012 -Continue CPAP, improve adherence Assessment & Plan (03/13/2023 5:59 AM EDT): -Sleep study: Initial study in Feb 2012 and CPAP titration in November 2012 -Continue CPAP, improve adherence Assessment & Plan (09/20/2022 12:23 PM EDT): -Sleep study: Initial study in Feb 2012 and CPAP titration in November 2012 -Continue CPAP, improve adherence Allergic rhinitis 03/16/2012 Assessment & Plan (03/13/2023 6:14 AM EDT): - prn treatment for symptomatic season Anxiety 03/16/2012 Assessment & Plan (06/05/2024 12:35 PM EST): -He had been seeing Dr. Vaughn (>10 years), who has retired. -He was being prescribed clonazepam and seroquel by Dr. Vaughn for > 10 years -Hx psych hospitalization in 2002. Dx major depression, panic disorder, bipolar disorder, mixed-type. At that time, GAF 30. -No longer taking Seroquel. -Continue taking clonazepam and hydroxyzine -Evaluated by [facility] for psych clinical pharmacology consult. Suggested that PCP continue prescribing medications. Appreciate for evaluation and recommendation. PCP will continue prescribing. Assessment & Plan (10/18/2023 9:10 AM EDT): -He had been seeing Dr. Vaughn (>10 years), who has retired. -He was being prescribed clonazepam and seroquel by Dr. Vaughn for > 10 years -Hx psych hospitalization in 2002. Dx major depression, panic disorder, bipolar disorder, mixed-type. At that time, GAF 30. -No longer taking Seroquel. -Continue taking clonazepam and hydroxyzine -Evaluated by [facility] for psych clinical pharmacology consult. Suggested that PCP continue prescribing medications. Appreciate for evaluation and recommendation. PCP will continue prescribing. Assessment & Plan (03/13/2023 6:14 AM EDT): -He had been seeing Dr. Vaughn (>10 years), who has retired. -He was being prescribed clonazepam and seroquel by Dr. Vaughn for > 10 years -Hx psych hospitalization in 2002. Dx major depression, panic disorder, bipolar disorder, mixed-type. At that time, GAF 30. -No longer taking Seroquel. -Continue taking clonazepam and hydroxyzine -Evaluated by [facility] for psych clinical pharmacology consult. Suggested that PCP continue prescribing medications. Appreciate for evaluation and recommendation. PCP will continue prescribing. Assessment & Plan (09/20/2022 12:25 PM EDT): -He had been seeing Dr. Vaughn (>10 years), who has retired. -He was being prescribed clonazepam and seroquel by Dr. Vaughn for > 10 years -Hx psych hospitalization in 2002. Dx major depression, panic disorder, bipolar disorder, mixed-type. At that time, GAF 30. -PCP agreed to prescribe his medications until he is transferred to his new psychiatrist. -No longer taking Seroquel. -Continue taking Clonazepam. -His previous N clinician has also left; will refer to internal [facility]. Benign prostatic hyperplasia 03/16/2012 Assessment & Plan (06/05/2024 12:34 PM EST): - following with [facility] urology - continue tamsulosin Assessment & Plan (10/17/2023 8:55 PM EDT): - following with [facility] urology - continue tamsulosin Assessment & Plan (03/13/2023 6:06 AM EDT): - following with [facility] - continue tamsulosin Chronic back pain 03/16/2012 Assessment & Plan (10/22/2023 6:23 AM EDT): - pt does not want to take many medications, especially oral medication - prescribed lidocaine patch, but patient self-discontinued Assessment & Plan (03/13/2023 6:12 AM EDT): - pt does not want to take many medications, especially oral medication - will prescribe lidoderm patch Constipation 03/16/2012 Assessment & Plan (10/18/2023 9:28 AM EDT): - continue fiber-rich diet Assessment & Plan (03/13/2023 6:04 AM EDT): - continue fiber-rich diet Gastroesophageal reflux disease 03/16/2012 Assessment & Plan (06/15/2024 12:10 PM EST): [place] [facility] last seen in August 2022 seen by [facility] in the past per pt's request for 2nd opinion Prescribed sucralfate 1 gram 4 times daily and pantoprazole 40 mg bid, by GI, but questionable adherence. Encouraged to follow-up with his GI before stopping medication. Improve adherence with CPAP. -s/p EGD/Colonoscopy on 12/17/21; benign pathology and cont current treatement plan. -f/u w/ GI as scheduled Assessment & Plan (10/18/2023 9:28 AM EDT): GI specialist: [facility], last seen in August 2022 seen by [facility] in the past per pt's request for 2nd opinion Prescribed sucralfate 1 gram 4 times daily and pantoprazole 40 mg bid, by GI, but questionable adherence. Encouraged to follow-up with his GI before stopping medication. Improve adherence with CPAP. -s/p EGD/Colonoscopy on 12/17/21; benign pathology and cont current treatement plan. -f/u w/ GI as scheduled Assessment & Plan (03/13/2023 6:04 AM EDT): GI specialist: [facility], last seen in August 2022 seen by [facility] in the past per pt's request for 2nd opinion Prescribed sucralfate 1 gram 4 times daily and pantoprazole 40 mg bid, by GI, but questionable adherence. Encouraged to follow-up with his GI before stopping medication. Improve adherence with CPAP. -s/p EGD/Colonoscopy on 12/17/21; benign pathology and cont current treatement plan. -f/u w/ GI as scheduled Assessment & Plan (09/20/2022 12:30 PM EDT): GI specialist: [facility], last seen in August 2022 seen by [facility] in the past per pt's request for 2nd opinion Prescribed sucralfate 1 gram 4 times daily and pantoprazole 40 mg bid, by GI, but questionable adherence. Encouraged to follow-up with his GI before stopping medication. Improve adherence with CPAP. -s/p EGD/Colonoscopy on 12/17/21; benign pathology and cont current treatement plan. -f/u w/ GI as scheduled Hypertension 03/16/2012 Assessment & Plan (06/05/2024 12:34 PM EST): - Goal BP <150/90 per JNC-8, < 130/80 per ACC/AHA guideline - Continue Lisinopril 30mg daily. - Continue Metoprolol Succinate 100mg daily. - Pt has BP monitor, unable to use. Advised to bring BP monitor at next visit so we can demonstrate how to use. - Continue working on lifestyle modifications. - Follow up in 3-6 mo or sooner if any problem arises Assessment & Plan (10/17/2023 8:54 PM EDT): - Goal BP <150/90 per JNC-8, < 130/80 per ACC/AHA guideline - Continue Lisinopril 30mg daily. - Continue Metoprolol Succinate 100mg daily. - Pt has BP monitor, unable to use. Advised to bring BP monitor at next visit so we can demonstrate how to use. - Continue working on lifestyle modifications. - Follow up in 3-6 mo or sooner if any problem arises Assessment & Plan (07/13/2023 9:59 AM EST): - Goal BP <150/90 per JNC-8, < 130/80 per ACC/AHA guideline - Continue Lisinopril 30mg daily. - Continue Metoprolol Succinate 100mg daily. - Pt has BP monitor, unable to use. Advised to bring BP monitor at next visit so we can demonstrate how to use. - Continue working on lifestyle modifications. - Follow up in 3-6 mo or sooner if any problem arises Assessment & Plan (03/13/2023 6:02 AM EDT): - Goal BP <150/90 per JNC-8, < 130/80 per ACC/AHA guideline - Continue Lisinopril 30mg daily. - Continue Metoprolol Succinate 100mg daily. - Pt has BP monitor, unable to use. Advised to bring BP monitor at next visit so we can demonstrate how to use. - Continue working on lifestyle modifications. - Follow up in 3-6 mo or sooner if any problem arises Assessment & Plan (09/20/2022 12:21 PM EDT): - Goal BP <150/90 per JNC-8, < 130/80 per ACC/AHA guideline - Continue Lisinopril 30mg daily. - Continue Metoprolol Succinate 100mg daily. - Pt has BP monitor, unable to use. Advised to bring BP monitor at next visit so we can demonstrate how to use. - Continue working on lifestyle modifications. - Follow up in 3-6 mo or sooner if any problem arises Obesity 03/16/2012 Resolved Problems Problem Noted Date Diagnosed Date Resolved Date Metabolic syndrome X 08/23/2013 024 Overweight 08/23/2013 02/07/2023 Encounters Date Type Department Care Team Description 07/01/2024 Refill [facility] [address] [place] [phone] Guerline Mckeon MD 06/14/2024 Refill [facility] [address] [place] [address] Guerline Mckeon MD 06/05/2024 11:30 AM EST Office Visit [facility] [address] [place] [address] Guerline Mckeon MD Primary hypertension (Primary Dx); Abdominal discomfort; Obstructive sleep apnea syndrome; Benign prostatic hyperplasia, unspecified whether lower urinary tract symptoms present; Dyslipidemia; Anxiety; Encounter for immunization; Dietary counseling; Exercise counseling; Class 1 obesity due to excess calories with serious comorbidity and body mass index (BMI) of 32.0 to 32.9 in adult; Irritable bowel syndrome, unspecified type; Gastroesophageal reflux disease, unspecified whether esophagitis present 06/05/2024 Travel 06/04/2024 Telephone [facility] [address] [place] [phone] Andreia Olivares MA chart prep 05/28/2024 Refill [facility] [address], [place] [phone] Guerline Mckeon MD Generalized anxiety disorder 05/10/2024 Refill [facility] [address], [place] [phone] Guerline Mckeon MD Generalized anxiety disorder 04/30/2024 Refill [facility] [address], [place] [phone] Guerline Mckeon MD from Last 3 Months Immunizations Name Administration Dates Next Due Influenza injectable quadriv alent IIV4 with preservative 02/27/2018,08/04/2017,03/29/2016,2014 Influenza injectable quadriv alent preservative free 03/07/2023,04/14/2022,05/04/2021,2019,03/29/2019 Influenza, IIV3, injectable 06/18/2014, 1,02/27/2010 Influenza, Split (incl. melba fied surface antigen) 04/03/2013,03/16/2012 Influenza, seasonal, injecta ble, preservative free 06/05/2024 Moderna Covid-19 Vaccine 12+ 12/23/2021, 06/24/2021,09/17/2020,2020 Pfizer Covid-19 Vaccine 12+ 03/07/2023 TD (adult), 2 Lf tetanus tox oid, preservative free, adsorbed 10/28/2020 Tdap 01/15/2010 Zoster, Recombinant 01/07/2021,11/05/2020 Social History Tobacco Use Types Packs/Day Years Used Date Smoking Tobacco: Never Passive Smoke Exposure: Never Smokeless Tobacco: Never Tobacco Cessation:Counseling Given: Not Answered Alcohol Use Standard Drinks/Week Comments Never 0 (1 standard drink = 0.6 oz pur e alcohol) Depression Answer Date Recorded Patient Health Questionnaire-9 [...] Orientation Straight 04/05/2022 10 :15 AM EDT Last Filed Vital Signs Vital Sign Reading Time Taken Comments Blood Pressure 130/95 06/05/2024 11:44 AM EST Pulse 75 06/05/2024 11:44 AM EST Temperature 36.2 ??C (97.1 ??F) 06/05/2024 11:[address] Respiratory Rate 20 06/05/2024 11:44 AM EST Oxygen Saturation 98% 06/05/2024 11:44 AM EST Inhaled Oxygen Concentration - - Weight 89.4 kg (197 lb) 06/05/2024 11:44 AM EST Height 165.1 cm (5' 5 ) 06/05/2024 11:44 AM EST Body Mass Index 32.78 06/05/2024 11:44 AM EST Plan of Treatment Health Maintenance Due Date Last Done Comments CT Colonography 1961 FIT DNA/Cologuard 1961 FIT 1961 FOBT 1961 Sigmoidoscopy 1961 Alcohol/Substance Use Screening 1973 Pneumococcal Vaccine: 50+ Years (1 of 1 - PCV) 2011 Depression Screening 12/07/2023 12/06/2022, 12/07/19 COVID-19 Vaccine ( season) 2024 03/07/2023, 12/23/2021, 06/24/2021, Additional history exists SDOH Screening 07/04/2024 07/04/2023 Tobacco Screening 06/05/2025 06/05/2024 Lipid Panel 07/14/2028 07/14/2023, 04/0 10/2022, 07/08/2021, Additional history exists DTaP/Tdap/Td Vaccines (3 - Td or Tdap) 10/28/2030 10/28/2020, 01/15/2010 Colonoscopy 12/18/2031 12/17/2021 Colorectal Cancer Screening 12/18/2031 RSV Patients and Patients Aged 60 years or older (1 - 1-dose 75+ series) 2036 Zoster Vaccines Completed 01/07/2021, 11/05/2020 Influenza Vaccine Completed 06/05/2024, , 04/14/2022, Additional history exists HIB Vaccines Aged Out No longer eligi ble based on patient's age to complete this topic HIV Screening Discontinued HPV Vaccines Aged Out No longer eligi ble based on patient's age to complete this topic Hepatitis A Vaccines Aged Out No long er eligible based on patient's age to complete this topic Hepatitis B Vaccines Aged Out No long er eligible based on patient's age to complete this topic Hepatitis C Screening Discontinued IPV Vaccines Aged Out No longer eligi ble based on patient's age to complete this topic Meningococcal Vaccine Aged Out No denton carlos eligible based on patient's age to complete this topic Pneumococcal Vaccine: Pediatrics (0 to 5 Years) and At-Risk Patients (6 to 49) Years) Aged Out No longer eligible based on patient's age to complete this topic RSV under 20 months Aged Out No longe r eligible based on patient's age to complete this topic Rotavirus Vaccines Aged Out No longer eligible based on patient's age to complete this topic Procedures Procedure Name Priority Date/Time Associated Diagnosis Comments LIPID PANEL WITH REFLEX TO DIRECT LDL Routine 07/14/2023 9:23 AM EST Primary hypertension HM COLONOSCOPY Routine 12/17/2021 from Last 3 Months or Most Recently Relevant to Health Maintenance Results * (ABNORMAL) Lipid Panel with Reflex to Direct LDL (07/14/2023 9:23 AM EST) Triglycerides 85 <150 mg/dL [facility] Comment:Desirable Triglyceri de: less than 150 mg/dLBorderline High Triglyceride 150-199 mg/dLHigh Triglyceride: 200-499 mg/dLVery High Triglyceride: greater than or equal to 5OO mg/dL Cholesterol 183 <200 mg/dL [facility] Comment:Desirable Cholestero l: less than 200 mg/dLBorderline High Cholesterol: 200-239 mg/dLHigh Cholesterol: greater than 239 mg/dL LDL Cholesterol Calculated 129(H) <100 mg/dL [facility] Comment:Desirable LDL: less than 100 mg/dLNear Optimal/Above Optimal LDL: 110- 129 mg/dLBorderline High LDL: 130-159 mg/dLHigh LDL: 160-189 mg/dLVery High LDL: greater than or equal to 190 mg/dL HDL Cholesterol 37(L) >40 mg/dL [facility] Comment:Desirable HDL: great er than 40 mg/dL Note: This HDL assay may give artificially low results in patients with liver disease. Blood 07/14/2023 9:23 AM EST 07/14/2023 11:18 AM EST us Guerline Mckeon MD LAB BLOOD ORDERABLES Final Resul t [facility] [address] [place] [address] [phone] * Colonoscopy (12/17/2021) Colonoscopy Normal Normal 12/17/2021 Historical Provider HEALTH MAINTENANCE Edited Result - Final from Last 3 Months or Most Recently Relevant to Health Maintenance Insurance [facility] CARE Care Teams Federal Air Marshal Relationship Specialty Start Date End Date Guerline Mckeon MD [address] [place] [id number] PCP - General Family Medicine 06/06/18
--- OUTSIDE RECORDS SUMMARY | 2024-07-06 09:02 | XMS_ITS | Encounter Summary ---
Author Organization [email or web address] Address [address] [facility] 7t [place] [address] Care Team Providers Care Engineer And Geologist Name Role Phone Guerline Mckeon MD Primary Care Provider [phone] Reason for Visit * Reason Comments Med Refill Encounter Details Date Type Department Care Team ([facility] st Contact Info) Description 07/01/[address] [facility] MEDICINE [address] [place], [place] [phone] Guerline Mckeon MD [address] [place], [place] [phone] Social History Tobacco Use Types Packs/Day Years Used Date Smoking Tobacco: Never Passive Smoke Exposure: Never Smokeless Tobacco: Never Alcohol Use Standard Drinks/Week Comments Never 0 [...] the past 12 months, has t he [employer] gas, oil or water company threatened to [...] documented as of this encounter Care Teams Engineer And Geologist Relationship Specialty Start Date End Date Guerline Mckeon MD [address] [place] [address] PCP - General Family Medicine 06/06/18 documented as of this encounter
--- OUTSIDE RECORDS SUMMARY | 2024-07-06 09:02 | XMS_ITS | Encounter Summary ---
Author Organization [employer] Address 75 [facility] 7t [place] [address] Care Team Providers Care Microbiology Supervisor Name Role Phone Guerline Mckeon MD Primary Care Provider [phone] Reason for Visit * Reason Comments Med Refill Encounter Details Date Type Department Care Team ([facility] st Contact Info) Description 06/14/2024 Refill [facility] MEDICINE [address] [place], [place] [phone] Guerline Mckeon MD [address] [place], [place] [phone] Social History Tobacco Use Types Packs/Day Years [...] the past 12 months, has t he [employer], gas, oil or water company threatened to [...] documented as of this encounter Care Teams Microbiology Supervisor Relationship Specialty Start Date End Date Guerline Mckeon MD [address] [place] [address] PCP - General Family Medicine 06/06/18 documented as of this encounter
--- OUTSIDE RECORDS SUMMARY | 2024-07-06 09:02 | XMS_ITS | Encounter Summary ---
Author Organization [employer] Address 75 [facility] 7t [place] [address] Care Team Providers Care Piano Teacher Name Role Phone Guerline Mckeon MD Primary Care Provider [phone] Reason for Visit * Reason Comments Med Refill Encounter Details Date Type Department Care Team ([facility] st Contact Info) Description 04/07/2023 Refill [facility] MEDICINE [address] [place] [address] Constantino Quintana FNP Generalized anxiety disorder Social History Tobacco Use [...] documented as of this encounter Care Teams Piano Teacher Relationship Specialty Start Date End Date Guerline Mckeon MD [address] [place] [address] PCP - General Family Medicine 06/06/18 documented as of this encounter
--- OUTSIDE RECORDS SUMMARY | 2024-07-06 09:02 | XMS_ITS | Encounter Summary ---
Author Organization [employer] Address 75 [facility] 7t [place] [address] Care Team Providers Care Composition Floor Setter Name Role Phone Guerline Mckeon MD Primary Care Provider [phone] Reason for Visit * Reason Comments Med Refill Encounter Details Date Type Department Care Team ([facility] st Contact Info) Description 03/28/[address] [facility] MEDICINE [address] [place] [address] Constantino Quintana FNP Generalized anxiety disorder Social [...] documented as of this encounter Care Teams Composition Floor Setter Relationship Specialty Start Date End Date Guerline Mckeon MD [address] [place] [address] PCP - General Family Medicine 06/06/18 documented as of this encounter
== END 2024-07-06 09:21 | disposition home or self-care (01) ==
PROVIDERS: PCP Family Medicine; Visit Provider Internal Medicine Gastroenterology
DX: K63.8219 Small intestinal bacterial overgrowth, unspecified (principal)
CPT/HCPCS: 99213

== ENCOUNTER → 2024-07-06 08:45 | Outpatient (BNVA) | payer OTHER, SELFPAY | PROVIDERS: PCP Family Medicine; Visit Provider Internal Medicine Gastroenterology | DX: K63.8219 Small intestinal bacterial overgrowth, unspecified (principal) | CPT/HCPCS: 99212 ==

== ENCOUNTER 2024-07-26 08:12 | Outpatient (REF) | payer OTHER, SELFPAY ==
--- OUTSIDE RECORDS SUMMARY | 2024-07-26 08:15 | XMS_ITS | Encounter Summary ---
Author Organization [employer] Address 75 [facility] 7t [place] [address] Care Team Providers Care Import Export Coordinator Name Role Phone Guerline Mckeon MD Primary Care Provider [phone] Reason for Visit * Reason Comments Med Refill Encounter Details Date Type Department Care Team ([facility] st Contact Info) Description 03/28/2023 Refill [facility] MEDICINE [address] [place] [address] Constantino Quintana FNP Generalized anxiety disorder Social [...] documented as of this encounter Care Teams Import Export Coordinator Relationship Specialty Start Date End Date Guerline Mckeon MD [address] [place] [address] PCP - General Family Medicine 06/06/18 documented as of this encounter
--- OUTSIDE RECORDS SUMMARY | 2024-07-26 08:15 | XMS_ITS | Clinical Summary ---
Author Organization [employer] Address 75 [facility] 7t [place] [address] Care Team Providers Care Linoleum Floor Layer Name Role Phone Guerline Mckeon MD Primary Care Provider [phone] Allergies No known active allergies Medications * [...] MORNING 30 capsule 3 07/02/19 25 Active tamsulosin (Flomax) 0.4 MG 24 [...] EST): Symptoms described seems vertigo from description [place] -Hallpike maneuver is neg for nystagmus but [...] (10/17/2023 8:55 PM EDT): - following with [facility]rology - continue oxybutynin and nortriptyline Assessment & Plan (03/13/2023 6:08 AM EDT): - following with [facility]rolog - continue oxybutynin and nortriptyline JONATHAN (generalized [...] current treatement plan. -Pt was seen by [facility] for second opinion previously and was given reassurance that there is no surgical indication at this time. Recently started seeing [facility], last seen in Feb 2024. Scheduled for EGD in September 2024 -extensive evaluation and treatment provided by [facility], last seen in August 2022 -seen by [...] current treatement plan. -Pt was seen by [facility] for second opinion previously and was given reassurance that there is no surgical indication at this time -extensive evaluation and treatment provided by [facility], last seen in August 2022 -seen by [...] current treatement plan. -Pt was seen by [facility] for second opinion previously and was given reassurance that there is no surgical indication at this time -extensive evaluation and treatment provided by [facility], last seen in August 2022 -seen [...] current treatement plan. -Pt was seen by [facility] for second opinion previously and was [...] taking Seroquel. -Continue taking Clonazepam. -His previous [facility] clinician has also left; will refer to internal [facility]. Benign prostatic hyperplasia 03/16/2012 Assessment & Plan (06/05/2024 12:34 PM EST): - following with [facility]rology - continue tamsulosin Assessment & Plan (10/17/2023 8:55 PM EDT): - following with [facility] - continue tamsulosin Assessment & Plan (03/13/2023 6:06 AM EDT): - following with [facility] - continue tamsulosin Chronic back pain 03/16/2012 [...] Plan (06/15/2024 12:10 PM EST): GI specialist: [facility], last seen in August 2022 seen by [facility] in the past per pt's request [...] Plan (10/18/2023 9:28 AM EDT): GI specialist: [facility], last seen in August 2022 seen by [facility] in the past per pt's request [...] Plan (03/13/2023 6:04 AM EDT): GI specialist: [facility], last seen in August 2022 seen by [facility] in the past per pt's request [...] Plan (09/20/2022 12:30 PM EDT): GI specialist: [facility], last seen in August 2022 seen by [facility] in the past per pt's request [...] Type Department Care Team Description 07/01/2024 Refill [facility] MEDICINE [address] [place] [address] Guerline Mckeon MD 06/14/2024 Refill [facility] MED[facility] [address] [place] [address] Guerline Mckeon MD 06/05/2024 11:30 AM EST Office Visit [facility] [address] [place] [address] Guerline Mckeon MD Primary hypertension (Primary Dx); [...] whether esophagitis present 06/05/2024 Travel 06/04/2024 Telephone [facility] MEDICINE [address] [place] [address] Andreia Olivares MA chart prep 05/28/2024 Refill [facility] PEDS [address] [place], [place] [phone] Guerline Mckeon MD Generalized anxiety disorder 05/10/2024 Refill [facility] MED[facility] [address] [place] [address] Guerline Mckeon MD Generalized anxiety disorder 04/30/2024 Refill [facility] MED[facility] [address] [place], [place] [phone] Guerline Mckeon MD from Last 3 Months [...] is your housing situation today? I have dennysjayjay chavez 03/21/[address] you [...] 9:23 AM EST) Triglycerides 85 <150 mg/dL [facility] Comment:Desirable Triglyceri de: less than 150 mg/dLBorderline High Triglyceride 150-199 mg/dLHigh Triglyceride: 200-499 mg/dLVery High Triglyceride: greater than or equal to 5OO mg/dL Cholesterol 183 <200 mg/dL [facility] Comment:Desirable Cholestero l: less than 200 mg/dLBorderline High Cholesterol: 200-239 mg/dLHigh Cholesterol: greater than 239 mg/dL LDL Cholesterol Calculated 129(H) <100 mg/dL [facility] Comment:Desirable LDL: less than 100 mg/dLNear Optimal/Above Optimal LDL: 110- 129 mg/dLBorderline High LDL: 130-159 mg/dLHigh LDL: 160-189 mg/dLVery High LDL: greater than or equal to 190 mg/dL HDL Cholesterol 37(L) >40 mg/dL [facility] Comment:Desirable HDL: great er than 40 mg/dL Note: This HDL assay may give artificially low results in patients with liver disease. Blood 07/14/2023 9:23 AM EST 07/14/2023 11:18 AM EST us Guerline Mckeon MD LAB BLOOD ORDERABLES Final Resul t [facility] [address] [place] [address] [phone] * Colonoscopy (12/17/2021) Colonoscopy Normal Normal 12/17/2021 us Historical Provider HEALTH MAINTENANCE Edited Result - Final from Last 3 Months or Most Recently Relevant to Health Maintenance Insurance [facility] ONE CARE Care Teams Linoleum Floor Layer Relationship Specialty Start Date End Date Guerline Mckeon MD [address] [place] [id number] PCP - General Family Medicine 06/06/18
--- OUTSIDE RECORDS SUMMARY | 2024-07-26 08:15 | XMS_ITS | Encounter Summary ---
Author Organization [employer] Address 75 [facility] 7t [place] [address] Care Team Providers Care Maintenance Mechanic Technician Name Role Phone Guerline Mckeon MD Primary Care Provider [phone] Reason for Visit * Reason Comments Med Refill Encounter Details Date Type Department Care Team ([facility] st Contact Info) Description 04/10/2023 Refill [facility] MEDICINE [address] [place], [place] [phone] Juju Flood MD [address] [place], [place] [phone] Social History Tobacco Use Types Packs/Day Years [...] documented as of this encounter Care Teams Maintenance Mechanic Technician Relationship Specialty Start Date End Date Guerline Mckeon MD [address] [place] [id number] PCP - General Family Medicine 06/06/18 documented as of this encounter
--- OUTSIDE RECORDS SUMMARY | 2024-07-26 08:15 | XMS_ITS | Encounter Summary ---
Author Organization [employer] Address 75 [facility] 7t [place] [address] Care Team Providers Care Release Of Information Clerk Name Role Phone Guerline Mckeon MD Primary Care Provider [phone] Reason for Visit * Reason Comments Med Refill Encounter Details Date Type Department Care Team ([facility] st Contact Info) Description 02/07/2024 Refill [facility] MEDICINE [address] [place], [place] [phone] Guerline Mckeon MD [address] [place], [place] [phone] Generalized anxiety disorder Social History Tobacco Use [...] documented as of this encounter Care Teams Release Of Information Clerk Relationship Specialty Start Date End Date Guerline Mckeon MD [address] [place] [address] PCP - General Family Medicine 06/06/18 documented as of this encounter
--- OUTSIDE RECORDS SUMMARY | 2024-07-26 08:15 | XMS_ITS | Encounter Summary ---
Author Organization [employer] Address 75 [facility] 7t [place] [address] Care Team Providers Care Assistant Store Manager Sales Name Role Phone Guerline Mckeon MD Primary Care Provider [phone] Reason for Visit * Reason Comments Med Refill Encounter Details Date Type Department Care Team ([facility] st Contact Info) Description 04/10/2023 Refill [facility] MEDICINE [address] [place], [place] [phone] Guerline Mckeon MD [address] [place], [place] [phone] Social History Tobacco Use Types Packs/Day Years [...] documented as of this encounter Care Teams Assistant Store Manager Sales Relationship Specialty Start Date End Date Guerline Mckeon MD [address] [place] [phone] PCP - General Family Medicine 06/06/18 documented as of this encounter
--- OUTSIDE RECORDS SUMMARY | 2024-07-26 08:15 | XMS_ITS | Encounter Summary ---
Author Organization [employer] Address 75 [facility] 7t [place] [address] Care Team Providers Care Forensic Scientist Name Role Phone Guerline Mckeon MD Primary Care Provider [phone] Reason for Visit * Reason Comments Med Refill Encounter Details Date Type Department Care Team ([facility] st Contact Info) Description 07/29/2023 Refill [facility] PEDS [address] [place], [place] [phone] Gureline Mckeon MD [address] [facility] [place], [place] [phone] Generalized anxiety disorder Social History Tobacco Use [...] documented as of this encounter Care Teams Forensic Scientist Relationship Specialty Start Date End Date Guerline Mckeon MD [address] [place] [address] PCP - General Family Medicine 06/06/18 documented as of this encounter
--- OUTSIDE RECORDS SUMMARY | 2024-07-26 08:15 | XMS_ITS | Encounter Summary ---
Author Organization [employer] Address 75 [facility] 7t [place] [address] Care Team Providers Care Epic Ambulatory Analysts Name Role Phone Guerline Mckeon MD Primary Care Provider [phone] Reason for Visit * Reason Comments Med Refill Encounter Details Date Type Department Care Team ([facility] st Contact Info) Description 09/24/2022 Refill [facility] MEDICINE [address] [place] [address] Guerline Mckeon MD [address] [place] [address] Social History Tobacco Use Types Packs/Day Years [...] documented as of this encounter Care Teams Epic Ambulatory Analysts Relationship Specialty Start Date End Date Guerline Mckeon MD [address] [place] [address] PCP - General Family Medicine 06/06/18 documented as of this encounter
--- OUTSIDE RECORDS SUMMARY | 2024-07-26 08:15 | XMS_ITS | Encounter Summary ---
Author Organization [employer] Address 75 [facility] 7t [place] [address] Care Team Providers Care Enterprise Systems Engineer Name Role Phone Guerline Mckeon MD Primary Care Provider [phone] Encounter Details Date Type Department Care Team (Late st Contact Info) Description 05/10/2022 Orders Only [facility] MEDICINE [address] [place], [place] [phone] Guerline Mckeon MD [address] [place], [place] [phone] Generalized anxiety disorder (Primary Dx) Social History [...] Primary documented in this encounter Care Teams Enterprise Systems Engineer Relationship Specialty Start Date End Date Guerline Mckeon MD [address] [place] [phone] PCP - General Family Medicine 06/06/18 documented as of this encounter
--- OUTSIDE RECORDS SUMMARY | 2024-07-26 08:15 | XMS_ITS | Encounter Summary ---
Author Organization [employer] Address 75 [facility] 7t [place] [address] Care Team Providers Care Java Solutions Architect Name Role Phone Guerline Mckeon MD Primary Care Provider [phone] Reason for Visit * Reason Comments Med Refill Encounter Details Date Type Department Care Team ([facility] st Contact Info) Description 07/01/2024 Refill [facility] MEDICINE [address] [place], [place] [phone] Guerline Mckeon MD [address] [place], [place] [phone] Social History Tobacco Use Types Packs/Day Years [...] the past 12 months, has t he [employer], gas, oil or water company threatened to [...] documented as of this encounter Care Teams Java Solutions Architect Relationship Specialty Start Date End Date Guerline Mckeon MD [address] [place] [address] PCP - General Family Medicine 06/06/18 documented as of this encounter
--- OUTSIDE RECORDS SUMMARY | 2024-07-26 08:15 | XMS_ITS | Encounter Summary ---
Author Organization [employer] Address 75 [facility] 7t [place] [address] Care Team Providers Care Equipment Maintenance Supervisor Name Role Phone Guerline Mckeon MD Primary Care Provider [phone] Reason for Visit * Reason Comments Med Refill Encounter Details Date Type Department Care Team ([facility] st Contact Info) Description 04/07/2023 Refill [facility] MEDICINE [address] [place] [address] Constantino Quintana FNP Generalized anxiety disorder Social [...] documented as of this encounter Care Teams Equipment Maintenance Supervisor Relationship Specialty Start Date End Date Guerline Mckeon MD [address] [place] [address] PCP - General Family Medicine 06/06/18 documented as of this encounter
[2024-07-26 11:43] LABS: MANUAL DIFF FLAG NO
[2024-07-26 11:51] LABS: Basophils Percent Auto 0.1 % (0-2); Eosinophils Absolute Auto 0.2 X10*3/uL (0.0-0.4); Eosinophils Percent Auto 2.2 % (0-4); Hematocrit 53.1 % (42.0-52.0); Hemoglobin 17.5 g/dl (14.0-18.0); Imm Gran Abs Auto 0.01 X10*3/uL (0.00-0.03); Imm Gran Pct Auto 0.1 % (0.0-0.4); Lymphocytes Absolute Auto 2.2 X10*3/uL (1.2-4.9); Lymphocytes Percent Auto 33.1 % (20-40); Mean Corpuscular Volume 94.1 fL (80.0-98.0); Mean Platelet Volume 13.3 fL (9.4-12.4); Monocytes Absolute Auto 0.5 X10*3/uL (0.1-1.2); Monocytes Percent Auto 7.8 % (2-11); Neutrophils Absolute Auto 3.8 x10*3/uL (2.0-8.3); Neutrophils Percent Auto 56.7 % (45-73); Platelet Count 159 X10*3/uL (160-400); Red Blood Count 5.64 X10*6/uL (4.60-5.80); Red Cell Distribution Width 11.9 % (11.0-16.0); White Blood Count 6.7 X10*3/uL (4.8-10.8)
[2024-07-26 12:02] LABS: Estimated Average Glucose 105 mg/dL; Hemoglobin A1C 154.4869 umol/L; Hemoglobin A1c % 5.3 % (<6.0); Total Hemoglobin (HGBA1C) 4446.8519 umol/L
[2024-07-26 12:16] LABS: Alanine Aminotransferase 39 U/L (0-40); Albumin Level 4.1 g/dL (3.5-5.0); Alkaline Phosphatase 57 U/L (39-117); Anion Gap 11 (12-20); Aspartate Amino Transferase 28 U/L (5-37); Blood Urea Nitrogen 13 mg/dL (9-16); Calcium 9.1 mg/dL (8.4-10.2); Carbon Dioxide 28 mmol/L (22-29); Chloride 108 mmol/L (96-108); Cholesterol 166 mg/dL (<200); Estimated Glomerular Filt Rate > 60; Glucose Random 98 mg/dL (60-115); HDL Cholesterol 35 mg/dL (>40); LDL Cholesterol Calculated 108 mg/dL (<100); Sodium 143 mmol/L (135-145); Total Protein 7.8 g/dL (6.5-8.0); Triglycerides 118 mg/dL (<150)
[2024-07-26 12:22] LABS: TSH reflex Free T4 1.36 uIU/mL (0.32-4.0)
[2024-07-26 12:25] LABS: Reflex LDLD? No
[2024-07-27 19:09] LABS: Erythropoietin (EPO) 9.9 mIU/mL (2.6-18.5)
== END 2024-07-26 08:13 | disposition home or self-care (01) ==
LOC: HO.HHCL 08:12
PROVIDERS: Visit Provider Family Medicine
DX: D75.1 Secondary polycythemia (principal); E78.5 Hyperlipidemia, unspecified; I10 Essential (primary) hypertension; Z13.1 Encounter for screening for diabetes mellitus
CPT/HCPCS: 80053; 80061; 82668; 83036; 84443; 85025

== ENCOUNTER 2024-09-08 08:47 | Emergency (ER) | payer OTHER, SELFPAY ==
--- NOTE | ~2024-09-08 | XR_ITS ---
CLINICAL HISTORY: constipation Radiograph of the abdomen 1 view Comparison: None Findings: A total of 4 films were obtained. No abnormal bowel dilatation. There is a mild amount of retained stool in the colon. No radiopaque foreign body. No radiopaque renal or ureteral calculus. No acute osseous abnormality. Impression: 1. Nonspecific and nonobstructive bowel gas pattern. 2. Mild colonic stool burden. This document has been electronically signed by: Rossana Last DO on 09/08/2024 11:27:59
[2024-09-08 08:51] VITALS: BP 142/77; PULSE 101; RESP 18; TEMP 36.2; O2SAT 98; BMI 33.4
--- NOTE | 2024-09-08 09:20 | ED.GENADULT ---
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 Reports this is chronic x years, worsening over the last month. Reports right side of abdomen feels swollen . He feels the gases in his stomach. Has not been passing flatus however reports small BM on arrival to ED. Denies abdominal pain. Denies N/V, flank pain or urinary sx. He has an ongoing history of constipation. He follows with GI. Per GI, constipation likely d/t patient's home medications (possibly clonazepam). He is on miralax for this. He has a history of abdominal bloating which was treated with Augmentin with improvement prompting GI to diagnose him with SIBO (small intestinal bacterial overgrowth). He had a recent flare of abdominal bloating. Saw GI on 07/06/24 and was treated with a 14 day course of Keflex for SIBO. systems programmer utilized throughout visit to communicate with patient. Related Data Home Medications ?Medication ?Instructions ?Recorded ?Confirmed clonazepam 1 mg tablet 1 tab PO BID 09/10/21 02/09/23 lisinopril 20 mg tablet 1 tab PO DAILY 09/10/21 02/09/23 metoprolol succinate 100 mg 1 tab PO DAILY 09/10/21 02/09/23 tablet,extended release 24 hr quetiapine 100 mg tablet 1 tab PO BEDTIME 09/10/21 02/09/23 lisinopril 30 mg tablet 30 mg PO DAILY 12/28/21 02/09/23 cholecalciferol (vitamin D3) 25 25 mcg PO DAILY 04/09/22 02/09/23 mcg (1,000 unit) capsule (Vitamin D3) hydroxyzine HCl 25 mg tablet 25 - 50 mg PO BEDTIME PRN insomnia 04/09/22 02/09/23 tamsulosin 0.4 mg capsule 0.4 mg PO DAILY 11/04/22 09/06/23 ramelteon 8 mg tablet 8 mg PO BEDTIME PRN insomnia 08/06/22 02/09/23 sildenafil 50 mg tablet (Viagra) 50 mg PO DAILY PRN 08/06/22 02/09/23 oxybutynin chloride 5 mg tablet 5 mg PO BEDTIME 07/06/24 oxybutynin chloride 5 mg mg PO DAILY 07/06/24 tablet,extended release 24 hr pantoprazole 40 mg tablet,delayed mg PO DAILY 07/06/24 release pravastatin 40 mg tablet 40 mg PO BEDTIME 07/06/24 psyllium husk (with sugar) 3 PO 07/06/24 gram/12 gram oral powder (Reguloid (psyllium husk-sucrose)) Previous Rx's ?Medication ?Instructions ?Recorded esomeprazole magnesium 40 mg 40 mg PO DAILY #60 caps 12/17/21 capsule,delayed release nortriptyline 10 mg capsule 10 mg PO BEDTIME #30 caps 03/17/22 polyethylene glycol 3350 17 gram 17 g PO BID #100 ea 05/25/22 oral powder packet (Miralax) bisacodyl 10 mg rectal suppository 10 mg NM DAILY 3 days #3 ea 06/29/22 sennosides 8.6 mg tablet (Natural 17.2 mg (2 x 8.6 mg) PO DAILY 3 06/29/22 Senna Laxative) days #6 tabs amoxicillin 500 mg-potassium 1 tab PO Q8H #21 tabs 07/17/24 clavulanate 125 mg tablet (Augmentin) docusate sodium 100 mg capsule 100 mg PO BID #20 caps 09/08/24 (Colace) Allergies Allergy/AdvReac Type Severity Reaction Status Date / Time No Known Allergies Allergy Verified 09/08/24 08:52 Review of Systems Review of Systems: Yes all other systems are reviewed and are negative PMFSH Past Medical History Attestation statement: The following information was validated with the patient. Source: old records reviewed and nursing notes reviewed Medical History Abdominal wall pain Hemorrhoids Incisional pain Internal hemorrhoids with complication Dyslipidemia Congenital cystic kidney disease Chronic abdominal pain Allergic rhinitis Chronic back pain Constipation GERD (gastroesophageal reflux disease) Anxiety BPH (benign prostatic hyperplasia) HTN (hypertension) Metabolic syndrome Overweight DUNIA (obstructive sleep apnea) Surgical History H/O abdominal surgery History of esophagogastroduodenoscopy (EGD) H/O colonoscopy H/O hemorrhoidectomy H/O hernia repair Social History Social History Household Members: None Alcohol intake: never Patient Tobacco Use Status: Never used Tobacco Smoked in Last 30 Days: No Second Hand Smoke Exposure: No Use of substances other than those prescribed or required for medical reasons: No Advance Directives: No Advance Directives Information Provided: Yes Do you have a plan to hurt others: No Plan Current occupational status: unemployed Physical Exam ED Vital Signs: Vital Signs - 24 hr 09/08/24 08:51 09/08/24 09:39 09/08/24 13:36 Temperature 97.2 F 97.5 F Pulse Rate 101 H 78 Respiratory Rate 18 16 18 Blood Pressure 142/77 H 147/78 H Pulse Oximetry 98 97 Oxygen Delivery Method Room Air Room Air BMI result Body Mass Index 33.4 tachycardic, hypertensive General: Well appearing, in no acute distress. Skin: Warm, dry, intact. No rashes or lesions. Head: Normocephalic, atraumatic. EENT: Hearing is intact b/l. Conjunctiva clear. PERRLA. EOM intact. Moist mucous membranes.? Neck: Supple without LAD Cardiac: Chest wall symmetric. RRR Lungs: Normal respiratory effort without accessory muscle use. CTA bilaterally. Abdomen: soft, mildly distended, nontender to palpation, no rebound or guarding. positive bs throughout. Ext: Upper and lower extremities atraumatic, without tenderness, deformity, swelling or erythema Neuro: AOx3. Normal speech. Ambulating with steady gait. Course Course Course Narrative: cbc without leukocytosis or left shift. no anema. h&h stable chemistry without acute electrolyte abnormality requiring intervention. no tin. liver function at baseline. normal lipase. urine without infection. KUB showing mild amount of retained stool in the colon. no bowel obstruction. > discussed with dr. negron. plan to discharge patient with continued bowel regimen and outpatient GI follow up. no concern for acute intra-abdominal pathology. Patient has remained stable throughout ED visit today. Discussed worrisome signs and symptoms and when to return to the ED. All questions answered at this time. Patient is agreeable with disposition and stable for discharge. Medical Decision Making Medical Decision Making [facility] Narrative: This is a 64 yo male presenting with symptoms consistent with constipation.? Differential diagnosis includes constipation, electrolyte abnormality, dehydration. Presentation not consistent with acute bowel obstruction caused by tumor, stricture, hernia, adhesion, volvulus or fecal impaction. Low suspicion for etiology related to new medications including opiates, antipsychotics, anticholinergics, antacids, or antihistamines. Presentation not consistent with acute anorectal disorders. Low suspicion for chronic causes of constipation including hypothyroidism. Presentation not consistent with other acute, emergent causes of constipation at this time. Plan: supportive care, KUB, basic labs to assess electrolytes? Differential Diagnosis Differential Diagnoses: The differential diagnosis associated with the presentation includes as above. Admission/Observation not indicated. Lab Data [facility] Lab Attestation statement: I reviewed the patient's lab results. as above. 09/08/24 09:21 09/08/24 09:21 Labs: Lab Results 09/08/24 09/08/24 Range/Units 09:21 10:29 WBC 6.3 (4.8-10.8) X10*3/uL RBC 5.49 (4.60-5.80) X10*6/uL Hgb 17.4 (14.0-18.0) g/dl Hct 50.0 (42.0-52.0) % MCV 91.1 (80.0-98.0) fL MCH 31.7 (27.0-33.0) pg MCHC 34.8 (31.0-36.0) g/dl RDW 11.9 (11.0-16.0) % Plt Count 153 L (160-400) X10*3/uL MPV 11.3 (9.4-12.4) fL Immature Gran % (Auto) 0.5 H (0.0-0.4) % Neut % (Auto) 56.8 (45-73) % Lymph % (Auto) 32.6 (20-40) % [place] % (Auto) 7.9 (2-11) % Eos % (Auto) 1.9 (0-4) % Baso % (Auto) 0.3 (0-2) % Lymph # (Auto) 2.1 (1.2-4.9) X10*3/uL [place] # (Auto) 0.5 (0.1-1.2) X10*3/uL Eos # (Auto) 0.1 (0.0-0.4) X10*3/uL Baso # (Auto) 0.0 (0.0-0.2) X10*3/uL Abs Immat Gran (auto) 0.03 (0.00-0.03) X10*3/uL Absolute Neuts (auto) 3.6 (2.0-8.3) x10*3/uL Absolute Nucleated RBC 0.000 (0.0-0.012) X10*3/uL Nucleated RBC % (auto) 0.0 (0.0-0.2) /100WBC Sodium 141 (135-145) mmol/L Potassium 3.6 (3.3-5.1) mmol/L Chloride 109 H (96-108) mmol/L Carbon Dioxide 26 (22-29) mmol/L Anion Gap 10 L (12-20) BUN 12 (9-16) mg/dL Creatinine 1.00 (0.5-1.4) mg/dL Estim Creat Clear Calc 78.4 Estimated GFR > 60 Random Glucose 88 (60-115) mg/dL Calcium 9.0 (8.4-10.2) mg/dL Magnesium 2.1 (1.6-2.6) mg/dL Total Bilirubin 1.2 H (0.0-1.0) mg/dL AST 30 (5-37) U/L ALT 44 H (0-40) U/L Alkaline Phosphatase 71 (39-117) U/L Total Protein 7.2 (6.5-8.0) g/dL Albumin 4.1 (3.5-5.0) g/dL Lipase 15 (8-78) U/L Urine Color Yellow Urine Appearance Clear Urine pH 7.0 (5.0-9.0) Ur Specific [place] 1.010 (1.005-1.025) Urine Protein Negative (Neg-Trace) mg/dL Urine Glucose (UA) Negative (Negative) mg/dL Urine Ketones Negative (Negative) mg/dL Urine Blood Negative (Negative) Urine Nitrite Negative (Negative) Ur Leukocyte Esterase Small (1+) H (Negative) Urine RBC 0-2 (0-2) /HPF Urine WBC 0-5 (0-5) /HPF Ur Squamous Epith Cells 0-2 (0-2) /HPF Urine Bacteria None Seen (None Seen) Hyaline Casts 0-2 (0-2) /LPF Independent Interpretation I performed an independent interpretation of an: Plain X-Ray Interpretation: KUB without bowel obstruction Radiology Impression Discussion of test interpretation with radiology: I have reviewed the radiologist's reading. Radiologist Impression: Procedure(s): XR KUB Accession Number(s): [id number] cc: Audrey Erazo MD; Guerline Mckeon MD~ CLINICAL HISTORY: constipation Radiograph of the abdomen 1 view Comparison: None Findings: A total of 4 films were obtained. No abnormal bowel dilatation. There is a mild amount of retained stool in the colon. No radiopaque foreign body. No radiopaque renal or ureteral calculus. No acute osseous abnormality. Impression: 1. Nonspecific and nonobstructive bowel gas pattern. 2. Mild colonic stool burden. External Record Review External record reviewed: Inpatient record, Office record, Outpatient record and Prior outpatient labs Chronic Conditions Patient?s care impacted by: Other (constipation) Social Determinants Patient?s care significantly limited by Social Determinants of Health including: Other Social Determinant of Health Critical Care Time Critical Care Time Critical Care Time: No Discharge Plan Discharge Clinical Impression: Chronic constipation Patient Disposition: Home, Self-Care Instructions: Constipation (ED) Additional Instructions: Your lab work up today is unremarkable. Your imaging shows that you are mildly constipated. See home care instructions. There is no evidence of bowel obstruction. I recommend using stool softeners such as Colace 100 mg twice daily. In addition, take over the counter Miralax 2-3 times daily until you begin having multiple large volume bowel movements. Increase your fiber intake. Follow up with your GI doctor this week. Return with new or worsening symptoms. In the case of an emergency call 911. Prescriptions: New docusate sodium [Colace] 100 mg capsule 100 mg PO BID Qty: 20 0RF No Action nortriptyline 10 mg capsule 10 mg PO BEDTIME Qty: 30 3RF polyethylene glycol 3350 [Miralax] 17 gram powder in packet 17 g PO BID Qty: 100 0RF sennosides [Natural Senna Laxative] 8.6 mg tablet 17.2 mg PO DAILY 3 Days Qty: 6 1RF bisacodyl 10 mg suppository 10 mg NM DAILY 3 Days Qty: 3 0RF amoxicillin-pot clavulanate [Augmentin] 500-125 mg tablet 1 tab PO Q8H Qty: 21 0RF esomeprazole magnesium 40 mg capsule,delayed release(DR/EC) 40 mg PO DAILY Qty: 60 2RF metoprolol succinate 100 mg tablet extended release 24 hr 1 tab PO DAILY lisinopril 20 mg tablet 1 tab PO DAILY quetiapine 100 mg tablet 1 tab PO BEDTIME clonazepam 1 mg tablet 1 tab PO BID pravastatin 40 mg tablet 40 mg PO BEDTIME oxybutynin chloride 5 mg tablet 5 mg PO BEDTIME tamsulosin 0.4 mg capsule 0.4 mg PO DAILY cholecalciferol (vitamin D3) [Vitamin D3] 25 mcg (1,000 unit) capsule 25 mcg PO DAILY hydroxyzine HCl 25 mg tablet 25 - 50 mg PO BEDTIME PRN (Reason: insomnia) sildenafil [Viagra] 50 mg tablet 50 mg PO DAILY PRN ramelteon 8 mg tablet 8 mg PO BEDTIME PRN (Reason: insomnia) lisinopril 30 mg tablet 30 mg PO DAILY pantoprazole 40 mg tablet,delayed release (DR/EC) PO DAILY Reguloid (psyllium husk-sucro) 3 gram/12 gram powder PO oxybutynin chloride 5 mg tablet extended release 24hr PO DAILY Referrals: Tony Negron MD [Physician] - Guerline Mckeon MD [Primary Care Provider] - Interventions: ED Discharge Assessment Last Done: 09/08/24 13:36 Discharge Date/Time: 09/08/24 13:37 Print Language: Sammarinese
[2024-09-08 09:26] LABS: MANUAL DIFF FLAG NO
[2024-09-08 09:27] LABS: Basophils Percent Auto 0.3 % (0-2); Eosinophils Absolute Auto 0.1 X10*3/uL (0.0-0.4); Eosinophils Percent Auto 1.9 % (0-4); Hemoglobin 17.4 g/dl (14.0-18.0); Imm Gran Abs Auto 0.03 X10*3/uL (0.00-0.03); Imm Gran Pct Auto 0.5 % (0.0-0.4); Lymphocytes Absolute Auto 2.1 X10*3/uL (1.2-4.9); Lymphocytes Percent Auto 32.6 % (20-40); Mean Corpuscular HGB Conc 34.8 g/dl (31.0-36.0); Mean Corpuscular Hemoglobin 31.7 pg (27.0-33.0); Mean Corpuscular Volume 91.1 fL (80.0-98.0); Mean Platelet Volume 11.3 fL (9.4-12.4); Monocytes Absolute Auto 0.5 X10*3/uL (0.1-1.2); Monocytes Percent Auto 7.9 % (2-11); Neutrophils Absolute Auto 3.6 x10*3/uL (2.0-8.3); Neutrophils Percent Auto 56.8 % (45-73); Platelet Count 153 X10*3/uL (160-400); Red Blood Count 5.49 X10*6/uL (4.60-5.80); Red Cell Distribution Width 11.9 % (11.0-16.0); White Blood Count 6.3 X10*3/uL (4.8-10.8)
[2024-09-08 09:39] VITALS: RESP 16
[2024-09-08 10:37] LABS: Appearance Urine Clear; Color Urine Yellow; Glucose Urine UA Negative (Negative); Leukocyte Esterase Urine Small (1+) (Negative); Nitrite Urine Negative (Negative); UMIC TRIGGER UACC YES; Urine Blood Negative (Negative); Urine Ketones Negative (Negative); Urine Protein Negative (Neg-Trace)
[2024-09-08 10:51] LABS: Bacteria Urine None Seen (None Seen); Hyaline Casts Urine 0-2 /LPF (0-2); RBC Urine 0-2 /HPF (0-2); Squamous Epithelial Cell Urine 0-2 /HPF (0-2); UACC Culture Trigger YES; WBC Urine 0-5 /HPF (0-5)
--- OUTSIDE RECORDS SUMMARY | 2024-09-08 10:51 | XMS_ITS | Encounter Summary ---
Author Organization [employer] Address [address] [place] [address] Care Team Providers Care Regional Sales Director Name Role Phone Guerline Mckeon MD Primary Care Provider [phone] Reason for Visit * Reason Comments Med Refill Encounter Details Date Type Department Care Team ([facility] st Contact Info) Description 02/07/2024 Refill [facility] [address], [place] [phone] Guerline Mckeon MD [address], [place] [id number] Generalized anxiety disorder Social History Tobacco Use [...] documented as of this encounter Care Teams Regional Sales Director Relationship Specialty Start Date End Date Guerline Mckeon MD [address] [place] [id number] PCP - General Family Medicine 06/06/18 documented as of this encounter
--- OUTSIDE RECORDS SUMMARY | 2024-09-08 10:51 | XMS_ITS | Clinical Summary ---
Author Organization [employer] Address [address] [facility] 7t [place] [address] Care Team Providers Care Repulping Supervisor Name Role Phone Guerline Mckeon MD Primary Care Provider [phone] Allergies No known active allergies Medications * This document contains information received from the source organization and may not represent a complete record from that organization. ipratropium (Atrovent) 0.03 % nasal spray Administer 1 spray into affected nostril(s) every 12 (twelve) hours. 8 Active nortriptyline (Pamelor) 10 MG capsule Take 1 capsule by mouth at bedtime. Active omeprazole (PriLOSEC) [address] capsule Take 1 capsule by mouth before breakfast. Active polyvinyl alcohol (Liquifilm Tears) 1.4 % ophthalmic solution one drop in each eye 3 times a day for dryness 1 Active oxybutynin XL (Ditropan-XL) 5 MG 24 hr tablet Take 5 mg by mouth in the morning. 3 Active hydrOXYzine HCl (Atarax) 25 MG tablet Take 25 mg by mouth. 1-2 tablets by mouth at bedtime 4 Active Vitamin D High Potency 25 MCG (1000 UT) capsule TAKE 1 CAPSULE BY MOUTH EVERY DAY 90 capsule 3 4 Active metoprolol succinate XL (Toprol-XL) 100 MG 24 hr tablet TAKE 1 TABLET BY MOUTH EVERY DAY 90 tablet 3 4 Active pravastatin (Pravachol) 40 MG tablet TAKE 1 TABLET BY MOUTH AT BEDTIME 90 tablet 4 Active sildenafil (Viagra) 50 MG tabletIndicati ons:Generalize d anxiety disorder TAKE 1 TABLET 1 HOUR BEFORE SEXUAL RELATIONS ONCE DAILY NEEDED. 10 tablet 3 4 Active clonazePAM (KlonoPIN) 1 MG tabletIndicati ons:Generalize d anxiety disorder TAKE 1 TABLET BY MOUTH TWICE DAILY 56 tablet 4 4 Active lisinopril 30 MG tablet Take 1 tablet (30 mg) by mouth at bedtime. 90 tablet 3 4 Active psyllium (Reguloid) 28.3 % powder MIX 1 TABLESPOONFUL IN 8 OUNCES OF WATER OR JUICE AND DRINK BY MOUTH TWICE DAILY NEEDED FOR CONSTIPATION 369 g 3 5 Active tamsulosin (Flomax) 0.4 MG 24 hr capsule TAKE 1 CAPSULE EVERY MORNING 30 capsule 3 5 Active Active Problems Problem Noted Date Diagnosed Date [...] EST): Symptoms described seems vertigo from description Likely -Hallpike maneuver is neg for nystagmus but did caused some mild symptoms -meclizine prn -head postion exercises explained to pt -cbc,chem,TSH today -apt w PCP 07/13/2023 -has apt schedule already---if symptoms perisist may need to consdier further testing image testing -alarm signs ns symptoms discussed w pt Assessment & Plan (06/18/2023 4:59 PM EST): Symptoms described seems vertigo from description Likely -Hallpike maneuver is neg for nystagmus but did caused some mild symptoms -meclizine prn -head postion exercises explained to pt -cbc,chem,TSH today -apt w PCP 07/13/2023 -has apt schedule already---if symptoms perisist may need to consdier further testing image testing -alarm signs ns symptoms discussed w pt Neurogenic bladder 03/13/2023 Assessment & Plan (10/17/2023 8:55 PM EDT): - following with [facility] urology - continue oxybutynin and nortriptyline Assessment & Plan (03/13/2023 6:08 AM EDT): - following with [facility] urology - continue oxybutynin and nortriptyline [...] indication at this time. Recently started seeing [facility], last seen in Feb 2024. Scheduled for EGD in September 2024 -extensive evaluation and treatment provided by [facility], last seen in August 2022 -seen [...] time -extensive evaluation and treatment provided by [facility], last seen in August 2022 -seen [...] current treatement plan. -Pt was seen by [facility] for second opinion previously and was given reassurance that there is no surgical indication at this time -extensive evaluation and treatment provided by [facility], last seen in August 2022 -seen [...] current treatement plan. -Pt was seen by [facility] for second opinion previously and was [...] (06/05/2024 12:34 PM EST): - following with [facility] urology - continue tamsulosin Assessment & Plan (10/17/2023 8:55 PM EDT): - following with [facility] urology - continue tamsulosin Assessment & Plan (03/13/2023 6:06 AM EDT): - following with [facility] urology - continue tamsulosin Chronic back pain 03/16/2012 [...] Plan (06/15/2024 12:10 PM EST): GI specialist: [facility], last seen in August 2022 seen by [facility] in the past per pt's request [...] Plan (10/18/2023 9:28 AM EDT): GI specialist: [facility], last seen in August 2022 seen by [facility] in the past per pt's request [...] Plan (03/13/2023 6:04 AM EDT): GI specialist: [facility], last seen in August 2022 seen by [facility] in the past per pt's request [...] Plan (09/20/2022 12:30 PM EDT): GI specialist: [facility], last seen in August 2022 seen by [facility] in the past per pt's request [...] Encounters Date Type Department Care Team Description 09/08/2024 Orders Only GENERIC EXTERNAL DATA DEPARTMENT Provider, Generic External Data 09/07/[address] [address] Guerline Mckeon MD Results 07/01/2024 Refill [facility] [address] [place], [place] [phone] Guerline Mckeon MD 06/14/2024 Refill [facility] [address] [place] [address] Guerline Mckeon MD from Last 3 Months [...] 07/04/2023 Tobacco Screening 06/05/2025 06/05/2024 Lipid Panel 07/26/2029 07/26/2024, 0201/2024, 09/08/2022, Additional history exists DTaP/Tdap/Td Vaccines (3 - [...] Procedure Name Priority Date/Time Associated Diagnosis Comments URINALYSIS, COMPLETE, WITH REFLEX TO CULTURE Routine 09/08/2024 10:29 AM EDT CBC WITH AUTO DIFFERENTIAL Routine 09/08/2024 9:21 AM EDT LIPID PANEL WITH REFLEX TO DIRECT LDL Routine 07/26/2024 8:14 AM EST Dyslipidemia HEMOGLOBIN A1C Routine 07/26/2024 8:14 AM EST Primary hypertension TSH W/REFLEX TO FT4 Routine 07/26/2024 8 :14 AM EST Primary hypertension PATHOLOGIST REVIEW - CBC Routine 07/26/2024 8:14 AM EST Erythrocytosis COMPREHENSIVE METABOLIC PANEL Routine 07/26/2024 8:14 AM EST Erythrocytosis ERYTHROPOIETIN Routine 07/26/2024 8:14 AM EST Erythrocytosis CBC WITH AUTO DIFFERENTIAL Routine 07/26/2024 8:14 AM EST Erythrocytosis HM COLONOSCOPY Routine 12/17/2021 from Last 3 Months or Most Recently Relevant to Health Maintenance Results * (ABNORMAL) Urinalysis, Complete, with Reflex to Culture (09/08/2024 10:29 AM EDT) Color Urine Yellow [facility] Appearance Urine Clear [facility] PH 7.0 5.0 - 9.0 [facility] Glucose Urine UA Negative Negative mg/dL [facility] Urine Blood Negative Negative [facility] Specific [place] - Urine 1.010 1.005 - 1.025 [facility] Urine Protein Negative Neg-Trace mg/dL [facility] Urine Ketones Negative Negative mg/dL [facility] Nitrite Urine Negative Negative [facility] Leukocyte Esterase Urine Small (1+)(A) Negative [facility] 09/08/2024 10:2 9 AM EDT 09/08/2024 10:34 AM EDT Narrative [facility] - 09/08/2024 10:39 AM EDT [id number], Clean [employer] us Generic External Data Provider LAB URINE ORDERAB LES Final Result [facility] [address] [place] [address] [phone] * (ABNORMAL) CBC auto differential (09/08/2024 9:21 AM EDT) Only the most recent of2 resultswithin the time period is included. White Blood Count 6.3 4.8 - 10.8 X10*3/uL [facility] Red Blood Count 5.49 4.60 - 5.80 X10*6/uL [facility] Hemoglobin 17.4 14.0 - 18.0 g/dl [facility] Hematocrit 50.0 42.0 - 52.0 % [facility] Mean Corpuscular Volume 91.1 80.0 - 98.0 fL [facility] Mean Corpuscular Hemoglobin 31.7 27.0 - 33.0 pg [facility] Mean Corpuscular HGB Conc 34.8 31.0 - 36.0 g/dl [facility] Red Cell Distribution Width 11.9 11.0 - 16.0 % [facility] Platelet Count 153(L) 160 - 400 X10*3/uL [facility] Mean Platelet Volume 11.3 9.4 - 12.4 fL [facility] Neutrophils Percent Auto 56.8 45 - 73 % [facility] Imm Gran Pct Auto 0.5(H) 0.0 - 0.4 % [facility] Lymphocytes Percent Auto 32.6 20 - 40 % [facility] Monocytes Percent Auto 7.9 2 - 11 % [facility] Eosinophils Percent Auto 1.9 0 - 4 % [facility] Basophils Percent Auto 0.3 0 - 2 % [facility] NRBC Pct Auto 0.0 0.0 - 0.2 /100WBC [facility] Neutrophils Absolute Auto 3.6 2.0 - 8.3 x10*3/uL [facility] Imm Gran Abs Auto 0.03 0.00 - 0.03 X10*3/uL [facility] Lymphocytes Absolute Auto 2.1 1.2 - 4.9 X10*3/uL [facility] Monocytes Absolute Auto 0.5 0.1 - 1.2 X10*3/uL [facility] Eosinophils Absolute Auto 0.1 0.0 - 0.4 X10*3/uL [facility] Basophils Absolute Auto 0.0 0.0 - 0.2 X10*3/uL [facility] NRBC Abs Auto 0.000 0.0 - 0.012 X10*3/uL [facility] 09/08/2024 9:21 AM EDT 09/08/2024 9:24 AM EDT us Generic External Data Provider LAB BLOOD ORDERAB LES Final Result Performing Organization Address [facility] Co de Phone Number [facility] [address] [place] [phone] * Pathologist Review Of Peripheral Smear (07/26/2024 8:14 AM EST) Pathologist Review - CBC SEE NOTE [facility] Comment:Peripheral blood yovani ments are normal appearing.- Felix Yost M.D. Pathology Blood Venous blood specimen / Unknown 07/26/2024 8:14 AM EST 07/26/2024 11:36 AM EST us Guerline Mckeon MD LAB BLOOD ORDERABLES Final Resul t Performing Organization Address [facility] de Phone Number [facility] [address] [place] [phone] * TSH with Reflex to Free T4 (07/26/2024 8:14 AM EST) TSH reflex Free T4 1.36 0.32 - 4.0 uIU/mL [facility] Blood 07/26/2024 8:14 AM EST 07/26/2024 11:36 AM EST Guerline Mckeon MD LAB BLOOD ORDERABLES Final Resul t Performing Organization Address [facility] Co de Phone Number [facility] [address] [place] [phone] * (ABNORMAL) Lipid Panel with Reflex to Direct LDL (07/26/2024 8:14 AM EST) Triglycerides 118 <150 mg/dL [facility] Comment:Desirable Triglyceri de: less than 150 mg/dLBorderline High Triglyceride 150-199 mg/dLHigh Triglyceride: 200-499 mg/dLVery High Triglyceride: greater than or equal to 5OO mg/dL Cholesterol 166 <200 mg/dL [facility] Comment:Desirable Cholestero l: less than 200 mg/dLBorderline High Cholesterol: 200-239 mg/dLHigh Cholesterol: greater than 239 mg/dL LDL Cholesterol Calculated 108(H) <100 mg/dL [facility] Comment:Desirable LDL: less than 100 mg/dLNear Optimal/Above Optimal LDL: 110- 129 mg/dLBorderline High LDL: 130-159 mg/dLHigh LDL: 160-189 mg/dLVery High LDL: greater than or equal to 190 mg/dL HDL Cholesterol 35(L) >40 mg/dL [facility] Comment:Desirable HDL: great er than 40 mg/dL Note: This HDL assay may give artificially low results in patients with liver disease. Blood 07/26/2024 8:14 AM EST 07/26/2024 11:36 AM EST Guerline Mckeon MD LAB BLOOD ORDERABLES Final Resul t Performing Organization Address [facility] de Phone Number [facility] [address] [place] [phone] * Erythropoietin (07/26/2024 8:14 AM EST) Erythropoietin 9.9 2.6 - 18.5 mIU/mL [facility] Comment:THIS TEST WAS PERFOR MED AT:[facility] [address] [phone] TALAMANTES MD Blood Venous blood specimen / Unknown 07/26/2024 8:14 AM EST 07/26/2024 11:36 AM EST us Guerline Mckeon MD LAB BLOOD ORDERABLES Final Resul t Performing Organization Address City/[facility] Co de Phone Number [facility] [address] [place] [phone] * Hemoglobin A1c (07/26/2024 8:14 AM EST) Hemoglobin A1c 5.3 <6.0 % [facility] Comment:Hemoglobin A1C Refer ence Range Adults: 4.8 - 6.0 % Non diabetic: < 6.0 % Goal: < 7.0 %Additional Action Suggested: > 8.0 %Note: Hemoglobin A1c results are invalid for patients with abnormal amounts of HbF. Blood transfusions may impact the HbA1c concentration in the patient sample. Estimated Average Glucose 105 mg/dL [facility] Comment:eAG = Estimated ave rage glucose which is %A1C expressed asaverage glucose, using the formula of the S1K-WueiulhXcsyzvo Glucose study (ADAG), Diabetes Care, Vol.31,#8,2007 Blood Venous blood specimen / Unknown 07/26/2024 8:14 AM EST 07/26/2024 11:36 AM EST us Guerline Mckeon MD LAB BLOOD ORDERABLES Final Resul t [facility] [address] [place] [phone] [phone] * (ABNORMAL) Comprehensive Metabolic Panel (07/26/2024 8:14 AM EST) Sodium 143 135 - 145 mmol/L [facility] Potassium 4.0 3.3 - 5.1 mmol/L [facility] Chloride 108 96 - 108 mmol/L [facility] Carbon Dioxide 28 22 - 29 mmol/L [facility] Anion Gap 11(L) 12 - 20 [facility] Urea Nitrogen (BUN) 13 9 - 16 mg/dL [facility] Creatinine, Serum 0.82 0.5 - 1.4 mg/dL [facility] Estimated Glomerular Filt Rate >60 [facility] Comment:Chronic Kidney Disea se: Estimated GFR < 60 mL/min/[id number] Kidney Disease: Estimated GFR < 15 mL/min/1.73m2 Glucose 98 60 - 115 mg/dL [facility] Calcium 9.1 8.4 - 10.2 mg/dL [facility] Bilirubin, Total 1.0 0.0 - 1.0 mg/dL [facility] Aspartate Amino Transferase 28 5 - 37 U/L [facility] Alanine Aminotransferase 39 0 - 40 U/L [facility] Total Protein 7.8 6.5 - 8.0 g/dL [facility] Albumin Level 4.1 3.5 - 5.0 g/dL [facility] Alkaline Phosphatase 57 39 - 117 U/L [facility] Blood Venous blood specimen / Unknown 07/26/2024 8:14 AM EST 07/26/2024 11:36 AM EST Guerline Mckeon MD LAB BLOOD ORDERABLES Final Resul t [facility] [address] [place] [phone] * Colonoscopy (12/17/2021) Colonoscopy Normal Normal 12/17/2021 Historical Provider HEALTH MAINTENANCE Edited Result - Final from Last 3 Months or Most Recently Relevant to Health Maintenance Insurance [facility] Care Teams Repulping Supervisor Relationship Specialty Start Date End Date Guerline Mckeon MD [address] [place] [phone] PCP - General Family Medicine 06/06/18
--- OUTSIDE RECORDS SUMMARY | 2024-09-08 10:51 | XMS_ITS | Encounter Summary ---
Author Organization [employer] Address [address] [facility] 7t [place] [address] Care Team Providers Care Equip Tech Name Role Phone Guerline Mckeon MD Primary Care Provider [phone] Reason for Visit * Reason Onset Date Comments Results 09/07/2024 Encounter Details Date Type Department Care Team (Late st Contact Info) Description 09/07/2024 Telephone [facility] [address] [place], [place] [phone] Guerline Mckeon MD [address] [place] [address] Results Social History Tobacco Use Types Packs/Day Years [...] AM EDT documented as of this encounter Miscellaneous Notes * Telephone Encounter - Tanya Espinal RN - 09/07/2024 12:37 PM EDT Pt presented to Green team desktop analyst asking about lab results. Advised pt labs normal but cholesterol is elevated but improved from last time. Pt reports taking cholesterol medication but complainedabout ongoing intestine inflammation , pointed to right side. Per PCP office note from 06/15/24, pthas ongoing inflammation, bloating, discomfort, has endoscopy scheduled for September. Pt reports moving bowels this morning but its not regular. Advised pt to go to WIC this afternoon, appts available, advised of Tuesday WIC hours. Pt verbalized understanding, stated he plans to go tomorrow. documented in this encounter Plan of Treatment Not on file documented as of this encounter Visit Diagnoses Not on filedocumented in this encounter Additional Health Concerns Assessment Noted Time PHQ-9 Depression Total Score: 2 12/07/19 23 9:58 AM EDT documented as of this encounter Care Teams Equip Tech Relationship Specialty Start Date End Date Guerline Mckeon MD [address] [place] [address] PCP - General Family Medicine 06/06/18 documented as of this encounter
--- OUTSIDE RECORDS SUMMARY | 2024-09-08 10:51 | XMS_ITS | Encounter Summary ---
Author Organization [employer] Address [address] [facility] 7t [place] [address] Care Team Providers Care Automotive Generator Repairer Name Role Phone Guerline Mckeon MD Primary Care Provider [phone] Reason for Visit * Reason Comments Med Refill Encounter Details Date Type Department Care Team ([facility] st Contact Info) Description 07/29/2023 Refill [facility] [address] [place], [place] [phone] Guerline Mckeon MD [address] [facility] [place], [place] [phone] Generalized anxiety disorder Social History Tobacco Use [...] documented as of this encounter Care Teams Automotive Generator Repairer Relationship Specialty Start Date End Date Guerline Mckeon MD [address] [place] [address] PCP - General Family Medicine 06/06/18 documented as of this encounter
--- OUTSIDE RECORDS SUMMARY | 2024-09-08 10:51 | XMS_ITS | Encounter Summary ---
Author Organization [employer] Address [address] [facility] 7t [place] [address] Care Team Providers Care Lumber Sticker Name Role Phone Guerline Mckeon MD Primary Care Provider Reason for Visit * Reason Comments Med Refill Encounter Details Date Type Department Care Team ([facility] st Contact Info) Description 04/07/2023 Refill [facility] [address] [place] [address] Constantino Quintana FNP Generalized anxiety disorder Social [...] documented as of this encounter Care Teams Lumber Sticker Relationship Specialty Start Date End Date Guerline Mckeon MD [address] [place] [address] PCP - General Family Medicine 06/06/18 documented as of this encounter
--- OUTSIDE RECORDS SUMMARY | 2024-09-08 10:51 | XMS_ITS | Encounter Summary ---
Author Organization [employer] Address [address] [facility] 7[address] [place] [address] Care Team Providers Care Operations Professional Name Role Phone Guerline Mckeon MD Primary Care Provider [phone] Encounter Details Date Type Department Care Team (Late st Contact Info) Description 09/08/2024 Orders Only GENERIC EXTERNAL DATA DEPARTMENT Provider, Generic External Data Social History Tobacco Use Types Packs/Day Years [...] on file documented as of this encounter Procedures Procedure Name Priority Date/Time Associated Diagnosis Comments URINALYSIS, COMPLETE, WITH REFLEX TO CULTURE Routine 09/08/2024 10:29 AM EDT CBC WITH AUTO DIFFERENTIAL Routine 09/08/2024 9:21 AM EDT documented in this encounter Results * (ABNORMAL) Urinalysis, Complete, with Reflex to Culture (09/08/2024 10:29 AM EDT) Color Urine Yellow [facility] Appearance Urine Clear [facility] PH 7.0 5.0 - 9.0 [facility] Glucose Urine UA Negative Negative mg/dL [facility] Urine Blood Negative Negative [facility] Specific [place] - Urine 1.010 1.005 - 1.025 [facility] Urine Protein Negative Neg-Trace mg/dL [facility] Urine Ketones Negative Negative mg/dL [facility] Nitrite Urine Negative Negative [facility] Leukocyte Esterase Urine Small (1+)(A) Negative [facility] 09/08/2024 10:2 9 AM EDT 09/08/2024 10:34 AM EDT Narrative [facility] - 09/08/2024 10:39 AM EDT [id number], Clean Catch us Generic External Data Provider LAB URINE ORDERAB LES Final Result [facility] [address] [place] [phone] * (ABNORMAL) CBC auto differential (09/08/2024 9:21 AM EDT) White Blood Count 6.3 4.8 - 10.8 X10*3/uL [facility] Red Blood Count 5.49 4.60 - 5.80 X10*6/uL [facility] Hemoglobin 17.4 14.0 - 18.0 g/dl [facility] Hematocrit 50.0 42.0 - 52.0 % [facility] Mean Corpuscular Volume 91.1 80.0 - 98.0 fL [facility] Mean Corpuscular Hemoglobin 31.7 27.0 - 33.0 pg [facility] Mean Corpuscular HGB Conc 34.8 31.0 - 36.0 g/dl [facility] Red Cell Distribution Width 11.9 11.0 - 16.0 % [facility] Platelet Count 153(L) 160 - 400 X10*3/uL [facility] Mean Platelet Volume 11.3 9.4 - 12.4 fL [facility] Neutrophils Percent Auto 56.8 45 - 73 % [facility] Imm Gran Pct Auto 0.5(H) 0.0 - 0.4 % [facility] Lymphocytes Percent Auto 32.6 20 - 40 % [facility] Monocytes Percent Auto 7.9 2 - 11 % [facility] Eosinophils Percent Auto 1.9 0 - 4 % [facility] Basophils Percent Auto 0.3 0 - 2 % [facility] NRBC Pct Auto 0.0 0.0 - 0.2 /100WBC [facility] Neutrophils Absolute Auto 3.6 2.0 - 8.3 x10*3/uL [facility] Imm Gran Abs Auto 0.03 0.00 - 0.03 X10*3/uL [facility] Lymphocytes Absolute Auto 2.1 1.2 - 4.9 X10*3/uL [facility] Monocytes Absolute Auto 0.5 0.1 - 1.2 X10*3/uL [facility] Eosinophils Absolute Auto 0.1 0.0 - 0.4 X10*3/uL [facility] Basophils Absolute Auto 0.0 0.0 - 0.2 X10*3/uL [facility] NRBC Abs Auto 0.000 0.0 - 0.012 X10*3/uL [facility] 09/08/2024 9:21 AM EDT 09/08/2024 9:24 AM EDT us Generic External Data Provider LAB BLOOD ORDERAB LES Final Result [facility] [address] [place] [phone] documented in this encounter Visit Diagnoses Not on filedocumented in this encounter Additional Health Concerns Assessment Noted Time PHQ-9 Depression Total Score: 2 12/07/19 23 9:58 AM EDT documented as of this encounter Care Teams Operations Professional Relationship Specialty Start Date End Date Guerline Mckeon MD [address] [place] [address] PCP - General Family Medicine 06/06/18 documented as of this encounter
--- OUTSIDE RECORDS SUMMARY | 2024-09-08 10:51 | XMS_ITS | Encounter Summary ---
Author Organization [employer] Address [address] [facility] 7t [place] [address] Care Team Providers Care Vocal Music Teacher Name Role Phone Guerline Mckeon MD Primary Care Provider [phone] Reason for Visit * Reason Comments Med Refill Encounter Details Date Type Department Care Team ([facility] st Contact Info) Description 03/28/2023 Refill [facility] [address] [place] [address] Constantino Quintana FNP Generalized anxiety disorder Social [...] documented as of this encounter Care Teams Vocal Music Teacher Relationship Specialty Start Date End Date Guerline Mckeon MD [address] [place] [address] PCP - General Family Medicine 06/06/18 documented as of this encounter
--- OUTSIDE RECORDS SUMMARY | 2024-09-08 10:51 | XMS_ITS | Encounter Summary ---
Author Organization [employer] Address [address] [facility] 7t [place] [address] Care Team Providers Care Assignment Editor Name Role Phone Guerline Mckeon MD Primary Care Provider [phone] Encounter Details Date Type Department Care Team (Late st Contact Info) Description 05/10/2022 Orders Only [facility] MEDICINE [address] [place] [address] Guerline Mckeon MD [address] [place], [place] [phone] Generalized anxiety disorder (Primary Dx) Social History [...] Primary documented in this encounter Care Teams Assignment Editor Relationship Specialty Start Date End Date Guerline Mckeon MD [address] [place] [address] [phone] PCP - General Family Medicine 06/06/18 documented as of this encounter
--- OUTSIDE RECORDS SUMMARY | 2024-09-08 10:51 | XMS_ITS | Encounter Summary ---
Author Organization [employer] Address 75 [facility] 7t [place] [address] Care Team Providers Care Objects Conservator Name Role Phone Guerline Mckeon MD Primary Care Provider [phone] Reason for Visit * Reason Comments Med Refill Encounter Details Date Type Department Care Team ([facility] st Contact Info) Description 04/10/2023 Refill [facility] MEDICINE 230 [place], [place] [phone] Juju Flood MD 230 [place], [place] [phone] Social History Tobacco Use Types Packs/Day Years [...] documented as of this encounter Care Teams Objects Conservator Relationship Specialty Start Date End Date Guerline Mckeon MD [address] [place] [address] PCP - General Family Medicine 06/06/18 documented as of this encounter
--- OUTSIDE RECORDS SUMMARY | 2024-09-08 10:51 | XMS_ITS | Encounter Summary ---
Author Organization [employer] Address 75 [facility] 7t [place] [address] Care Team Providers Care House Furnishings Supervisor Name Role Phone Guerline Mckeon MD Primary Care Provider [phone] Reason for Visit * Reason Comments Med Refill Encounter Details Date Type Department Care Team ([facility] st Contact Info) Description 09/24/2022 Refill [facility] MED[facility]INE [address] [place] [address] Guerline Mckeon MD [address] [place] [address] Social History Tobacco Use Types Packs/Day Years [...] documented as of this encounter Care Teams House Furnishings Supervisor Relationship Specialty Start Date End Date Guerline Mckeon MD [address] [place] [address] PCP - General Family Medicine 06/06/18 documented as of this encounter
--- OUTSIDE RECORDS SUMMARY | 2024-09-08 10:52 | XMS_ITS | Encounter Summary ---
Author Organization [employer] Address 75 [facility] 7t [place] [address] Care Team Providers Care Research Engineer Name Role Phone Guerline Mckeon MD Primary Care Provider [phone] Reason for Visit * Reason Comments Med Refill Encounter Details Date Type Department Care Team ([facility] st Contact Info) Description 04/10/2023 Refill [facility] MEDICINE 230 [place], [place] [phone] Guerline Mckeon MD 230 [place], [place] [phone] Social History Tobacco Use Types Packs/Day Years [...] documented as of this encounter Care Teams Research Engineer Relationship Specialty Start Date End Date Guerline Mckeon MD [address] [place] [address] PCP - General Family Medicine 06/06/18 documented as of this encounter
[2024-09-08 10:56] LABS: Alanine Aminotransferase 44 U/L (0-40); Albumin Level 4.1 g/dL (3.5-5.0); Alkaline Phosphatase 71 U/L (39-117); Anion Gap 10 (12-20); Aspartate Amino Transferase 30 U/L (5-37); Bilirubin Total 1.2 mg/dL (0.0-1.0); Blood Urea Nitrogen 12 mg/dL (9-16); Carbon Dioxide 26 mmol/L (22-29); Chloride 109 mmol/L (96-108); Creatinine Clr Calc Pharmacy 78.4; Estimated Glomerular Filt Rate > 60; Glucose Random 88 mg/dL (60-115); Lipase 15 U/L (8-78); Magnesium 2.1 mg/dL (1.6-2.6); Potassium 3.6 mmol/L (3.3-5.1); Sodium 141 mmol/L (135-145); Total Protein 7.2 g/dL (6.5-8.0)
[2024-09-08 13:36] VITALS: BP 147/78; PULSE 78; RESP 18; TEMP 36.4; O2SAT 97
== END 2024-09-08 13:37 | disposition home or self-care (01) ==
PROVIDERS: Physician Assistant Medical; Emergency Provider Emergency Medicine Emergency Medical Services; PCP Family Medicine
DX: K59.09 Other constipation (principal); R10.9 Unspecified abdominal pain; I10 Essential (primary) hypertension; E78.5 Hyperlipidemia, unspecified; Z79.899 Other long term (current) drug therapy
CPT/HCPCS: 36415; 74018; 80053; 81001; 83690; 83735; 85025; 87086; 99283; 99284

== ENCOUNTER → 2024-09-08 09:28 | Outpatient (BNV) | payer OTHER, SELFPAY | PROVIDERS: Emergency Provider Emergency Medicine Emergency Medical Services; PCP Family Medicine; Visit Provider Radiology Diagnostic Radiology | DX: R14.0 Abdominal distension (gaseous) (principal); K59.00 Constipation, unspecified | CPT/HCPCS: 74018 ==

== ENCOUNTER 2024-09-17 13:21 | Outpatient (AMB) | payer OTHER, SELFPAY ==
[2024-09-17 13:45] VITALS: BP 116/73; PULSE 61; BMI 33.3
--- NOTE | 2024-09-17 13:45 | A.OFFVIS_ITS ---
Vital Signs 09/17/24 13:45 Height 5 ft 5 in Weight 200 lb BMI 33.3 BP 116/73 Blood Pressure Location Lt brachial Position Sitting Pulse 61 Intake Visit Reasons: ED F/U Abd pain Intake Note: Luis Fernando presents in the office as an ED follow up abdominal pains. CC: Was seen in the ED due to issues with his stomach and this is a follow up. Pains in the RUQ and having constipation. Medication is not helping and he gets very inflamed in the RUQ as well. 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 He is requesting pain medications so that he can not eat for a full week- Previously seen by Ms. Currys-09/2018 Seen in ED for abdominal pain- 07/31/2019 and 01/2020 came back to ED 10/2020--for RUq pain, had w/u which was negative incl CT--only revealed enlarged prostate with calcification I gave him flagyl due to ongoing issues with bloating TESTS: Labs show a normal white count, slight decline in platelets, normal liver enzymes CT-07/31/2019--enlarged prstate, no masses CT 01/2020-- no acute findings US 01/2020--kidney cyst, nml liver, no masses GES 09/2020--rapid gastric emptying (report calls it as normal) endoscopies: Colonoscopy- 2011- Dr. Moreau Recommended 5 year follow-up due to inadequate prep. Colonoscopy 07/2017-[facility] Dr. Hercules Stool in the whole colon. Recommended stool softeners. Recommended a repeat colonoscopy in 1 year. 05/2018- EGD-with bx- Dr. Moreau--gastritis, mild to moderate, h pylori neg EGD 05/25--gastritis hiatal hernia possible barretts lax LES EGD/colonoscopy 12/2021- Endoscopy Findings: hiatal hernia lax LES gastritis tight pyloric outlet irregular z line Colonoscopy Findings: polyp internal hemorrhoids diverticular disease path: lymphoid aggregate other bx nml INTERIM: he noted ruq pain and discomfort he feels constipated and this is making him the pain he cant say if apssing stool helps the pain tried lactulose and fiber appetite is good no blood in stool no nausea or vomiting PCP ordered US< labs with mild raised LFT KUB with mild constipation EXAM: GENERAL: The patient is well developed and nontoxic. VITAL SIGNS:see workflow HEENT: Nonicteric sclerae, PERRLA, EOMI. Oropharynx clear. Moist mucous membranes. Conjunctivae appear well perfused. No thyroid mass. CHEST: Chest wall is nontender. HEART: Regular rate and rhythm without murmurs. LUNGS: Clear to auscultation bilaterally. ABDOMEN: Soft, positive bowel sounds, nontender, no organomegaly, tender right flank and ruq --no guarding SKIN: No rash, no excessive bruising, petechiae, or purpura. NEUROLOGIC: Cranial nerves II-XII intact without motor/sensory deficit. Psych-- normal Assessments 1. rapid gastric emptying--better 2. constipation, slow transit, maybe related to meds--controlled 3. GERD with lax LES--not an issue 4. ruq pain, possibly from constipation, US awaiting PLAN: 1/ cont with PPI 2/ cont with miralax 3/ try mid dose linaclotide, maybe bentyl as well 4/ await u[facility] Medical History Abdominal wall pain Hemorrhoids Incisional pain Internal hemorrhoids with complication Dyslipidemia Congenital cystic kidney disease Chronic abdominal pain Allergic rhinitis Chronic back pain Constipation GERD (gastroesophageal reflux disease) Anxiety BPH (benign prostatic hyperplasia) HTN (hypertension) Metabolic syndrome Overweight DUNIA (obstructive sleep apnea) Surgical History H/O abdominal surgery History of esophagogastroduodenoscopy (EGD) H/O colonoscopy H/O hemorrhoidectomy H/O hernia repair Social History Household Members: None Alcohol intake: never Patient Tobacco Use Status: Never used Tobacco Second Hand Smoke Exposure: No Current occupational status: unemployed Physical Exam Vital Signs: Last Vital Signs Pulse 61 09/17/24 13:45 BP 116/73 09/17/24 13:45 BMI result Body Mass Index 33.3 Assessment & Plan Assessment & Plan (1) RUQ abdominal pain: Code(s): R10.11 - Right upper quadrant pain Category: Medical Plan: as above Medications: New linaclotide 145 mcg PO DAILY 30 caps 2RF Coding Level of Care Code Est Pt Level 3 (86410) Diagnoses RUQ abdominal pain R10.11
--- OUTSIDE RECORDS SUMMARY | 2024-09-17 15:23 | XMS_ITS | Encounter Summary ---
Author Organization [employer] Address 75 [facility] 7t [place] [address] Care Team Providers Care Gang Boss Name Role Phone Guerline Mckeon MD Primary Care Provider [phone] Reason for Visit * Reason Comments Med Refill Encounter Details Date Type Department Care Team ([facility] st Contact Info) Description 04/10/2023 Refill [facility] MEDICINE 230 [place], [place] [phone] Guerline Mckeon MD 230 [place], [place] [phone] Social History Tobacco Use Types Packs/Day Years [...] documented as of this encounter Care Teams Gang Boss Relationship Specialty Start Date End Date Guerline Mckeon MD [address] [place] [phone] PCP - General Family Medicine 06/06/18 documented as of this encounter
--- OUTSIDE RECORDS SUMMARY | 2024-09-17 15:23 | XMS_ITS | Encounter Summary ---
Author Organization [employer] Address 75 [facility] 7t [place] [address] Care Team Providers Care Rubber Flap Tuber Machine Operator Name Role Phone Guerline Mckeon MD Primary Care Provider [phone] Reason for Visit * Reason Comments Med Refill Encounter Details Date Type Department Care Team ([facility] st Contact Info) Description 04/10/2023 Refill [facility] MEDICINE 230 [place], [place] [phone] Juju Flood MD 230 [place], [place] [phone] Social History Tobacco Use Types Packs/Day Years [...] documented as of this encounter Care Teams Rubber Flap Tuber Machine Operator Relationship Specialty Start Date End Date Guerline Mckeon MD [address] [place] [id number] PCP - General Family Medicine 06/06/18 documented as of this encounter
--- OUTSIDE RECORDS SUMMARY | 2024-09-17 15:23 | XMS_ITS | Encounter Summary ---
Author Organization [employer] Address 75 [facility] 7t [place] [address] Care Team Providers Care Acetone Button Paster Name Role Phone Guerline Mckeon MD Primary Care Provider [phone] Reason for Visit * Reason Comments Med Refill Encounter Details Date Type Department Care Team ([facility] st Contact Info) Description 04/07/2023 Refill [facility] MEDICINE [address] [place] [address] Constantino Quintana FNP Generalized anxiety disorder Social [...] documented as of this encounter Care Teams Acetone Button Paster Relationship Specialty Start Date End Date Guerline Mckeon MD [address] [place] [address] PCP - General Family Medicine 06/06/18 documented as of this encounter
--- OUTSIDE RECORDS SUMMARY | 2024-09-17 15:23 | XMS_ITS | Encounter Summary ---
Author Organization [employer] Address 75 [facility] 7t [place] [address] Care Team Providers Care Pharmacy Operations Specialist Name Role Phone Guerline Mckeon MD Primary Care Provider [phone] Reason for Visit * Reason Comments Med Refill Encounter Details Date Type Department Care Team ([facility] st Contact Info) Description 03/28/2023 Refill [facility] MEDICINE [address] [place] [address] Constantino Quintana FNP Generalized anxiety disorder Social [...] documented as of this encounter Care Teams Pharmacy Operations Specialist Relationship Specialty Start Date End Date Guerline Mckeon MD 230 [place] [address] PCP - General Family Medicine 06/06/18 documented as of this encounter
--- OUTSIDE RECORDS SUMMARY | 2024-09-17 15:23 | XMS_ITS | Encounter Summary ---
Author Organization [employer] Address 75 [facility] 7t [place] [address] Care Team Providers Care Unit Director Name Role Phone Guerline Mckeon MD Primary Care Provider [phone] Reason for Visit * Reason Comments Med Refill Encounter Details Date Type Department Care Team ([facility] st Contact Info) Description 09/24/2022 Refill [facility] MEDICINE [address] [place] [address] Guerline Mckeon MD [address] [place] [address] Social History Tobacco Use Types Packs/Day Years [...] documented as of this encounter Care Teams Unit Director Relationship Specialty Start Date End Date Guerline Mckeon MD [address] [place] [address] PCP - General Family Medicine 06/06/18 documented as of this encounter
--- OUTSIDE RECORDS SUMMARY | 2024-09-17 15:23 | XMS_ITS | Encounter Summary ---
Author Organization [employer] Address 75 [facility] 7t [place] [address] Care Team Providers Care Profile Shaper Operator Name Role Phone Guerline Mckeon MD Primary Care Provider [phone] Reason for Visit * Reason Comments Med Refill Encounter Details Date Type Department Care Team ([facility] st Contact Info) Description 02/07/2024 Refill [facility] MEDICINE 230 [place], [place] [phone] Guerline Mckeon MD [address] [place], [place] [phone] Generalized anxiety disorder Social History Tobacco Use [...] documented as of this encounter Care Teams Profile Shaper Operator Relationship Specialty Start Date End Date Guerline Mckeon MD [address] [place] [id number] PCP - General Family Medicine 06/06/18 documented as of this encounter
--- OUTSIDE RECORDS SUMMARY | 2024-09-17 15:23 | XMS_ITS | Encounter Summary ---
Author Organization [employer] Address 75 [facility] 7t [place] [address] Care Team Providers Care Solid Tire Finisher Name Role Phone Guerline Mckeon MD Primary Care Provider [phone] Reason for Visit * Reason Comments Med Refill Encounter Details Date Type Department Care Team ([facility] st Contact Info) Description 07/29/2023 Refill [facility] [address] [place], [place] [phone] Guerline Mckeon MD [address] [facility] [place], [place] [phone] Generalized anxiety disorder Social History Tobacco Use [...] documented as of this encounter Care Teams Solid Tire Finisher Relationship Specialty Start Date End Date Guerline Mckeon MD 230 [place] [address] PCP - General Family Medicine 06/06/18 documented as of this encounter
--- OUTSIDE RECORDS SUMMARY | 2024-09-17 15:23 | XMS_ITS | Encounter Summary ---
Author Organization [employer] Address 75 [facility] 7t [place] [address] Care Team Providers Care Belt Puncher Name Role Phone Guerline Mckeon MD Primary Care Provider [phone] Encounter Details Date Type Department Care Team (Late st Contact Info) Description 05/10/2022 Orders Only [facility] MEDICINE [address] [place] [address] Guerline Mckeon MD 230 [place], [place] [phone] Generalized anxiety disorder (Primary Dx) Social History [...] Primary documented in this encounter Care Teams Belt Puncher Relationship Specialty Start Date End Date Guerline Mckeon MD [address] [place] [address] [phone] PCP - General Family Medicine 06/06/18 documented as of this encounter
--- OUTSIDE RECORDS SUMMARY | 2024-09-17 15:23 | XMS_ITS | Clinical Summary ---
Author Organization [facility] Address [address] [facility] 7[address] [place] [address] Care Team Providers Care Cryptographic Clerk Name Role Phone Guerline Mckeon MD Primary Care Provider [phone] Allergies No known active allergies Medications * [...] 04/30/20 24 Active sildenafil (Viagra) 50 MG tabletIndication s:Generalized anxiety disorder TAKE 1 TABLET 1 HOUR BEFORE SEXUAL RELATIONS ONCE DAILY NEEDED. 10 tablet 3 05/11/20 24 Active clonazePAM (KlonoPIN) 1 MG tabletIndication s:Generalized anxiety disorder TAKE 1 TABLET BY MOUTH [...] CONSTIPATION 369 g 3 06/14/19 25 Active Additional Information Patient not taking.Reported on 09/10/2024 tamsulosin (Flomax) 0.4 MG 24 hr capsule TAKE 1 CAPSULE EVERY MORNING 30 capsule 3 07/02/19 25 Active lactulose (Chronulac) 10 GM/15ML solutionIndicati ons:Constipation , unspecified constipation type Take 15 mL (10 g) by mouth 2 times daily. 150 mL 09/11/19 25 025 Active docusate sodium (Colace) 100 MG capsuleIndicatio ns:Constipation, unspecified constipation type Take 1 tab po bid prn constipation 60 capsule 3 09/11/19 25 Active Active Problems Problem Noted Date Diagnosed [...] EST): Symptoms described seems vertigo from description [place] -Hallpike maneuver is neg for nystagmus but [...] (10/17/2023 8:55 PM EDT): - following with [facility] - continue oxybutynin and nortriptyline Assessment & Plan (03/13/2023 6:08 AM EDT): - following with [facility] - continue oxybutynin and nortriptyline JONATHAN [...] current treatement plan. -Pt was seen by [facility] for second opinion previously and was given reassurance that there is no surgical indication at this time. Recently started seeing [facility], last seen in Feb 2024. Scheduled for EGD in September 2024 -extensive evaluation and treatment provided by [facility], last seen in August 2022 -seen by [...] current treatement plan. -Pt was seen by [facility] for second opinion previously and was given reassurance that there is no surgical indication at this time -extensive evaluation and treatment provided by [facility], last seen in August 2022 -seen by [...] current treatement plan. -Pt was seen by [facility] for second opinion previously and was given reassurance that there is no surgical indication at this time -extensive evaluation and treatment provided by [facility], last seen in August 2022 -seen [...] current treatement plan. -Pt was seen by [facility] for second opinion previously and [...] (06/05/2024 12:34 PM EST): - following with [facility] - continue tamsulosin Assessment & Plan (10/17/2023 8:55 PM EDT): [facility] Assessment & Plan (03/13/2023 6:06 AM EDT): - following with [facility] - continue tamsulosin Chronic back pain 03/16/2012 Assessment & Plan (10/22/2023 6:23 AM EDT): - pt does not want to take many medications, especially oral medication - prescribed lidocaine patch, but patient self-discontinued Assessment & Plan (03/13/2023 6:12 AM EDT): - pt does not want to take many medications, especially oral medication - will prescribe lidoderm patch Constipation 03/16/2012 Assessment & Plan (09/11/2024 4:59 AM EDT): Pt w reporte chronic fulness sensation in his RUQ ,denies actual pain and now constipation w thin stools From PCP previous notes - Abdominal CT in October 2020 showed enlarged prostate -Normal US in November 2020 -s/p EGD/Colonoscopy on 12/17/21; benign pathology and cont current treatement plan. 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 appointment in January with Dr. Hoda Fragoso. Patient still concerned that its too far out. GI office did advised they will try and call the Patient with sooner appointment if possible -explained pt that will need to see GI may need to repeat colonoscopy -referred today for abd US specially to jasmin DC w chronic fullness sensation - If neg and symptoms persisit may need to consider to repeat CT abd image -advised to f up w PCP in next 4 weeks Assessment & Plan (10/18/2023 9:28 AM EDT): - continue fiber-rich diet Assessment & Plan (03/13/2023 6:04 AM EDT): - continue fiber-rich diet Gastroesophageal reflux disease 03/16/2012 Assessment & Plan (06/15/2024 12:10 PM EST): GI specialist: [facility], last seen in August 2022 seen by [facility] in the past per pt's request [...] Plan (10/18/2023 9:28 AM EDT): GI specialist: [facility], last seen in August 2022 seen by [facility] in the past per pt's request [...] Plan (03/13/2023 6:04 AM EDT): GI specialist: [facility], last seen in August 2022 seen by [facility] in the past per pt's request [...] Plan (09/20/2022 12:30 PM EDT): GI specialist: [facility], last seen in August 2022 seen by [facility] in the past per pt's request [...] Encounters Date Type Department Care Team Description 09/10/2024 1:00 PM EDT Office Visit [facility] [address] [place] [phone] Rosibel Cantor MD RUQ pain (Primary Dx); Constipation, unspecified constipation type 09/10/2024 Travel 09/10/2024 Telephone [facility] [address] [place] [address] Guerline Mckeon MD ER Follow-up 09/08/2024 Orders Only GENERIC EXTERNAL DATA DEPARTMENT Provider, Generic External Data 09/07/2024 Telephone [facility] [address] [place] [address] Guerline Mckeon MD Results 07/01/2024 Refill [facility] [address], [place] [phone] Guerline Mckeon MD from Last 3 Months [...] Sign Reading Time Taken Comments Blood Pressure 130/86 09/10/2024 1:16 PM EDT Pulse 74 09/10/2024 1:16 PM EDT Temperature 36.3 ??C (97.4 ??F) 09/10/2024 1:16 PM ED T Respiratory Rate 20 09/10/2024 1:16 PM EDT Oxygen Saturation 98% 09/10/2024 1:16 PM EDT Inhaled Oxygen Concentration - - Weight 91.8 kg (202 lb 6.4 oz) 09/10/2024 1:16 P M EDT Height 165.1 cm (5' 5 ) 09/10/2024 1:16 PM EDT Body Mass Index 33.68 09/10/2024 1:16 PM EDT Plan of Treatment Health Maintenance Due Date Last Done Comments CT Colonography 1961 FIT DNA/Cologuard 1960 FIT 1960 FOBT 1960 Sigmoidoscopy 1960 Alcohol/Substance Use Screening 1973 Pneumococcal Vaccine: 50+ Years (1 of 1 - PCV) 2011 Depression Screening 12/07/2023 12/06/2022, 12/07/19 COVID-19 Vaccine ( season) 2024 03/07/2023, 12/23/2021, 06/24/2021, Additional history exists SDOH Screening 07/04/2024 07/04/2023 Tobacco Screening 09/10/2025 09/10/2024 Lipid Panel 07/26/2029 07/26/2024, 02/0 01/2024, 09/08/2022, Additional history exists DTaP/Tdap/Td Vaccines (3 [...] Procedure Name Priority Date/Time Associated Diagnosis Comments XR KUB AND UPRIGHT 2 VIEWS Routine 09/08/2024 11:27 AM EDT URINALYSIS, COMPLETE, WITH REFLEX TO CULTURE Routine 09/08/2024 10:29 AM EDT LIPASE Routine 09/08/2024 9:21 AM EDT MAGNESIUM Routine 09/08/2024 9:21 AM EDT COMPREHENSIVE METABOLIC PANEL Routine 09/08/2024 9:21 AM EDT CBC WITH AUTO DIFFERENTIAL Routine 09/08/2024 9:21 AM EDT CULTURE, URINE, ROUTINE Routine 09/08/2024 12:00 AM EDT LIPID PANEL WITH REFLEX TO [...] Recently Relevant to Health Maintenance Results * XR KUB and Upright 2 Views (09/08/2024 11:27 AM EDT) Anatomical Region Laterality Modality Radiographic Siomara ging 09/08/2024 11:2 7 AM EDT Narrative 09/08/2024 11:29 AM EDT ? [facility] ?[address] ?[place] [address] ?XRay Report ? Signed ? Patient: Marcelo,Luis Fernando ?MR#: [id number] ?? 26 ? : 1960 ?Acct:[id number] ? Age/Sex: 64 / M ?ADM Date: 04/05/25 ? Loc: HO.ED ? Attending Dr: ? Ordering Physician: Audrey Erazo MD ?? Date of Service: 09/08/24 ?? Procedure(s): XR KUB ?? Accession Number(s): [id number] ? cc: Audrey Erazo MD; Guerline Mckeon MD ? CLINICAL HISTORY: constipation ? Radiograph of the abdomen 1 view ? Comparison: None ? Findings: ?? A total of 4 films were obtained. ?? No abnormal bowel dilatation. ?? There is a mild amount of retained stool in the colon. ?? No radiopaque foreign body. ?? No radiopaque renal or ureteral calculus. ?? No acute osseous abnormality. ? Impression: ?? 1. Nonspecific and nonobstructive bowel gas pattern. ?? 2. Mild colonic stool burden. ? This document has been electronically signed by: Rossana Last, DO on ?? 09/08/2024 11:27:59 ? Dictated By: ?Rossana Last MD ? Signed By: ?<Electronically signed by Rossana Last MD in OV> ?09/08/24 1129 ? DD/ 26 ? TD/TT: 09/08/241126 ? Foundation Coordinator: ? Procedure Note Donmignonter, Image - 09/08/2024 [place] [address] XRay Report Signed Patient: Luis Fernando MarceloMR#: [id number] 26 : 1960cct:[id number] Age/Sex: 64 / MADM Date: 09/08/24 Loc: HO.ED Attending Dr: Ordering Physician: Audrey Erazo MD Date of Service: 09/08/24 Procedure(s): XR KUB Accession Number(s): [id number] cc: Audrey Erazo MD; Guerline Mckeon MD CLINICAL HISTORY: constipation Radiograph of the abdomen 1 view Comparison: None Findings: A total of 4 films were obtained. No abnormal bowel dilatation. There is a mild amount of retained stool in the colon. No radiopaque foreign body. No radiopaque renal or ureteral calculus. No acute osseous abnormality. Impression: 1. Nonspecific and nonobstructive bowel gas pattern. 2. Mild colonic stool burden. This document has been electronically signed by: Rossana Last DO on 09/08/2024 11:27:59 Dictated By: Rossana Last MD Signed By: <Electronically signed by Rossana Last MD in OV> 09/08/24 1129 DD/ 26 TD/TT: 09/08/241126 Foundation Coordinator: [facility] External Provider IMG XR PROCEDURES Edited Result - Final * (ABNORMAL) Urinalysis, Complete, with Reflex to Culture (09/08/2024 10:29 AM EDT) Color Urine Yellow [facility] Appearance Urine Clear [facility] PH 7.0 5.0 - 9.0 [facility] Glucose Urine UA Negative Negative mg/dL [facility] Urine Blood Negative Negative [facility] Specific Nova - Urine 1.010 1.005 - 1.025 [facility] Urine Protein Negative Neg-Trace mg/dL [facility] Urine Ketones Negative Negative mg/dL [facility] Nitrite Urine Negative Negative [facility] Leukocyte Esterase Urine Small (1+)(A) Negative [facility] RBC Urine 0-2 0 - 2 /HPF [facility] Urine WBC 0-5 0 - 5 /HPF [facility] Urine Squamous Epithelial Cell 0-2 0 - 2 /HPF [facility] Urine Bacteria None Seen None Seen [facility] Hyaline Casts, Urine 0-2 0 - 2 /LPF [facility] 09/08/2024 10:2 9 AM EDT 09/08/2024 10:34 AM EDT Narrative [facility] - 09/08/2024 10:51 AM EDT [id number], Clean Catch Generic External Data Provider LAB URINE ORDERAB LES Final Result [facility] [address] [place] [address] [phone] * (ABNORMAL) CBC auto differential (09/08/2024 9:21 AM EDT) Only the most recent of2 resultswithin the time period is included. White Blood Count 6.3 4.8 - 10.8 X10*3/uL [facility] Red Blood Count 5.49 4.60 - 5.80 X10*6/uL [facility] Hemoglobin 17.4 14.0 - 18.0 g/dl [facility] Hematocrit 50.0 42.0 - 52.0 % [facility] Mean Corpuscular Volume 91.1 80.0 - 98.0 fL [facility] Mean Corpuscular Hemoglobin 31.7 27.0 - 33.0 pg [facility] Mean Corpuscular HGB Conc 34.8 31.0 - 36.0 g/dl [facility] Red Cell Distribution Width 11.9 11.0 - 16.0 % [facility] Platelet Count 153(L) 160 - 400 X10*3/uL [facility] Mean Platelet Volume 11.3 9.4 - 12.4 fL [facility] Neutrophils Percent Auto 56.8 45 - 73 % [facility] Imm Gran Pct Auto 0.5(H) 0.0 - 0.4 % [facility] Lymphocytes Percent Auto 32.6 20 - 40 % [facility] Monocytes Percent Auto 7.9 2 - 11 % [facility] Eosinophils Percent Auto 1.9 0 - 4 % [facility] Basophils Percent Auto 0.3 0 - 2 % [facility] NRBC Pct Auto 0.0 0.0 - 0.2 /100WBC [facility] Neutrophils Absolute Auto 3.6 2.0 - 8.3 x10*3/uL [facility] Imm Gran Abs Auto 0.03 0.00 - 0.03 X10*3/uL [facility] Lymphocytes Absolute Auto 2.1 1.2 - 4.9 X10*3/uL [facility] Monocytes Absolute Auto 0.5 0.1 - 1.2 X10*3/uL [facility] Eosinophils Absolute Auto 0.1 0.0 - 0.4 X10*3/uL [facility] Basophils Absolute Auto 0.0 0.0 - 0.2 X10*3/uL [facility] NRBC Abs Auto 0.000 0.0 - 0.012 X10*3/uL [facility] 09/08/2024 9:21 AM EDT 09/08/2024 9:24 AM EDT us Generic External Data Provider LAB BLOOD ORDERAB LES Final Result Performing Organization Address [facility] Co de Phone Number [facility] [address] [place] [phone] * Magnesium (09/08/2024 9:21 AM EDT) Pathologist [facility] Magnesium 2.1 1.6 - 2.6 mg/dL [facility] 09/08/2024 9:21 AM EDT 09/08/2024 10:41 AM EDT us Generic External Data Provider LAB BLOOD ORDERAB LES Final Result Performing Organization Address [facility] Co de Phone Number [facility] [address] [place] [phone] * Lipase (09/08/2024 9:21 AM EDT) Pathologist [facility] Lipase 15 8 - 78 U/L [facility] 09/08/2024 9:21 AM EDT 09/08/2024 10:41 AM EDT us Generic External Data Provider LAB BLOOD ORDERAB LES Final Result Performing Organization Address [facility] Phone Number [facility] [address] [place] [phone] * (ABNORMAL) Comprehensive Metabolic Panel (09/08/2024 9:21 AM EDT) Only the most recent of2 resultswithin the time period is included. Pathologist [facility] Sodium 141 135 - 145 mmol/L [facility] Potassium 3.6 3.3 - 5.1 mmol/L [facility] Chloride 109(H) 96 - 108 mmol/L [facility] Carbon Dioxide 26 22 - 29 mmol/L [facility] Anion Gap 10(L) 12 - 20 [facility] Urea Nitrogen (BUN) 12 9 - 16 mg/dL [facility] Creatinine, Serum 1.00 0.5 - 1.4 mg/dL [facility] Creatinine Clr Calc Pharmacy 78.4 [facility] Comment:eGFR (calculated fro m the MDRD study equation) and eCrCl(calculated from the Cockcroft-Gault equation) are based ondifferent parameters and may not yield comparable results.If eCrCl result is absurd, please check patient'sheight/weight. Estimated Glomerular Filt Rate >60 [facility] Comment:Chronic Kidney Disea se: Estimated GFR < 60 mL/min/1.17r4Cwyjgv Kidney Disease: Estimated GFR < 15 mL/min/1.73m2 Glucose 88 60 - 115 mg/dL [facility] Calcium 9.0 8.4 - 10.2 mg/dL [facility] Bilirubin, Total 1.2(H) 0.0 - 1.0 mg/dL [facility] Aspartate Amino Transferase 30 5 - 37 U/L [facility] Alanine Aminotransferase 44(H) 0 - 40 U/L [facility] Total Protein 7.2 6.5 - 8.0 g/dL [facility] Albumin Level 4.1 3.5 - 5.0 g/dL [facility] Alkaline Phosphatase 71 39 - 117 U/L [facility] 09/08/2024 9:21 AM EDT 09/08/2024 10:41 AM EDT us Generic External Data Provider LAB BLOOD ORDERAB LES Final Result [facility] [address] [place] [phone] * Culture, Urine, Routine (09/08/2024 12:00 AM EDT) Urine Urine specimen obtained by clean catch procedure / Unknown 09/08/2024 09/08/2024 Comment:UACC Narrative [facility] - 09/09/2024 11:18 AM EDT Urine Culture No growth. Specimen Source: Urine clean catch us Generic External Data Provider LAB MICROBIOLOGY - GENERAL ORDERABLES Final Result Performing Organization Address [facility] Co de Phone Number [facility] [address] [place] [phone] * Pathologist Review Of Peripheral Smear (07/26/2024 8:14 AM EST) Pathologist Review - CBC SEE NOTE [facility] Comment:Peripheral blood yovani ments are normal appearing.- Felix Yost M.D. Pathology Blood Venous blood specimen / Unknown 07/26/2024 8:14 AM EST 07/26/2024 11:36 AM EST us Guerline Mckeon MD LAB BLOOD ORDERABLES Final Resul t Performing Organization Address [facility] Co de Phone Number [facility] [address] [place] [phone] * TSH with Reflex to Free T4 (07/26/2024 8:14 AM EST) TSH reflex Free T4 1.36 0.32 - 4.0 uIU/mL [facility] Blood 07/26/2024 8:14 AM EST 07/26/2024 11:36 AM EST us Guerline Mckeon MD LAB BLOOD ORDERABLES Final Resul t Performing Organization Address [facility] Co de Phone Number [facility] [address] [place] [phone] * (ABNORMAL) Lipid Panel with Reflex to Direct LDL (07/26/2024 8:14 AM EST) Triglycerides 118 <150 mg/dL [facility] Comment:Desirable Triglyceri de: less than 150 mg/dLBorderline High Triglyceride 150-199 mg/dLHigh Triglyceride: 200-499 mg/dLVery High Triglyceride: greater than or equal to 5OO mg/dL Cholesterol 166 <200 mg/dL [facility] Comment:Desirable Cholestero l: less than 200 mg/dLBorderline High Cholesterol: 200-239 mg/dLHigh Cholesterol: greater than 239 mg/dL LDL Cholesterol Calculated 108(H) <100 mg/dL [facility] Comment:Desirable LDL: less than 100 mg/dLNear Optimal/Above Optimal LDL: 110- 129 mg/dLBorderline High LDL: 130-159 mg/dLHigh LDL: 160-189 mg/dLVery High LDL: greater than or equal to 190 mg/dL HDL Cholesterol 35(L) >40 mg/dL [facility] Comment:Desirable HDL: great er than 40 mg/dL Note: This HDL assay may give artificially low results in patients with liver disease. Blood 07/26/2024 8:14 AM EST 07/26/2024 11:36 AM EST Guerline Mckeon MD LAB BLOOD ORDERABLES Final Resul t Performing Organization Address [facility] Co de Phone Number [facility] [address] [place] [phone] * Erythropoietin (07/26/2024 8:14 AM EST) Erythropoietin 9.9 2.6 - 18.5 mIU/mL [facility] Comment:THIS TEST WAS PERFOR MED AT:[facility] [place] [phone] TALAMANTES MD Blood Venous blood specimen / Unknown 07/26/2024 8:14 AM EST 07/26/2024 11:36 AM EST us Guerline Mckeon MD LAB BLOOD ORDERABLES Final Resul t Performing Organization Address [facility] Co de Phone Number [facility] [address] [place] [phone] * Hemoglobin A1c (07/26/2024 8:14 AM EST) Hemoglobin A1c 5.3 <6.0 % [facility] Comment:Hemoglobin A1C Refer ence Range Adults: 4.8 - 6.0 % Non diabetic: < 6.0 % Goal: < 7.0 %Additional Action Suggested: > 8.0 %Note: Hemoglobin A1c results are invalid for patients with abnormal amounts of HbF. Blood transfusions may impact the HbA1c concentration in the patient sample. Estimated Average Glucose 105 mg/dL [facility] Comment:eAG = Estimated ave rage glucose which is %A1C expressed asaverage glucose, using the formula of the A5V-CawgwzqGgkeybw Glucose study (ADAG), Diabetes Care, Vol.31,#8,Jan. 2007 Blood Venous blood specimen / Unknown 07/26/2024 8:14 AM EST 07/26/2024 11:36 AM EST Guerline Mckeon MD LAB BLOOD ORDERABLES Final Resul t [facility] [address] [place] [phone] * Colonoscopy (12/17/2021) Colonoscopy Normal Normal 12/17/2021 Historical Provider HEALTH MAINTENANCE Edited Result - Final from Last 3 Months or Most Recently Relevant to Health Maintenance Insurance [facility] Care Teams Cryptographic Clerk Relationship Specialty Start Date End Date Guerline Mckeon MD [address] [place] [phone] PCP - General Family Medicine 06/06/18
== END 2024-09-17 14:21 | disposition home or self-care (01) ==
PROVIDERS: PCP Family Medicine; Visit Provider Internal Medicine Gastroenterology
DX: R10.11 Right upper quadrant pain (principal)
CPT/HCPCS: 99213

== ENCOUNTER → 2024-09-17 13:21 | Outpatient (BNVA) | payer OTHER, SELFPAY | PROVIDERS: PCP Family Medicine; Visit Provider Internal Medicine Gastroenterology | DX: K59.00 Constipation, unspecified (principal); R10.11 Right upper quadrant pain | CPT/HCPCS: 99212 ==

== ENCOUNTER 2024-10-23 08:35 | Outpatient (REF) | payer OTHER, SELFPAY ==
--- NOTE | ~2024-10-23 | US_ITS ---
CLINICAL HISTORY: ptwith chronic RUQ discomfort and ongoing constipation US abdomen complete with color Doppler Comparison: CR - XR KUB - 09/08/24 09:[address]/REG/SR - CT ABDOMEN PELVIS WO IV CON - 01/28/23 10:03 EDT Findings: The visualized pancreas, aorta, and inferior vena cava are unremarkable. Liver normal size and is mildly echogenic cm length. No focal hepatic masses. Common duct not well demonstrated Physiologic distention of the gallbladder. No gallstones or sludge. No gallbladder wall thickening. No pericholecystic fluid. No sonographic Benton sign. Main portal vein antegrade. Right kidney normal size, 11.0 cm in length. Normal cortical width and echotexture. No solid or cystic renal masses. No nephrolithiasis. No hydronephrosis. Left kidney normal, 10.5 cm in length. Normal cortical width and echotexture. No solid renal masses. Benign renal cortical cyst upper pole measuring 3.0 x 2.7 x 2.7 cm. No nephrolithiasis. No hydronephrosis. Spleen measures 10.9 cm. No splenic masses. No ascites. No lymphadenopathy. Impression: 1. Hepatic steatosis. 2. Normal gallbladder. Common bile duct not well demonstrated. This document has been electronically signed by: Yaron Bull MD on 10/23/2024 10:30:29
--- OUTSIDE RECORDS SUMMARY | 2024-10-23 08:47 | XMS_ITS | Encounter Summary ---
Author Organization [facility] Address [address] [place] [address] Care Team Providers Care Bell Captain Name Role Phone Guerline Mckeon MD Primary Care Provider [phone] Reason for Visit * Reason Comments Med Refill Encounter Details Date Type Department Care Team (Late st Contact Info) Description 09/24/2022 Refill [facility] [address] [place] [address] [phone] Guerline Mckeon MD [address], [place] [phone] Social History Tobacco Use Types Packs/Day Years [...] as of this encounter Plan of Treatment Upcoming Encounters Date Type Department Care Team (Late st Contact Info) Description 10/30/2024 9:15 AM EDT Office Visit [facility] [address] [place] [address] [phone] Guerline Mckeon MD [address], [place] [phone] documented as of this encounter Visit Diagnoses Not on filedocumented in this encounter Additional Health Concerns Assessment Noted Time PHQ-9 Depression Total Score: 5 09/09/19 23 9:50 AM EDT documented as of this encounter Care Teams Bell Captain Relationship Specialty Start Date End Date Guerline Mckeon MD [address] [place] [phone] PCP - General Family Medicine 06/06/18 documented as of this encounter
--- OUTSIDE RECORDS SUMMARY | 2024-10-23 08:47 | XMS_ITS | Encounter Summary ---
Author Organization [employer] Address [address] [facility] [facility] [address] [place] [address] Care Team Providers Care Shovel Oiler Name Role Phone Guerline Mckeon MD Primary Care Provider [phone] Reason for Visit * Reason Comments Med Refill Encounter Details Date Type Department Care Team ([facility] st Contact Info) Description 07/29/2023 Refill [facility] [address] [place], [place] [phone] Guerline Mckeon MD [address] [facility] [place], [place] [phone] Generalized anxiety disorder Social History Tobacco Use [...] Description 10/30/2024 9:15 AM EDT Office Visit [facility] [address] [place] [phone] Guerline Mckeon MD [address] [place] [phone] documented as of this encounter Visit Diagnoses Diagnosis Generalized anxiety disorder documented in this encounter Additional Health Concerns Assessment Noted Time PHQ-9 Depression Total Score: 2 12/07/19 23 9:58 AM EDT documented as of this encounter Care Teams Shovel Oiler Relationship Specialty Start Date End Date Guerline Mckeon MD [address] [place] [phone] PCP - General Family Medicine 06/06/18 documented as of this encounter
--- OUTSIDE RECORDS SUMMARY | 2024-10-23 08:47 | XMS_ITS | Encounter Summary ---
Author Organization [facility] [facility] Address [address] [facility] 7t [place] [address] Care Team Providers Care Pyrometer Temperature Regulator Name Role Phone Guerline Mckeon MD Primary Care Provider [phone] Encounter Details Date Type Department Care Team (Late st Contact Info) Description 05/10/2022 Orders Only [facility] MED[facility]INE [address] [place] [phone] Guerline Mckeon MD [address] [place] [phone] Generalized anxiety disorder (Primary Dx) Social History [...] Description 10/30/2024 9:15 AM EDT Office Visit [facility] [address] [place] [phone] Guerline Mckeon MD [address] [place] [phone] documented as of this encounter Visit Diagnoses Diagnosis Generalized anxiety disorder- Primary documented in this encounter Care Teams Pyrometer Temperature Regulator Relationship Specialty Start Date End Date Guerline Mckeon MD [address] [place] [address] [phone] PCP - General Family Medicine 06/06/18 documented as of this encounter
--- OUTSIDE RECORDS SUMMARY | 2024-10-23 08:48 | XMS_ITS | Encounter Summary ---
Author Organization [employer] Address 75 [facility] 7t [place] [address] Care Team Providers Care Spooler Operator Automatic Name Role Phone Guerline Mckeon MD Primary Care Provider [phone] Reason for Visit * Reason Comments Med Refill Encounter Details Date Type Department Care Team ([facility] st Contact Info) Description 04/10/2023 Refill [facility] MEDICINE [address] [place], [place] [phone] Guerline Mckeon MD [address] [place], [place] [phone] Social History Tobacco Use Types Packs/Day Years [...] Office Visit [facility] MED[facility]INE [address] [place] [address] Guerline Mckeon MD [address] [place], [place] [phone] documented as of this encounter Visit Diagnoses Not on filedocumented in this encounter Additional Health Concerns Assessment Noted Time PHQ-9 Depression Total Score: 2 12/07/19 23 9:58 AM EDT documented as of this encounter Care Teams Spooler Operator Automatic Relationship Specialty Start Date End Date Guerline Mckeon MD [address] [place] [phone] PCP - General Family Medicine 06/06/18 documented as of this encounter
--- OUTSIDE RECORDS SUMMARY | 2024-10-23 08:48 | XMS_ITS | Encounter Summary ---
Author Organization [employer] Address 75 [facility] 7t [place] [address] Care Team Providers Care Pool Hall Inspector Name Role Phone Guerline Mckeon MD Primary Care Provider [phone] Reason for Visit * Reason Comments Med Refill Encounter Details Date Type Department Care Team ([facility] st Contact Info) Description 02/07/2024 Refill [facility] MEDICINE [address] [place], [place] [phone] Guerline Mckeon MD [address] [place], [place] [phone] Generalized anxiety disorder Social History Tobacco Use [...] Description 10/30/2024 9:15 AM EDT Office Visit [facility] MEDICINE [address] [place] [address] Guerline Mckeon MD [address] [place] [phone] documented as of this encounter Visit Diagnoses Diagnosis Generalized anxiety disorder documented in this encounter Additional Health Concerns Assessment Noted Time PHQ-9 Depression Total Score: 2 12/07/19 23 9:58 AM EDT documented as of this encounter Care Teams Pool Hall Inspector Relationship Specialty Start Date End Date Guerline Mckeon MD [address] [place] [phone] PCP - General Family Medicine 06/06/18 documented as of this encounter
--- OUTSIDE RECORDS SUMMARY | 2024-10-23 08:48 | XMS_ITS | Encounter Summary ---
Author Organization [employer] Address 75 [facility] 7t [place] [address] Care Team Providers Care Works Manager Name Role Phone Guerline Mckeon MD Primary Care Provider Reason for Visit * Reason Comments Med Refill Encounter Details Date Type Department Care Team ([facility] st Contact Info) Description 04/07/2023 Refill [facility] MEDICINE [address] [place] [address] Constantino Quintana FNP Generalized anxiety disorder Social [...] Description 10/30/2024 9:15 AM EDT Office Visit [facility] MEDICINE [address] [place] [address] Guerline Mckeon MD [address] [place] [address] documented as of this encounter Visit Diagnoses Diagnosis Generalized anxiety disorder documented in this encounter Additional Health Concerns Assessment Noted Time PHQ-9 Depression Total Score: 2 12/07/19 23 9:58 AM EDT documented as of this encounter Care Teams Works Manager Relationship Specialty Start Date End Date Guerline Mckeon MD [address] [place] [address] PCP - General Family Medicine 06/06/18 documented as of this encounter
--- OUTSIDE RECORDS SUMMARY | 2024-10-23 08:48 | XMS_ITS | Clinical Summary ---
Author Organization [employer] Address 75 [facility] 7t [place] [address] Care Team Providers Care Box Maker Wood Name Role Phone Guerline Mckeon MD Primary Care Provider [phone] Allergies No known active allergies Medications * [...] MORNING 30 capsule 3 07/02/19 25 Active docusate sodium (Colace) 100 MG capsuleIndicatio ns:Constipation, unspecified constipation type Take 1 tab po bid prn constipation 60 capsule 3 09/11/19 Active lactulose (Chronulac) 10 GM/15ML solutionIndicati ons:Constipation , unspecified constipation type Take 15 mL (10 g) by mouth 2 times daily. 150 mL 09/11/19 25 025 Active Problems Problem Noted Date Diagnosed Date [...] EST): Symptoms described seems vertigo from description [place] -Hallpike maneuver is neg for nystagmus but did caused some mild symptoms -meclizine prn -head postion exercises explained to pt -cbc,chem,TSH today -apt w PCP 07/13/2023 -has apt schedule already---if symptoms perisist may need to consdier further testing image testing -alarm signs ns symptoms discussed w pt Neurogenic bladder 03/13/2023 Assessment & Plan (10/17/2023 8:55 PM EDT): - following with [facility] urology - continue oxybutynin and nortriptyline Assessment & Plan (03/13/2023 6:08 AM EDT): - following with [facility] urology - continue oxybutynin and [...] current treatement plan. -Pt was seen by [facility] for second opinion previously and was given reassurance that there is no surgical indication at this time. Recently started seeing [facility], last seen in Feb 2024. Scheduled for EGD in September 2024 -extensive evaluation and treatment provided by [facility], last seen in August 2022 -seen [...] current treatement plan. -Pt was seen by [facility] for second opinion previously and was given reassurance that there is no surgical indication at this time -extensive evaluation and treatment provided by [facility], last seen in August 2022 -seen [...] current treatement plan. -Pt was seen by [facility] for second opinion previously and was given reassurance that there is no surgical indication at this time -extensive evaluation and treatment provided by [facility], last seen in [...] current treatement plan. -Pt was seen by [facility] for second opinion previously and was [...] (06/05/2024 12:34 PM EST): - following with [facility] urology - continue tamsulosin Assessment & Plan (10/17/2023 8:55 PM EDT): [facility] Assessment & Plan (03/13/2023 6:06 AM EDT): - following with [facility] - continue tamsulosin Chronic back pain [...] needs to give some time to medication -java front end web developer staff assist pt getting apt at [facility]. appointment in January with Dr. [...] Plan (06/15/2024 12:10 PM EST): GI specialist: [facility], last seen in August 2022 seen by [facility] in the past per pt's [...] Plan (10/18/2023 9:28 AM EDT): GI specialist: [facility], last seen in August 2022 seen by [facility] in the past per pt's [...] Plan (03/13/2023 6:04 AM EDT): GI specialist: [facility], last seen in August 2022 seen by [facility] in the past per pt's [...] Plan (09/20/2022 12:30 PM EDT): GI specialist: [facility], last seen in August 2022 seen by [facility] in the past per pt's [...] Description 09/10/2024 1:00 PM EDT Office Visit [address] [address] Rosibel Cantor MD RUQ pain (Primary Dx); Constipation, unspecified constipation type 09/10/2024 Travel 09/10/[address] [address] Guerline Mckeon MD ER Follow-up 09/08/2024 Orders Only GENERIC EXTERNAL DATA DEPARTMENT Provider, Generic External Data 09/07/[address] [address] Guerline Mckeon MD Results from Last 3 Months Immunizations Immunization Administration Dates Next Due Influenza injectable quadriv [...] 09/10/2024 1:16 PM EDT Plan of Treatment Upcoming Encounters Date Type Department Care Team (Late st Contact Info) Description 10/30/2024 9:15 AM EDT Office Visit [facility] MEDICINE [address] [place] [address] Guerline Mckeon MD [address] [place] [address] Health Maintenance Due Date Last Done Comments CT Colonography 1961 FIT DNA/Cologuard 1961 FIT 1961 FOBT 1960 Sigmoidoscopy 1960 Disability Screening 1961 Alcohol/Substance Use Screening 1973 Pneumococcal Vaccine: [...] patient's age to complete this topic Meningococcal B Vaccine Aged Out No l onger eligible based on patient's age to complete [...] EDT Narrative 09/08/2024 11:29 AM EDT ? [facility] ?[address] ?[place] [address] ?XRay Report ? Signed ? Patient: Marcelo,Luis Fernando ?MR#: [id number] ?? 26 ? : 1960 ?Acct:[id number] ? Age/Sex: 64 / M ?ADM Date: 04/05/25 ? Loc: HO.ED ? Attending Dr: ? Ordering Physician: Audrey Erazo MD ?? Date of Service: 09/08/24 ?? Procedure(s): XR KUB ?? Accession Number(s): [id number] ? cc: Audrey Erazo MD; Guerline Mckeon [...] electronically signed by: Rossana Last DO on ?? 09/08/2024 11:27:59 ? Dictated By: ?Rossana Last MD ? Signed By: ?<Electronically signed by Rossana Last MD in OV> ?09/08/24 1129 ? DD/ 26 ? TD/TT: 09/08/241126 ? Radiophone Operator: ? Procedure Note Ruthie Garcia - 09/08/2024 [place] [address] XRay Report Signed Patient: Luis Fernando MarceloMR#: [id number] 26 : 1960cct:[id number] Age/Sex: 64 / MADM Date: 09/08/24 Loc: HO.ED Attending Dr: Ordering Physician: Audrey Erazo MD Date of Service: 09/08/24 Procedure(s): XR KUB Accession Number(s): [id number] cc: Audrey Erazo MD; Guerline Mckeon MD [...] Last MD in OV> 09/08/24 1129 DD/ 1127 TD/TT: 09/08/24 112 Radiophone Operator: [facility] External Provider IMG XR PROCEDURES Edited Result - Final * (ABNORMAL) Urinalysis, Complete, with Reflex to Culture (09/08/2024 10:29 AM EDT) Color Urine Yellow [facility] Appearance Urine Clear [facility] PH 7.0 5.0 - 9.0 [facility] Glucose Urine UA Negative Negative mg/dL [facility] Urine Blood Negative Negative [facility] Specific [place] - Urine 1.010 1.005 - 1.025 [facility] Urine Protein Negative Neg-Trace mg/dL [facility] Urine Ketones Negative Negative mg/dL [facility] Nitrite Urine Negative Negative [facility] Leukocyte Esterase Urine Small (1+)(A) Negative [facility] RBC Urine 0-2 0 - 2 /HPF [facility] Urine WBC 0-5 0 - 5 /HPF [facility] Urine Squamous Epithelial Cell 0-2 0 - 2 /HPF [facility] Urine Bacteria None Seen None Seen [facility] Hyaline Casts, Urine 0-2 0 - 2 /LPF [facility] 09/08/2024 10:2 9 AM EDT 09/08/2024 10:34 AM EDT Narrative [facility] - 09/08/2024 10:51 AM EDT [id number], Clean Catch Generic External Data Provider LAB URINE ORDERAB LES Final Result [facility] [address] [place] [phone] * (ABNORMAL) CBC auto differential (09/08/2024 9:21 AM EDT) Only the most recent of2 resultswithin the time period is included. White Blood Count 6.3 4.8 - 10.8 X10*3/uL [facility] Red Blood Count 5.49 4.60 - 5.80 X10*6/uL [facility] Hemoglobin 17.4 14.0 - 18.0 g/dl [facility] Hematocrit 50.0 42.0 - 52.0 % [facility] Mean Corpuscular Volume 91.1 80.0 - 98.0 fL [facility] Mean Corpuscular Hemoglobin 31.7 27.0 - 33.0 pg [facility] Mean Corpuscular HGB Conc 34.8 31.0 - 36.0 g/dl [facility] Red Cell Distribution Width 11.9 11.0 - 16.0 % [facility] Platelet Count 153(L) 160 - 400 X10*3/uL [facility] Mean Platelet Volume 11.3 9.4 - 12.4 fL [facility] Neutrophils Percent Auto 56.8 45 - 73 % [facility] Imm Gran Pct Auto 0.5(H) 0.0 - 0.4 % [facility] Lymphocytes Percent Auto 32.6 20 - 40 % [facility] Monocytes Percent Auto 7.9 2 - 11 % [facility] Eosinophils Percent Auto 1.9 0 - 4 % [facility] Basophils Percent Auto 0.3 0 - 2 % [facility] NRBC Pct Auto 0.0 0.0 - 0.2 /100WBC [facility] Neutrophils Absolute Auto 3.6 2.0 - 8.3 x10*3/uL [facility] Imm Gran Abs Auto 0.03 0.00 - 0.03 X10*3/uL [facility] Lymphocytes Absolute Auto 2.1 1.2 - 4.9 X10*3/uL [facility] Monocytes Absolute Auto 0.5 0.1 - 1.2 X10*3/uL [facility] Eosinophils Absolute Auto 0.1 0.0 - 0.4 X10*3/uL [facility] Basophils Absolute Auto 0.0 0.0 - 0.2 X10*3/uL [facility] NRBC Abs Auto 0.000 0.0 - 0.012 X10*3/uL [facility] 09/08/2024 9:21 AM EDT 09/08/2024 9:24 AM EDT us Generic External Data Provider LAB BLOOD ORDERAB LES Final Result Performing Organization Address City/[facility]/ZIP Co de Phone Number [facility] [address] [place] [phone] * Magnesium (09/08/2024 9:21 AM EDT) [facility] Magnesium 2.1 1.6 - 2.6 mg/dL [facility] 09/08/2024 9:21 AM EDT 09/08/2024 10:41 AM EDT us Generic External Data Provider LAB BLOOD ORDERAB LES Final Result Performing Organization Address [facility] de Phone Number [facility] [address] [place] [phone] * Lipase (09/08/2024 9:21 AM EDT) [facility] Lipase 15 8 - 78 U/L [facility] 09/08/2024 9:21 AM EDT 09/08/2024 10:41 AM EDT us Generic External Data Provider LAB BLOOD ORDERAB LES Final Result Performing Organization Address [facility] de Phone Number [facility] [address] [place] [phone] * (ABNORMAL) Comprehensive Metabolic Panel (09/08/2024 9:21 AM EDT) Only the most recent of2 resultswithin the time period is included. Pathologist [facility] Sodium 141 135 - 145 mmol/L [facility] Potassium 3.6 3.3 - 5.1 mmol/L [facility] Chloride 109(H) 96 - 108 mmol/L [facility] Carbon Dioxide 26 22 - 29 mmol/L [facility] Anion Gap 10(L) 12 - 20 [facility] Urea Nitrogen (BUN) 12 9 - 16 mg/dL [facility] Creatinine, Serum 1.00 0.5 - 1.4 mg/dL [facility] Creatinine Clr Calc Pharmacy 78.4 [facility] Comment:eGFR (calculated fro m the MDRD study equation) and eCrCl(calculated from the Cockcroft-Gault equation) are based ondifferent parameters and may not yield comparable results.If eCrCl result is absurd, please check patient'sheight/weight. Estimated Glomerular Filt Rate >60 [facility] Comment:Chronic Kidney Disea se: Estimated GFR < 60 mL/min/1.27n8Oqqzdn Kidney Disease: Estimated GFR < 15 mL/min/1.73m2 Glucose 88 60 - 115 mg/dL [facility] Calcium 9.0 8.4 - 10.2 mg/dL [facility] Bilirubin, Total 1.2(H) 0.0 - 1.0 mg/dL [facility] Aspartate Amino Transferase 30 5 - 37 U/L [facility] Alanine Aminotransferase 44(H) 0 - 40 U/L [facility] Total Protein 7.2 6.5 - 8.0 g/dL [facility] Albumin Level 4.1 3.5 - 5.0 g/dL [facility] Alkaline Phosphatase 71 39 - 117 U/L [facility] 09/08/2024 9:21 AM EDT 09/08/2024 10:41 AM EDT us Generic External Data Provider LAB BLOOD ORDERAB LES Final Result [facility] [address] [place] [phone] * Culture, Urine, Routine (09/08/2024 12:00 AM EDT) Urine Urine specimen obtained by clean catch procedure / Unknown 09/08/2024 09/08/2024 Comment:UACC Narrative [facility] - 09/09/2024 11:18 AM EDT Urine Culture No growth. Specimen Source: Urine clean catch us Generic External Data Provider LAB MICROBIOLOGY - GENERAL ORDERABLES Final Result Performing Organization Address City/[facility]/ZIP Co de Phone Number [facility] [address] [place] [phone] * Pathologist Review Of Peripheral Smear (07/26/2024 8:14 AM EST) Pathologist Review - CBC SEE NOTE [facility] Comment:Peripheral blood yovani ments are normal appearing.- Felix Yost M.D. Pathology Blood Venous blood specimen / Unknown 07/26/2024 8:14 AM EST 07/26/2024 11:36 AM EST us Guerline Mckeon MD LAB BLOOD ORDERABLES Final Resul t Performing Organization Address [facility] Co de Phone Number [facility] [address] [place] [phone] * TSH with Reflex to Free T4 (07/26/2024 8:14 AM EST) TSH reflex Free T4 1.36 0.32 - 4.0 uIU/mL [facility] Blood 07/26/2024 8:14 AM EST 07/26/2024 11:36 AM EST us Guerline Mckeon MD LAB BLOOD ORDERABLES Final Resul t Performing Organization Address [facility] Co de Phone Number [facility] [address] [place] [phone] * (ABNORMAL) Lipid Panel with Reflex to Direct LDL (07/26/2024 8:14 AM EST) Triglycerides 118 <150 mg/dL [facility] Comment:Desirable Triglyceri de: less than 150 mg/dLBorderline High Triglyceride 150-199 mg/dLHigh Triglyceride: 200-499 mg/dLVery High Triglyceride: greater than or equal to 5OO mg/dL Cholesterol 166 <200 mg/dL [facility] Comment:Desirable Cholestero l: less than 200 mg/dLBorderline High Cholesterol: 200-239 mg/dLHigh Cholesterol: greater than 239 mg/dL LDL Cholesterol Calculated 108(H) <100 mg/dL [facility] Comment:Desirable LDL: less than 100 mg/dLNear Optimal/Above Optimal LDL: 110- 129 mg/dLBorderline High LDL: 130-159 mg/dLHigh LDL: 160-189 mg/dLVery High LDL: greater than or equal to 190 mg/dL HDL Cholesterol 35(L) >40 mg/dL [facility] Comment:Desirable HDL: great er than 40 mg/dL Note: This HDL assay may give artificially low results in patients with liver disease. Blood 07/26/2024 8:14 AM EST 07/26/2024 11:36 AM EST Guerline Mckeon MD LAB BLOOD ORDERABLES Final Resul t Performing Organization Address [facility] de Phone Number [facility] [address] [place] [phone] * Erythropoietin (07/26/2024 8:14 AM EST) Erythropoietin 9.9 2.6 - 18.5 mIU/mL [facility] Comment:THIS TEST WAS PERFOR MED AT:[facility] [address] [phone] TALAMANTES MD Blood Venous blood specimen / Unknown 07/26/2024 8:14 AM EST 07/26/2024 11:36 AM EST Guerline Mckeon MD LAB BLOOD ORDERABLES Final Resul t Performing Organization Address City/[facility] Co de Phone Number [facility] [address] [place] [phone] * Hemoglobin A1c (07/26/2024 8:14 AM EST) Hemoglobin A1c 5.3 <6.0 % [facility] Comment:Hemoglobin A1C Refer ence Range Adults: 4.8 - 6.0 % Non diabetic: < 6.0 % Goal: < 7.0 %Additional Action Suggested: > 8.0 %Note: Hemoglobin A1c results are invalid for patients with abnormal amounts of HbF. Blood transfusions may impact the HbA1c concentration in the patient sample. Estimated Average Glucose 105 mg/dL [facility] Comment:eAG = Estimated ave rage glucose which is %A1C expressed asaverage glucose, using the formula of the L2L-IshhcmlHxhtxyf Glucose study (ADAG), Diabetes Care, Vol.31,#8,2007 Blood Venous blood specimen / Unknown 07/26/2024 8:14 AM EST 07/26/2024 11:36 AM EST Guerline Mckeon MD LAB BLOOD ORDERABLES Final Resul t [facility] [address] [place] [phone] * Hm Colonoscopy (12/17/2021) Colonoscopy Normal Normal 12/17/2021 Historical Provider HEALTH MAINTENANCE Edited Result - Final from Last 3 Months or Most Recently Relevant to Health Maintenance Insurance [facility] ONE CARE < 65 Care Teams Box Maker Wood Relationship Specialty Start Date End Date Guerline Mckeon MD [address] [place] [phone] PCP - General Family Medicine 06/06/18
--- OUTSIDE RECORDS SUMMARY | 2024-10-23 08:48 | XMS_ITS | Encounter Summary ---
Author Organization [employer] Address [address] [facility] 7t [place] [address] Care Team Providers Care Tissue Technician Name Role Phone Guerline Mckeon MD Primary Care Provider [phone] Reason for Visit * Reason Comments Med Refill Encounter Details Date Type Department Care Team ([facility] st Contact Info) Description 04/10/2023 Refill [facility] MEDICINE [address] [place], [place] [phone] Juju Flood MD [address] [place], [place] [phone] Social History Tobacco Use Types Packs/Day Years [...] Description 10/30/2024 9:15 AM EDT Office Visit [facility] [address] [place] [address] Guerline Mckeon MD [address] [place], [place] [phone] documented as of this encounter Visit Diagnoses Not on filedocumented in this encounter Additional Health Concerns Assessment Noted Time PHQ-9 Depression Total Score: 2 12/07/19 23 9:58 AM EDT documented as of this encounter Care Teams Tissue Technician Relationship Specialty Start Date End Date Guerline Mckeon MD [address] [place] [phone] PCP - General Family Medicine 06/06/18 documented as of this encounter
--- OUTSIDE RECORDS SUMMARY | 2024-10-23 08:48 | XMS_ITS | Encounter Summary ---
Author Organization [employer] Address [address] [facility] [address] [place] [address] Care Team Providers Care Work Force Advisor Name Role Phone Guerline Mckeon MD Primary Care Provider [phone] Reason for Visit * Reason Comments Med Refill Encounter Details Date Type Department Care Team ([facility] st Contact Info) Description 03/28/2023 Refill [facility] [address] [place] [address] Constantino Quintana FNP Generalized anxiety disorder Social [...] Description 10/30/2024 9:15 AM EDT Office Visit [facility] [address] [place] [address] Guerline Mckeon MD [address] [place] [address] documented as of this encounter Visit Diagnoses Diagnosis Generalized anxiety disorder documented in this encounter Additional Health Concerns Assessment Noted Time PHQ-9 Depression Total Score: 2 12/07/19 23 9:58 AM EDT documented as of this encounter Care Teams Work Force Advisor Relationship Specialty Start Date End Date Guerline Mckeon MD [address] [place] [address] PCP - General Family Medicine 06/06/18 documented as of this encounter
== END 2024-10-23 08:36 | disposition home or self-care (01) ==
LOC: HO.US 08:35
PROVIDERS: PCP Family Medicine; Visit Provider Student in an Organized Health Care Education/Training Program
DX: R10.11 Right upper quadrant pain (principal); K59.00 Constipation, unspecified
CPT/HCPCS: 76700

== ENCOUNTER → 2024-10-23 08:37 | Outpatient (BNV) | payer OTHER, SELFPAY | PROVIDERS: PCP Family Medicine; Visit Provider Radiology Diagnostic Radiology | DX: R93.2 Abnormal findings on diagnostic imaging of liver and biliary tract (principal); K76.0 Fatty (change of) liver, not elsewhere classified | CPT/HCPCS: 76700 ==

== ENCOUNTER 2024-11-06 10:17 | Outpatient (REF) | payer OTHER, SELFPAY ==
--- OUTSIDE RECORDS SUMMARY | 2024-11-06 11:51 | XMS_ITS | Encounter Summary ---
Author Organization [facility] Address [address] [facility] [address] [place] [address] Care Team Providers Care Safety Inspector Name Role Phone Guerline Mckeon MD Primary Care Provider [phone] Encounter Details Date Type Department Care Team ([facility] st Contact Info) Description 05/10/2022 Orders Only [facility] [address] [place], [place] [phone] Guerline Mckeon MD [address] [place], [place] [phone] Generalized anxiety disorder (Primary Dx) Social History [...] Primary documented in this encounter Care Teams Safety Inspector Relationship Specialty Start Date End Date Guerline Mckeon MD [address] [place] [phone] PCP - General Family Medicine 06/06/18 documented as of this encounter
[2024-11-06 11:58] LABS: Basophils Percent Auto 0.5 % (0-2); Eosinophils Absolute Auto 0.1 X10*3/uL (0.0-0.4); Eosinophils Percent Auto 1.8 % (0-4); Hematocrit 52.4 % (42.0-52.0); Hemoglobin 17.6 g/dl (14.0-18.0); Imm Gran Abs Auto 0.02 X10*3/uL (0.00-0.03); Imm Gran Pct Auto 0.3 % (0.0-0.4); Lymphocytes Percent Auto 39.4 % (20-40); MANUAL DIFF FLAG SCAN; Mean Corpuscular HGB Conc 33.6 g/dl (31.0-36.0); Mean Corpuscular Hemoglobin 31.3 pg (27.0-33.0); Mean Corpuscular Volume 93.2 fL (80.0-98.0); Mean Platelet Volume 12.1 fL (9.4-12.4); Monocytes Absolute Auto 0.5 X10*3/uL (0.1-1.2); Monocytes Percent Auto 6.6 % (2-11); Neutrophils Percent Auto 51.4 % (45-73); Platelet Count 181 X10*3/uL (160-400); Red Blood Count 5.62 X10*6/uL (4.60-5.80); Red Cell Distribution Width 12.3 % (11.0-16.0); SCAN SMEAR FLAG 1; White Blood Count 7.7 X10*3/uL (4.8-10.8)
[2024-11-06 12:20] LABS: Alanine Aminotransferase 62 U/L (0-40); Albumin Level 4.3 g/dL (3.5-5.0); Alkaline Phosphatase 60 U/L (39-117); Anion Gap 11 (12-20); Aspartate Amino Transferase 43 U/L (5-37); Bilirubin Direct 0.2 mg/dL (0.0-0.5); Bilirubin Total 0.6 mg/dL (0.0-1.0); Blood Urea Nitrogen 15 mg/dL (9-16); Calcium 9.1 mg/dL (8.4-10.2); Carbon Dioxide 26 mmol/L (22-29); Chloride 108 mmol/L (96-108); Cholesterol 183 mg/dL (<200); Estimated Glomerular Filt Rate > 60; Glucose Random 111 mg/dL (60-115); HDL Cholesterol 34 mg/dL (>40); LDL Cholesterol Calculated 123 mg/dL (<100); Sodium 141 mmol/L (135-145); Total Protein 7.6 g/dL (6.5-8.0); Triglycerides 132 mg/dL (<150)
[2024-11-06 12:30] LABS: SLIDE REVIEW VERIFIED
[2024-11-06 13:29] LABS: Reflex LDLD? No
== END 2024-11-06 10:18 | disposition home or self-care (01) ==
LOC: HO.HHCL 10:17
PROVIDERS: Visit Provider Family Medicine
DX: D75.1 Secondary polycythemia (principal); E78.5 Hyperlipidemia, unspecified; I10 Essential (primary) hypertension
CPT/HCPCS: 36415; 80053; 80061; 82248; 85025

== ENCOUNTER 2024-12-16 12:55 | Emergency (ER) | payer OTHER, SELFPAY ==
--- NOTE | ~2024-12-16 | XR_ITS ---
CLINICAL HISTORY: [place] Radiographs of the right elbow, 3 views Comparison: None available Findings: No acute fracture or dislocation. Moderate degenerative change with enthesophytes. 5 mm ossific fragment posterior to distal humerus seen on the lateral view is favored to be chronic/degenerative. Bone mineralization is normal. Soft tissue swelling. Impression: No acute fracture. This document has been electronically signed by: Rebekah Coles MD on 12/16/2024 14:43:01
[2024-12-16 13:37] VITALS: BP 116/76; PULSE 65; RESP 20; TEMP 36.1; O2SAT 95; BMI 31.7
--- NOTE | 2024-12-16 13:40 | ED.GENADULT ---
HPI - General Adult General Chief complaint: Fall Stated complaint: pain in elbow Time Seen by Provider: 12/16/24 13:44 Source: patient, RN notes reviewed and mica splitter (video) Limitations: language barrier History of Present Illness HPI narrative: 64-year-old male presents for evaluation of right elbow pain. Patient states he was [place] when he was getting up, slipped and fell landing onto his right elbow. He struck the tip of the elbow on the ground. He was able to get up immediately. He has had discomfort since this time, 8 days ago. He has applied ice. He does have some pain with movement. No skin breakdown. He is otherwise feeling well. No previous injury. Related Data Home Medications ?Medication ?Instructions ?Recorded ?Confirmed clonazepam 1 mg tablet 1 tab PO BID 09/10/21 02/09/23 lisinopril 20 mg tablet 1 tab PO DAILY 09/10/21 02/09/23 metoprolol succinate 100 mg 1 tab PO DAILY 09/10/21 02/09/23 tablet,extended release 24 hr quetiapine 100 mg tablet 1 tab PO BEDTIME 09/10/21 02/09/23 lisinopril 30 mg tablet 30 mg PO DAILY 12/28/21 02/09/23 cholecalciferol (vitamin D3) 25 25 mcg PO DAILY 04/09/22 02/09/23 mcg (1,000 unit) capsule (Vitamin D3) hydroxyzine HCl 25 mg tablet 25 - 50 mg PO BEDTIME PRN insomnia 04/09/22 02/09/23 tamsulosin 0.4 mg capsule 0.4 mg PO DAILY 04/09/22 02/09/23 ramelteon 8 mg tablet 8 mg PO BEDTIME PRN insomnia 08/06/22 02/09/23 sildenafil 50 mg tablet (Viagra) 50 mg PO DAILY PRN 08/06/22 02/09/23 oxybutynin chloride 5 mg tablet 5 mg PO BEDTIME 07/06/24 oxybutynin chloride 5 mg mg PO DAILY 07/06/24 tablet,extended release 24 hr pantoprazole 40 mg tablet,delayed mg PO DAILY 07/06/24 release pravastatin 40 mg tablet 40 mg PO BEDTIME 07/06/24 psyllium husk (with sugar) 3 PO 07/06/24 gram/12 gram oral powder (Reguloid (psyllium husk-sucrose)) Previous Rx's ?Medication ?Instructions ?Recorded esomeprazole magnesium 40 mg 40 mg PO DAILY #60 caps 12/17/21 capsule,delayed release nortriptyline 10 mg capsule 10 mg PO BEDTIME #30 caps 03/17/22 polyethylene glycol 3350 17 gram 17 g PO BID #100 ea 05/25/22 oral powder packet (Miralax) bisacodyl 10 mg rectal suppository 10 mg CO DAILY 3 days #3 ea 06/29/22 sennosides 8.6 mg tablet (Natural 17.2 mg (2 x 8.6 mg) PO DAILY 3 06/29/22 Senna Laxative) days #6 tabs amoxicillin 500 mg-potassium 1 tab PO Q8H #21 tabs 07/17/24 clavulanate 125 mg tablet (Augmentin) docusate sodium 100 mg capsule 100 mg PO BID #20 caps 09/08/24 (Colace) sodium,potassium,mag sulfates 17.5 See Rx Instructions PO .COMPLEX 09/27/24 gram-3.13 gram-1.6 gram oral soln #354 mL (Suprep Bowel Prep Kit) linaclotide 290 mcg capsule 290 mcg PO DAILY #30 caps 11/29/24 (Linzess) Allergies Allergy/AdvReac Type Severity Reaction Status Date / Time No Known Allergies Allergy Verified 12/16/24 13:42 Review of Systems Review of Systems: Yes all other systems are reviewed and are negative Musculoskeletal: Comments: pain to right elbow PMFSH Past Medical History Medical History Abdominal wall pain Hemorrhoids Incisional pain Internal hemorrhoids with complication Dyslipidemia Congenital cystic kidney disease Chronic abdominal pain Allergic rhinitis Chronic back pain Constipation GERD (gastroesophageal reflux disease) Anxiety BPH (benign prostatic hyperplasia) HTN (hypertension) Metabolic syndrome Overweight DUNIA (obstructive sleep apnea) Surgical History H/O abdominal surgery History of esophagogastroduodenoscopy (EGD) H/O colonoscopy H/O hemorrhoidectomy H/O hernia repair Social History Social History Household Members: None Alcohol intake: never Patient Tobacco Use Status: Never used Tobacco Second Hand Smoke Exposure: No Advance Directives: No Advance Directives Information Provided: No Do you have a plan to hurt others: No Plan Current occupational status: unemployed Physical Exam ED Vital Signs: Vital Signs - 24 hr 12/16/24 13:37 12/16/24 16:19 Temperature 96.9 F 96.9 F Pulse Rate 65 65 Respiratory Rate 20 20 Blood Pressure 116/76 116/76 Pulse Oximetry 95 95 Oxygen Delivery Method Room Air Room Air BMI result Body Mass Index 31.7 Const General: cooperative, no acute distress, alert and awake Extrem Other: 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 Full range of motion of all joints. Pronation and supination is intact. There is mild soft tissue swelling at the right olecranon. There is mild tenderness in this region. No crepitus. No traumatic bursitis. Radial pulses are +2 and equal bilaterally. Medical Decision Making Medical Decision Making MDM Narrative: 64-year-old male with direct trauma to the right elbow 8 days prior. Patient reports some improvement but continued discomfort. X-ray today is negative for acute process. Patient will continue symptomatic treatment. Reviewed all discharge instructions. No further questions at this time. Differential Diagnosis Differential Diagnoses: The differential diagnosis associated with the presentation includes Fracture Dislocation Contusion Sprain Radiology Impression Discussion of test interpretation with radiology: I have reviewed the radiologist's reading. Prescription Management I considered prescription management with: Pain Medication Discharge Plan Discharge Clinical Impression: Contusion of right elbow Qualifiers: Encounter type: initial encounter Qualified Code(s): S50.01XA - Contusion of right elbow, initial encounter Patient Disposition: Home, Self-Care Instructions: Contusion in Adults (ED) Additional Instructions: Rest. Ice. Avoid strenuous activity. Tylenol or ibuprofen available [id number] for pain. Follow-up with your primary care provider. Call this week to schedule a follow-up appointment. Return to the emergency department if you have any worsening of symptoms, or any concerns. Get well soon! Prescriptions: No Action nortriptyline 10 mg capsule 10 mg PO BEDTIME Qty: 30 3RF polyethylene glycol 3350 [Miralax] 17 gram powder in packet 17 g PO BID Qty: 100 0RF sennosides [Natural Senna Laxative] 8.6 mg tablet 17.2 mg PO DAILY 3 Days Qty: 6 1RF bisacodyl 10 mg suppository 10 mg CO DAILY 3 Days Qty: 3 0RF amoxicillin-pot clavulanate [Augmentin] 500-125 mg tablet 1 tab PO Q8H Qty: 21 0RF sodium,potassium,mag sulfates [Suprep Bowel Prep Kit] 17.5-3.13-1.6 gram recon soln See Rx Instructions PO .COMPLEX Qty: 354 0RF Rx Instructions: DILUTE; drink 1/2 at 6-8 pm and half at 11 PM- 1AM Linzess 290 mcg capsule 290 mcg PO DAILY Qty: 30 1RF esomeprazole magnesium 40 mg capsule,delayed release(DR/EC) 40 mg PO DAILY Qty: 60 2RF metoprolol succinate 100 mg tablet extended release 24 hr 1 tab PO DAILY lisinopril 20 mg tablet 1 tab PO DAILY quetiapine 100 mg tablet 1 tab PO BEDTIME clonazepam 1 mg tablet 1 tab PO BID pravastatin 40 mg tablet 40 mg PO BEDTIME oxybutynin chloride 5 mg tablet 5 mg PO BEDTIME docusate sodium [Colace] 100 mg capsule 100 mg PO BID Qty: 20 0RF tamsulosin 0.4 mg capsule 0.4 mg PO DAILY cholecalciferol (vitamin D3) [Vitamin D3] 25 mcg (1,000 unit) capsule 25 mcg PO DAILY hydroxyzine HCl 25 mg tablet 25 - 50 mg PO BEDTIME PRN (Reason: insomnia) sildenafil [Viagra] 50 mg tablet 50 mg PO DAILY PRN ramelteon 8 mg tablet 8 mg PO BEDTIME PRN (Reason: insomnia) lisinopril 30 mg tablet 30 mg PO DAILY pantoprazole 40 mg tablet,delayed release (DR/EC) PO DAILY Reguloid (psyllium husk-sucro) 3 gram/12 gram powder PO oxybutynin chloride 5 mg tablet extended release 24hr PO DAILY Interventions: ED Discharge Assessment Last Done: 12/16/24 16:19 Discharge Date/Time: 12/16/24 15:50 Print Language: [place]
[2024-12-16 16:19] VITALS: BP 116/76; PULSE 65; RESP 20; TEMP 36.1; O2SAT 95
== END 2024-12-16 15:50 | disposition home or self-care (01) ==
PROVIDERS: Emergency Provider Emergency Medicine; PCP Family Medicine
DX: S50.01XA Contusion of right elbow, initial encounter (principal); M25.521 Pain in right elbow; X50.1XXA Overexertion from prolonged static or awkward postures, initial encounter; X50.9XXA Other and unspecified overexertion or strenuous movements or postures, initial encounter; Y93.9 Activity, unspecified; Y92.9 Unspecified place or not applicable; Y99.8 Other external cause status
CPT/HCPCS: 73080; 99282; 99283

== ENCOUNTER → 2024-12-16 13:43 | Outpatient (BNV) | payer OTHER, SELFPAY | PROVIDERS: PCP Family Medicine; Visit Provider Radiology Diagnostic Radiology | DX: S59.901D Unspecified injury of right elbow, subsequent encounter (principal) | CPT/HCPCS: 73080 ==

== ENCOUNTER 2025-02-26 12:57 | Outpatient (RCR) | payer OTHER, SELFPAY | END 2025-05-03 13:55 | disposition home or self-care (01) | LOC: HO.PT 12:57 | PROVIDERS: PCP Family Medicine; Visit Provider Family Medicine | DX: M54.50 Low back pain, unspecified (principal); G89.29 Other chronic pain ==